=== PATIENT | female | born 1975 | race African-American/Black ===

== ENCOUNTER → 2024-04-20 11:30 | Outpatient (REF) | payer BC, SELFPAY | LOC: HWRAD 11:30 | PROVIDERS: ATTENDING PHYSICIAN Internal Medicine; FAMILY PHYSICIAN Internal Medicine | DX: R10.9 Unspecified abdominal pain (principal) | CPT/HCPCS: 74177; Q9967 ==

== ENCOUNTER → 2024-04-24 14:42 | Outpatient (REF) | payer BC, SELFPAY | LOC: HWRAD 14:42 | PROVIDERS: ATTENDING PHYSICIAN Internal Medicine | DX: E04.2 Nontoxic multinodular goiter (principal) | CPT/HCPCS: 76536 ==

== ENCOUNTER → 2024-04-25 06:59 | Outpatient (REF) | payer BC, SELFPAY | LOC: HWRAD 06:59 | PROVIDERS: ATTENDING PHYSICIAN Internal Medicine | DX: R10.9 Unspecified abdominal pain (principal); R93.89 Abnormal findings on diagnostic imaging of other specified body structures | CPT/HCPCS: 76700 ==

== ENCOUNTER → 2024-05-10 06:18 | Day surgery (SDC) | payer BC, SELFPAY | LOC: GI 06:18 | PROVIDERS: ATTENDING PHYSICIAN Internal Medicine Gastroenterology; FAMILY PHYSICIAN Internal Medicine | DX: K44.9 Diaphragmatic hernia without obstruction or gangrene (principal); K31.89 Other diseases of stomach and duodenum; K21.00 Gastro-esophageal reflux disease with esophagitis, without bleeding; R10.10 Upper abdominal pain, unspecified | CPT/HCPCS: 43239; 88305; 88342 ==

== ENCOUNTER 2024-05-11 15:56 | Inpatient (IN) | payer BC, SELFPAY ==
[2024-05-11 09:20] VITALS: BP 118/79
--- NOTE | 2024-05-11 09:27 | ED.GENMED ---
History of Present Illness
<Chiquis Rolle PA-C - Last Filed: 05/11/24 16:39>
General
Chief Complaint: Abdominal Symptoms
Source: patient
Exam Limitations: none
Time Seen by Provider: 05/11/24 09:25
Nursing documentation reviewed up to this point in time: agreed with
History of Present Illness
History of Present Illness:
48-year-old female with a past medical history of uterine fibroids, asthma, SBO 2009 presenting to emergency department today with concerns of persistent nausea and vomiting for the past few weeks its gotten progressively worse the past few days.
Patient reports that this all started 3 weeks ago when she started to get some upper abdominal pain with nausea and vomiting. She saw her primary care provider who ordered a CAT scan which revealed enhancing around the gallbladder. She
subsequently had ultrasound the gallbladder which did not show any evidence of cholecystitis. She also had lab work done she got the results back today and she says that they were normal. She was then referred to [facility] and had
endoscopy done which showed a small hiatal hernia, gastritis, and esophagitis. Patient also notes that she had a 13 pound weight loss within the past few weeks. Patient states that she has not had a bowel movement since 5 days ago. Patient denies
any chest pain, shortness of breath, vomiting belly pain, dysuria, hematuria. Patient denies fevers or chills, recent long distance travel, any sick contacts. Patient was started on Carafate and PPI by her GI doctor and she subsequently had
diarrhea. Patient states that she has not been able to tolerate any of her p.o. meds.
Past History
<Chiquis Rolle PA-C - Last Filed: 05/11/24 16:39>
Past History
ED Past Medical History: Other (Asthma, recent miscarriage 2 weeks ago)
Social History
Tobacco: Non-smoker
Alcohol: None
Family History
Family History: Other (Mother with history of Chiari malformation with decompression)
Review of Systems
<Chiquis Rolle PA-C - Last Filed: 05/11/24 16:39>
Review of Systems
All Other Systems: ROS reviewed and negative except as documented in HPI and ROS
Phy Exam
<Chiquis Rolle PA-C - Last Filed: 05/11/24 16:39>
Physical Exam
Physical Exam:
General: Patient is well appearing and in no acute distress; non-toxic
Skin: Warm and dry, no rashes or lesions
Head: Normocephalic, atraumatic
Eyes: Sclera non-icteric. EOMs intact. PERRLA.
Cardiac: Regular rate and rhythm, no murmurs
Peripheral Vascular: No lower extremity swelling or edema
Pulm: Normal respiratory effort, lung sounds equal bilaterally
Abdomen: No abdominal tenderness to palpation, no abdominal distention
Neuro: CN II-XII intact, no focal neurologic deficits.
Psychiatric: Appropriate mood and affect.
Course
<Chiquis Rolle PA-C - Last Filed: 05/11/24 16:39>
Orders/Labs/Results
Orders:
Orders
05/11/24 09:47
0.9% Sodium Chloride 1000 ml [Nss] 1,000 ml IV BOLUS
Ondansetron Injectable [Zofran] 4 mg IV NOW STA
05/11/24 09:55
Pantoprazole [Protonix IV] 40 mg IV NOW STA
05/11/24 10:01
Complete Blood Count/With Diff Urgent
05/11/24 10:42
Add On- LAB Urgent
Tests Added?: beta qual
05/11/24 10:43
Hida Scan [NM Hepatobiliary (hida)] Urgent
Comment:
Reason For Exam: persistent nausea and vomiting
05/11/24 11:59
Test Result ONCE
05/11/24 12:28
Comprehensive Metabolic Panel Urgent
HCG, Serum Qualitative Screen Urgent
Comment: ADD
Lipase Urgent
05/11/24 13:46
0.9% Sodium Chloride 1000 ml [Nss] 1,000 ml IV BOLUS
05/11/24 14:09
Ondansetron Injectable [Zofran] 4 mg IV NOW STA
05/11/24 15:43
Admit/Transfer Patient As Directed
Co-Sign Provider:
Level of Care: Inpatient admission
Assign to:: Medical/Surgical
Physician / Group: Radha
Diagnosis: ADAM, Intractable Nausea/Vomiting
Reason for Hospitalization: IVFs
Expected length of stay greater than two midnights?: Yes
ELOS- Estimated Length of Stay in days: 3
I certify the patient meets the requirements for IP care: Yes
05/11/24 15:44
Code Status As Directed
Resuscitation Status: Full Code
05/11/24 15:45
PRN Pain Medication Management As Directed
May give lesser potent ordered pain med per pt: Yes
preference::
Protocol:: Medication orders for pain may be administered in a
manner that supports deferring to patient preference
when the pt is:
- Requesting an ordered lesser potent pain medication.
Least to most potent pain medications are defined
as: acetaminophen < NSAID < tramadol < opioids
(morphine, oxycodone, hydromorphone).
- Requesting a lesser dose of the same medication IF
ORDERED.
- Requesting a less intrusive route of administration
if both routes are prescribed by the provider (PO <
IV).
Abnormal Lab Results
05/11/24 05/11/24
10:01 12:28
MCH 32.4 H pg
(27.0-31.0)
RDW 11.3 L %
(11.5-14.5)
MPV 10.8 H fL
(7.4-10.4)
Carbon Dioxide 13 L* mmol/L
(22-30)
BUN 26 H mg/dl
(7-17)
Creatinine 1.1 H mg/dL
(0.6-1.0)
Total Bilirubin 1.4 H mg/dl
(0.2-1.3)
05/11/24 10:01
05/11/24 12:28
Vital Signs
Initial and Last Documented VS:
Initial Vital Signs
Temp Pulse Resp BP Pulse Ox
97.9 F 126 16 118/79 98
05/11/24 09:20 05/11/24 09:20 05/11/24 09:20 05/11/24 09:20 05/11/24 09:20
Last Documented Vital Signs
Temp Pulse Resp BP Pulse Ox
97.9 F 99 16 118/63 100
05/11/24 09:20 05/11/24 15:07 05/11/24 15:07 05/11/24 15:07 05/11/24 15:07
<Pete Shah, DO - Last Filed: 05/11/24 14:07>
Orders/Labs/Results
Orders:
Orders
05/11/24 09:47
0.9% Sodium Chloride 1000 ml [Nss] 1,000 ml IV BOLUS
Ondansetron Injectable [Zofran] 4 mg IV NOW STA
05/11/24 09:55
Pantoprazole [Protonix IV] 40 mg IV NOW STA
05/11/24 10:01
Complete Blood Count/With Diff Urgent
05/11/24 10:42
Add On- LAB Urgent
Tests Added?: beta qual
05/11/24 10:43
Hida Scan [NM Hepatobiliary (hida)] Urgent
Comment:
Reason For Exam: persistent nausea and vomiting
05/11/24 11:59
Test Result ONCE
05/11/24 12:28
Comprehensive Metabolic Panel Urgent
HCG, Serum Qualitative Screen Urgent
Comment: ADD
Lipase Urgent
05/11/24 13:46
0.9% Sodium Chloride 1000 ml [Nss] 1,000 ml IV BOLUS
05/11/24 14:09
Ondansetron Injectable [Zofran] 4 mg IV NOW STA
05/11/24 15:43
Admit/Transfer Patient As Directed
Co-Sign Provider:
Level of Care: Inpatient admission
Assign to:: Medical/Surgical
Physician / Group: Radha
Diagnosis: ADAM, Intractable Nausea/Vomiting
Reason for Hospitalization: IVFs
Expected length of stay greater than two midnights?: Yes
ELOS- Estimated Length of Stay in days: 3
I certify the patient meets the requirements for IP care: Yes
05/11/24 15:44
Code Status As Directed
Resuscitation Status: Full Code
05/11/24 15:45
PRN Pain Medication Management As Directed
May give lesser potent ordered pain med per pt: Yes
preference::
Protocol:: Medication orders for pain may be administered in a
manner that supports deferring to patient preference
when the pt is:
- Requesting an ordered lesser potent pain medication.
Least to most potent pain medications are defined
as: acetaminophen < NSAID < tramadol < opioids
(morphine, oxycodone, hydromorphone).
- Requesting a lesser dose of the same medication IF
ORDERED.
- Requesting a less intrusive route of administration
if both routes are prescribed by the provider (PO <
IV).
Abnormal Lab Results
05/11/24 05/11/24
10:01 12:28
MCH 32.4 H pg
(27.0-31.0)
RDW 11.3 L %
(11.5-14.5)
MPV 10.8 H fL
(7.4-10.4)
Carbon Dioxide 13 L* mmol/L
(22-30)
BUN 26 H mg/dl
(7-17)
Creatinine 1.1 H mg/dL
(0.6-1.0)
Total Bilirubin 1.4 H mg/dl
(0.2-1.3)
05/11/24 10:01
05/11/24 12:28
Vital Signs
Initial and Last Documented VS:
Initial Vital Signs
Temp Pulse Resp BP Pulse Ox
97.9 F 126 16 118/79 98
05/11/24 09:20 05/11/24 09:20 05/11/24 09:20 05/11/24 09:20 05/11/24 09:20
Last Documented Vital Signs
Temp Pulse Resp BP Pulse Ox
97.9 F 99 16 118/63 100
05/11/24 09:20 05/11/24 15:07 05/11/24 15:07 05/11/24 15:07 05/11/24 15:07
Marilynlt;Chiquis Rolle PA-C - Last Filed: 05/11/24 16:39>
MDM/Problems Addressed
Differential Diagnosis Includes:
Differentials include bowel obstruction, ileus, gastroparesis,
MDM/Problems Addressed:
Nausea and vomiting:
48-year-old female with a past medical history of uterine fibroids, asthma, SBO 2009 presenting to emergency department today with concerns of persistent nausea and vomiting for the past few weeks its gotten progressively worse the past few days.
Patient reports that this all started 3 weeks ago when she started to get some upper abdominal pain with nausea and vomiting. She no longer has pain but her nausea and vomiting persist. Outpatient ultrasound the gallbladder was negative, CT scan
negative, lab work normal. Endoscopy demonstrated gastritis, esophagitis, small hiatal hernia. Patient notes a 13 pound weight loss. Patient states that this feels like her bowel obstruction in the past. On exam, her vitals are stable, she is
afebrile well-appearing, she has no abdominal tenderness to palpation. No abdominal distention. Will treat with IV fluids, Zofran, Protonix and reassess.
On reassessment, patient continues with vomiting persistently. Patient was given another dose of Zofran. Patient went for her HIDA scan which was normal and showed patent cystic and common bile ducts. Her lab work today demonstrates acidosis and
an acute kidney injury. She will need to stay in the hospital for fluid resuscitation. This is likely result of GI losses. Will admit for further evaluation and potential re CAT scan and GI evaluation.
Chronic conditions affecting care:
History of small bowel obstruction, asthma, uterine fibroids
Acute Exacerbation and/or Progression of Chronic Illness:
n/a
<Chiquis Rolle PA-C - Last Filed: 05/11/24 16:39>
*Pulse Oximetry
Patient hypoxic: no
*Critical Care Note
Total Time (30-74mins, 75-104mins- exclusive of procedures): Not Applicable
Data Reviewed
Review of Other/Old Records Reveals: Records (Reviewed endoscopy report on paper, reviewed echocardiogram from 2019)
Source: patient and records
Prescriptions/Medications Considered But Not Given:
n/a
Further Testing Considered But Not Given:
n/a
<Chiquis Rolle PA-C - Last Filed: 05/11/24 16:39>
Patient Management
Escalation/DeEscalation of care consider admission/obs:
Admission indicated, case reviewed with my attending
ED Attending Note
<Chiquis Rolle PA-C - Last Filed: 05/11/24 16:39>
-
Portions of this chart may have been created with voice recognition software.� Occasional wrong word or��sound alike� substitutions may have occurred due to the inherent limitations of voice recognition software.
<Pete Shah, DO - Last Filed: 05/11/24 14:07>
ED Attending Note
Patient seen and examined by attending physician: Yes
I performed the substantive portion of visit, reviewed & personally made and approve the management plan that is documented in note by myself or AISHWARYA.: Yes
ED Attending Note:
Seen with PA examined independently 48-year-old female status post fibroid removal with iatrogenic bowel injury with obstruction treated with an NG tube and then surgery, subsequent without any difficulty upper abdominal pain bloating
after eating some sushi full workup as an outpatient including CAT scan upper endoscopy and ultrasound of the right upper quadrant no definitive diagnosis other than gastritis and esophagitis, he is scheduled to have an outpatient HIDA scan she has
been vomiting, lost 13 pounds,
Labs are noted
Patient will require admission, HIDA scan is pending if unremarkable consideration for repeat CAT scan with IV p.o. contrast
Discharge Plan
Departure
Patient Disposition: Admit
Date of Disposition: 05/11/24
Time of Disposition: 14:50
Admit to: Med/Surg
Presentation/result/management discussed w/ accepting MD/DO: Hospitalist
Condition: Fair
Discharge Problem:
Nausea & vomiting
Interventions
Interventions:
*Risk Screen - Suicide Last Done: 05/11/24 09:20
*General Assessment Last Done: 05/11/24 09:20
*Neglect/Abuse Screening Last Done: 05/11/24 09:20
ED- Fall Risk Assessment Last Done: 05/11/24 11:11
*ED COVID-19 Vaccine History Last Done: 05/11/24 11:11
QM-Wgclfr-Kkeyxmsmif Assessment Last Done: 05/11/24 10:37
[2024-05-11 10:15] LABS: % Basophils 0.7 % (0-2); % Eosinophils 0.3 % (0-6); % Immature Granulocytes 0.2 % (0-0.5); % Lymphocytes 23.1 % (20.5-51.1); % Monocytes 8.3 % (1.7-9.3); % Neutrophils 67.4 % (42.2-75.2); Absolute Lymphocytes 1.3 10^3/uL (1.2-3.4); Absolute Monocytes 0.5 10^3/uL (0.1-0.6); Absolute Neutrophils 3.9 10^3/uL (1.4-6.5); Hematocrit 44.2 % (37.0-47.0); Hemoglobin 15.2 g/dL (12.0-16.0); Mean Corp Hgb Conc. 34.4 g/dL (33.0-37.0); Mean Corpuscular Hgb 32.4 pg (27.0-31.0); Mean Corpuscular Volume 94.2 fL (81.0-99.0); Mean Platelet Volume 10.8 fL (7.4-10.4); Nucleated Red Blood Cells % 0 %; Platelet Count 337 10^3/uL (130-400); Red Blood Cell Count 4.69 10^6/uL (4.20-5.40); Red Cell Dist. Width 11.3 % (11.5-14.5); White Blood Cell Count 5.8 10^3/uL (4.8-10.8)
[2024-05-11] MEDS: PROTONIX IV 40 MG IV (10:29)
[2024-05-11] MEDS: ZOFRAN 4 MG IV ×2 (10:29→15:06)
[2024-05-11] MEDS: NSS 1000 IV ×2 (10:29→15:05)
[2024-05-11 10:30] VITALS: BMI 20.1
[2024-05-11 10:32] VITALS: BMI 21.5
[2024-05-11 12:54] LABS: HCG, Serum Qualitative Screen Negative
[2024-05-11 13:06] LABS: ALT (SGPT) 18 U/L (0-35); AST (SGOT) 33 U/L (14-36); Albumin 4.8 g/dl (3.5-5.0); Alkaline Phosphatase 89 U/L (38-126); Blood Urea Nitrogen 26 mg/dl (7-17); Calcium 9.9 mg/dl (8.4-10.2); Carbon Dioxide 13 mmol/L (22-30); Chloride 100 mmol/L (98-107); Estimated Creatinine Clearance 53 ml/min; Glucose 71 mg/dl (70-99); Lipase 154 U/L (23-300); Potassium 4.1 mmol/L (3.5-5.1); Sodium 140 mmol/L (135-145); Total Bilirubin 1.4 mg/dl (0.2-1.3); Total Protein 7.2 g/dl (6.3-8.2); eGFR > 60.00
[2024-05-11 15:07] VITALS: BP 118/63
--- NOTE | 2024-05-11 15:37 | HPS.HSE ---
Family Physician
-
Family Physician: Siobhan Myers
Chief Complaint
-
Intractable Nausea and Vomiting
History of Present Illness
Patient is a 48 yo female with a history of asthma, uterine fibroids, and SBO in 2009 presents with nausea and vomiting. Her symptoms began 3 weeks ago when she developed acute, left-sided burning abdominal pain after a meal of sushi. A few days
later she developed persistent nausea and vomiting that would occur a couple hours after she would eat. She was then started on a PPI and sucralfate for suspected gastric ulcer, and since starting these her burning abdominal pain has subsided.
However, her vomiting has continued to worsen and starting 5 days ago there is now green bilious matter in her emesis. She notes that she has lost weight because she cannot keep any food down. This morning she became lightheaded and short of breath
with heart palpitations while showering. She reports constipation as well for the past 6 days. She does not smoke, use illicit drugs including marijuana, or drink alcohol. She is concerned that she has a partial bowel obstruction, since her symptoms
are similar to her past SBO. She denies chest pain, diarrhea, dysuria, urinary retention/frequency, joint pains, or myalgias.
Medical History
Past Medical History
Past Medical History: Reports Other
Additional Past Medical History:
Asthma
Past Surgical History: Reports None
Social History
Tobacco: Non-smoker
Drug: Other (Denies Marijuana)
Family History
Family History: Not pertinent
Allergies / Home Medications
Allergies reflects when Allergies were last updated in [facility].
Home Medications with original date entered in [facility]
Allergy/Medication List:
Allergies
Allergy/AdvReac Type Severity Reaction Status Date / Time
spironolactone Allergy Intermediate Unknown Verified 05/11/24 09:19
Home Medications
albuterol sulfate 2.5 mg/0.5 mL solution for nebulization 5 mg inhalation Q4H Lung/Breathing Issues 05/11/24
fluticasone furoate 200 mcg-vilanterol 25 mcg/dose inhalation powder (Breo Ellipta) 1 inh inhalation DAILY Lung/Breathing Issues 05/11/24
omeprazole 40 mg capsule,delayed release 40 mg PO DAILY Gastrointestinal Issue 05/11/24
ondansetron 4 mg disintegrating tablet 4 mg PO Q8H PRN nausea 05/11/24
sucralfate 1 gram tablet (Carafate) 1 g PO ACHS Gastrointestinal Issue 05/11/24
Review of Systems
-
A 12 point ROS was completed and negative except as noted: Yes
Constitutional: Denies Fever or Chills
Respiratory: Denies Cough or Trouble Breathing
Cardiac: Denies Chest Pain or Palpitations
Abdomen/GI: Reports See HPI
Physical Exam
Vital Signs
Vital Signs
Temp Pulse Resp BP Pulse Ox
97.9 F 99 16 118/63 100
05/11/24 09:20 05/11/24 15:07 05/11/24 15:07 05/11/24 15:07 05/11/24 15:07
Physical Exam
General: Comfortable and Conversant
HEENT: Anicteric and Moist mucous membranes
Respiratory: Clear and Non Labored Respirations
Cardiac: S1/S2 and Regular Rhythm
GI: Soft and Non Tender
Musculoskeletal: No Clubbing, No Cyanosis and No Edema
Skin: Warm and Dry
Neuro: Awake, Alert, Oriented and Nonfocal/grossly intact
Psych: Calm
Laboratory Results
-
05/11/24 10:01
05/11/24 12:28
Laboratory Results
Total Bilirubin 1.4 mg/dl (0.2-1.3) H 05/11/24 12:28
AST 33 U/L (14-36) 05/11/24 12:28
ALT 18 U/L (0-35) 05/11/24 12:28
Alkaline Phosphatase 89 U/L (38-126) 05/11/24 12:28
Lipase 154 U/L (23-300) 05/11/24 12:28
Abd/Pelvis CT Scan - Apr 20
Mild hyperenhancement of the gallbladder wall, with mild adjacent fat stranding adjacent gallbladder. No gallbladder distention, and no radiopaque gallstones are seen. Acute cholecystitis is considered unlikely, however if there is clinical
suspicion, right upper quadrant ultrasound may be helpful.
Abd Ultrasound - Apr 25
Gallbladder is of normal appearance. No evidence of cholelithiasis or acute cholecystitis. No biliary ductal dilation.
Endoscopy - May 10
LA Grade A Esophagitis
Gastritis
HIDA Scan - May 11
Patent cystic and common bile ducts. No scintigraphic evidence of acute cholecystitis.
Data Reviewed
-
Lab Data: Labs Reviewed by me
Old Records: Reviewed
Impression/Plan
-
Acute Renal Insufficiency
-Continue IVFs
-Recheck creatinine in AM
Metabolics Acidosis
-Give sodium bicarb now and start drip
-Recheck labs in AM
Intractable Nausea and Vomiting, unclear etiology, possibly gastroparesis
-Change Zofran to Reglan
-Check Obstruction Series
-Allow clear liquids
Esophagitis/Gastritis
-Continue Carafate and Protonix
DVT proph: Lovenox
Code Status: Full Code
--- NOTE | 2024-05-11 16:52 | EDRN ---
This charge nurse was asked to speak to patient because she is refusing to go to a semi private room and will leave AMA if she cannot go to a semi private room. I spoke to the patient, and offered that she could wait until all the discharges have
left the hospital to see if a private room becomes available, but there were no guarantees that she would get a private room. I explained the types of patients that require private rooms and unfortunately those often take all of the private rooms
that we have available. Pt seems to understand and will wait to see if a private room becomes available. 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
[2024-05-11 18:19] VITALS: BP 100/62
--- NOTE | 2024-05-11 18:22 | W.PN.UPDATE ---
Update Note
Progress Note Update
This is an addendum to the H&P written by Brooklyn Schaffer on 05/11/2024.� Patient seen and examined independently with PA.
48-year-old female past medical history of asthma, small bowel obstruction in 2009 presenting with 3 weeks of persistent daily vomiting.� She underwent CT scan of abdomen pelvis on 04/20 without any notable findings.� She underwent abdominal
ultrasound 04/25 without any abnormality.� She underwent EGD yesterday which showed grade a esophagitis, small hiatal hernia, gastritis.
HIDA scan today is unremarkable.�
Labs show anion gap metabolic acidosis and ADAM.
Unclear etiology of persistent vomiting.� Could be secondary to gastroparesis which will require outpatient gastric emptying study.� Check obstruction series to rule out bowel obstruction.� As needed Reglan to help with symptoms.� Clear liquid diet
and try to advance diet.� Consult GI if no improvement in symptoms.� Bicarb drip for metabolic acidosis.
[2024-05-11 18:52] VITALS: BP 108/61
[2024-05-11 18:53] VITALS: BMI 22.0
--- NOTE | 2024-05-11 18:53 | TRANSFER ---
pt arrives from [facility] at 1830. walked into room. vitals stable. family with pt. 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
[2024-05-11 19:00] VITALS: BP 119/63
[2024-05-11] MEDS: SYMBICORT 160/4.5 MCG INHALER 2 PUFF INH (19:46)
[2024-05-11] MEDS: SODIUM BICARBONATE 50 MEQ IV (19:55)
[2024-05-11] MEDS: SODIUM BICARBONATE 1150 MEQ IV (19:56)
[2024-05-11] MEDS: LOVENOX 40 MG SC (19:57)
[2024-05-11 23:10] VITALS: BP 105/69
[2024-05-11] MEDS: REGLAN 5 MG IV (23:56)
[2024-05-11] MEDS: FLUSH (NSS) 2 FLUSH IV (23:56)
[2024-05-12] MEDS: SODIUM BICARBONATE 1150 MEQ IV ×2 (06:21→17:26)
[2024-05-12 07:55] VITALS: BP 103/64
[2024-05-12 09:01] LABS: Hematocrit 37.8 % (37.0-47.0); Hemoglobin 12.6 g/dL (12.0-16.0); Mean Corp Hgb Conc. 33.3 g/dL (33.0-37.0); Mean Corpuscular Hgb 32.2 pg (27.0-31.0); Mean Corpuscular Volume 96.7 fL (81.0-99.0); Mean Platelet Volume 10.7 fL (7.4-10.4); Platelet Count 255 10^3/uL (130-400); Red Blood Cell Count 3.91 10^6/uL (4.20-5.40); Red Cell Dist. Width 11.2 % (11.5-14.5); White Blood Cell Count 5.3 10^3/uL (4.8-10.8)
[2024-05-12] MEDS: NON-FORMULARY ITEM 1 MCG INH (09:02)
--- NOTE | 2024-05-12 09:09 | W.PN.HOSP.TC ---
Today's Communication/Plan
-
N.p.o.
IV fluids
General Surgery consult
Assessment / Plan
Assessment / Plan
Gen-AAOx3, NAD
HEENT-NC, AT, anicteric, clear oral mm
Neck-supple
CV-reg, no M, +S1/S2
Lungs-clear B/L
Abd-soft, NT, ND
Ext-no edema
Musculoskeletal-no cyanosis, clubbing
Skin-warm and dry
Neuro-grossly non-focal
Psych-calm, cooperative
SBO -prior history of SBO in [address] of [address] patient on n.p.o., IV fluids, general surgery consult. Obstruction series noted.
ADAM - due to volume depletion. Metabolic acidosis noted. Continue sodium bicarb infusion. Labs pending for today. Etiology is decreased oral intake due to nausea and vomiting, anorexia.
Grade A esophagitis/gastritis -noted on EGD, 05/10. Continue Protonix.
Mild intermittent asthma -stable.
Full code
Anticipated Discharge: > 48 hours
Subjective/Interval History
-
Date of Service: May 12, 2024
Patient seen and examined. Denies further vomiting. Abdominal pain improving.
Objective Data
-
Labs:
Laboratory Results
05/12/24 05/12/24
08:08 08:09
WBC 5.3
Hgb 12.6
Hct 37.8
Plt Count 255 D
Sodium Pending
Potassium Pending
Chloride Pending
Carbon Dioxide Pending
BUN Pending
Creatinine Pending
Glucose Pending
Calcium Pending
Vital Signs:
Vital Signs
Temp Pulse Resp BP Pulse Ox
98.3 F 97 16 103/64 99
05/11/24 23:10 05/12/24 07:55 05/12/24 07:55 05/12/24 07:55 05/12/24 07:55
I&O
05/11/24 05/12/24 05/13/24
06:59 06:59 06:59
Intake Total 1680 / 1680
Balance 1680 / 1680
Review of Systems
-
History Source: Patient
All other systems: Reviewed and negative
[2024-05-12] MEDS: NSS (PRESERVATIVE FREE) 10 ML IV (09:31)
[2024-05-12] MEDS: PROTONIX IV 40 MG IV (09:31)
[2024-05-12 09:43] LABS: Blood Urea Nitrogen 12 mg/dl (7-17); Carbon Dioxide 20 mmol/L (22-30); Chloride 96 mmol/L (98-107); Estimated Creatinine Clearance 73 ml/min; Glucose 74 mg/dl (70-99); Magnesium 1.8 mg/dl (1.6-2.3); Potassium 3.7 mmol/L (3.5-5.1); Sodium 138 mmol/L (135-145); eGFR > 60.00
[2024-05-12] MEDS: OMNIPAQUE 50 ML PO (11:40)
[2024-05-12] MEDS: ZOFRAN 4 MG IV ×2 (11:45→20:43)
--- NOTE | 2024-05-12 13:26 | CON.GS ---
Consultation
-
Date/Time Consultation Requested: 05/12/24 0910
Requesting Provider: Jenny
Performing Provider: Kolton Vázquez
Medical History
-
Chief Complaint: intractable nausea
History of Present Illness:
48 yo female with a history of asthma, , RAL myomectomy in 2009 with course complicated by a SBO with subsequent ex lap for HAY that admission who presents with a 3 week history of nausea. She was initially able to tolerate light foods such
as soups and toast but for the past 4-5 days has not been able to tolerate much if any PO intake. She also notes that although she has been passing flatus, she has been unable to pass a BM over the past 4-5 days as well with discomfort in her
abdomen similar to prior obstruction. On exam, the abdomen is nontender and nondistended. She has been following with her PCP as well as Dr. Morin of gastroenterology for diagnostic work up with normal outpatient HIDA and US. She had EGD on 05/10 as
an outpatient as well with esophagitis/gastritis noted and biopsies sent. She was started on omeprazole and carafate thereafter with plan for gastric emptying study if no improvement on these meds.
Past Medical History
Past Medical History: Asthma, GERD (esophagitis) and Other (Chiari malformation)
Past Surgical History: , Gynecological (RAL myomectomy in 2010 at [facility]) and Other (Ex lap with HAY in 2009)
Social History
Tobacco: Non-Smoker
Family History
Family History: Reviewed & Not Pertinent
Allergies / Home Medications
Allergy/AdvReac Type Severity Reaction Status Date / Time
spironolactone Allergy 'heart Verified 05/11/24 17:08
races'
�Medication �Instructions �Recorded �Confirmed �Type
albuterol sulfate 2.5 mg/0.5 mL 5 mg inhalation Q4H Lung/Breathing 05/11/24 05/11/24 History
solution for nebulization Issues
fluticasone furoate 200 1 inh inhalation DAILY 05/11/24 05/11/24 History
mcg-vilanterol 25 mcg/dose Lung/Breathing Issues
inhalation powder (Breo Ellipta)
omeprazole 40 mg capsule,delayed 40 mg PO DAILY Gastrointestinal 05/11/24 05/11/24 History
release Issue
ondansetron 4 mg disintegrating 4 mg PO Q8H PRN nausea 05/11/24 05/11/24 History
tablet
sucralfate 1 gram tablet (Carafate) 1 g PO ACHS Gastrointestinal Issue 05/11/24 05/11/24 History
Review of Systems
-
History Source: Patient and Family
All other systems: Negative unless noted
A 10 point review of systems was completed, and was negative except as per HPI.
Physical Exam
Vital Signs
Temp Pulse Resp BP Pulse Ox
98.3 F 97 16 103/64 99
05/11/24 23:10 05/12/24 07:55 05/12/24 07:55 05/12/24 07:55 05/12/24 07:55
05/11/24 05/12/24 05/13/24
06:59 06:59 06:59
Actual Weight 58.014 kg
Body Mass Index (BMI) 22.0
Lab Results
05/12/24 08:09
05/12/24 08:08
WBC 5.3 10^3/uL (4.8-10.8) 05/12/24 08:09
Hgb 12.6 g/dL (12.0-16.0) 05/12/24 08:09
Hct 37.8 % (37.0-47.0) 05/12/24 08:09
Plt Count 255 10^3/uL (130-400) D 05/12/24 08:09
Abs Immat Gran (auto) 0.0 10^3/uL (0-0.05) 05/11/24 10:01
Neutrophils % 67.4 % (42.2-75.2) 05/11/24 10:01
Physical Exam
General: Well Developed and No Apparent Distress
HEENT: Moist Mucous Membranes
Respiratory: Non Labored Respirations
GI: Soft, Non Tender and Non Distended
Skin: Warm and Dry
Neuro: Awake and AO x 3
Psych: Calm
Data Reviewed
-
Radiology: Image Personally Visualized and interpreted, Report Reviewed by me, Discussed with Physician, Discussed with Patient and Discussed with Family
Labs: Labs Reviewed by me, Discussed with Physician, Discussed with Patient and Discussed with Family
Old Records: Reviewed
Assessment / Plan
-
48 yo female with a history of asthma, RAL myomectomy in 2009 with course complicated by a SBO with subsequent ex lap for HAY that admission who presents with a 3 week history of nausea. She also notes that although she has been passing flatus, she
has been unable to pass a BM over the past 4-5 days as well as worsening nausea and vomiting. Exam benign. She has been following with her PCP as well as Dr. Morin of gastroenterology for diagnostic work up with normal outpatient HIDA and US. She
had EGD on 05/10 as an outpatient as well with esophagitis/gastritis noted and biopsies sent. She was started on omeprazole and carafate thereafter with plan for gastric emptying study if no improvement on these meds. KUB with some concern for SBO
although no significant bowel distention noted. AFVSS. No leukocytosis.
--Plan CT abd/pelvis with PO contrast to further evaluate
--Keep NPO
--Further surgical recs pending CT findings
--- NOTE | 2024-05-12 14:36 | CM ---
IA completed with pt and at bedside.
Pt is a 48 yr old female admitted with nausea/vomitting and constipation. Work up for possible SBO
At baseline, pt is indep and working.
PCP; Siobhan Myers
Pharm; [address]
PLAN; Likely home with no needs; check in with pt at in for needs
[2024-05-12 15:00] VITALS: BP 112/62
[2024-05-12] MEDS: COMPAZINE 10 MG IV (17:27)
[2024-05-12] MEDS: LOVENOX 40 MG SC (17:27)
[2024-05-12] MEDS: FLUSH (NSS) 2 FLUSH IV (20:43)
[2024-05-12 23:42] VITALS: BP 118/66
[2024-05-13 07:07] VITALS: BP 99/57
[2024-05-13] MEDS: NON-FORMULARY ITEM 1 MCG INH (07:21)
[2024-05-13] MEDS: SODIUM BICARBONATE 1150 MEQ IV (08:31)
[2024-05-13] MEDS: PROTONIX IV 40 MG IV (08:31)
[2024-05-13] MEDS: ZOFRAN 4 MG IV ×2 (08:32→16:59)
[2024-05-13] MEDS: NSS (PRESERVATIVE FREE) 10 ML IV (08:32)
[2024-05-13 08:36] LABS: ALT (SGPT) 23 U/L (0-35); AST (SGOT) 33 U/L (14-36); Albumin 3.6 g/dl (3.5-5.0); Alkaline Phosphatase 68 U/L (38-126); Blood Urea Nitrogen 6 mg/dl (7-17); Calcium 9.1 mg/dl (8.4-10.2); Carbon Dioxide 30 mmol/L (22-30); Chloride 94 mmol/L (98-107); Estimated Creatinine Clearance 73 ml/min; Glucose 70 mg/dl (70-99); Potassium 3.4 mmol/L (3.5-5.1); Sodium 140 mmol/L (135-145); Total Bilirubin 1.4 mg/dl (0.2-1.3); Total Protein 5.7 g/dl (6.3-8.2); eGFR > 60.00
[2024-05-13] MEDS: NSS 1000 IV ×2 (09:41→22:05)
--- NOTE | 2024-05-13 09:47 | W.PN.HOSP.TC ---
Today's Communication/Plan
-
MR enterography
IV KCl rider
Check magnesium
Assessment / Plan
Assessment / Plan
Gen-AAOx3, NAD
HEENT-NC, AT, anicteric, clear oral mm
Neck-supple
CV-reg, no M, +S1/S2
Lungs-clear B/L
Abd-soft, NT, ND
Ext-no edema
Musculoskeletal-no cyanosis, clubbing
Skin-warm and dry
Neuro-grossly non-focal
Psych-calm, cooperative
SBO -prior history of SBO in 2009 requiring lysis of adhesions. Continue n.p.o., IV fluids. Spoke with general surgery, plan for MR enterography given concern for small bowel mass on CT.
ADAM - due to volume depletion. ADAM resolved with IV fluids.
Metabolic acidosis -resolved. Stop bicarbonate infusion, will change to normal saline.
Hypokalemia -replete intravenously. Check magnesium.
Grade A esophagitis/gastritis -noted on EGD, 05/10. Continue Protonix.
Mild intermittent asthma -stable.
Full code
Anticipated Discharge: > 48 hours
Subjective/Interval History
-
Date of Service: May 13, 2024
Patient seen and examined. Still with nausea but no further vomiting. No bowel movement since Tuesday.
Objective Data
-
Labs:
Laboratory Results
05/13/24
07:31
Sodium 140
Potassium 3.4 L
Chloride 94 L
Carbon Dioxide 30
BUN 6 L
Creatinine 0.8
Glucose 70
Calcium 9.1
Total Bilirubin 1.4 H
AST 33
ALT 23
Alkaline Phosphatase 68
Vital Signs:
Vital Signs
Temp Pulse Resp BP Pulse Ox
97.9 F 98 15 99/57 100
05/13/24 07:07 09/08/24 07:07 05/13/24 07:07 05/13/24 07:07 05/13/24 07:07
I&O
05/12/24 05/13/24 05/14/24
06:59 06:59 06:59
Intake Total 1680 / 1680 960 / 960
Balance 1680 / 1680 960 / 960
Review of Systems
-
History Source: Patient
All other systems: Reviewed and negative
[2024-05-13 10:11] LABS: Magnesium 1.8 mg/dl (1.6-2.3)
[2024-05-13] MEDS: KCL 270 MEQ IV (10:36)
--- NOTE | 2024-05-13 10:56 | W.PN.GS2 ---
Addendum entered and electronically signed by Ervin Vázquez MD 05/13/24 11:47:
I saw and examined the patient.
The INFORMATION SYSTEMS SECURITY MANAGER's note was reviewed and I agree with the note.
Comment:
48-year-old male with PMH of asthma, fibroids, Chiari malformation (asymptomatic, incidental finding), who underwent myomectomy in 2009 which was complicated by a prolonged ileus/obstruction and underwent ex lap with lysis of adhesions 17 days
later, who presents for concern of worsening nausea and vomiting associated with abdominal pain. Initially, she was worked up with a CT on 04/20 which showed findings related to the gallbladder, no other issues. An ultrasound was done on 04/25 which
showed a normal gallbladder without gallstones or evidence of cholecystitis. She then underwent an EGD on 05/[address] Morin, which showed esophagitis and gastritis, biopsies were sent. Over the last 3 days, she had worsening of her abdominal
pain associated with worsening nausea and bilious vomiting. She states that this is similar to her prior SBO, but this time she continues to pass flatus. In the ED, a HIDA was done, which was negative. An AXR was done showing signs concerning for
an obstruction. General surgery was consulted for further management
She denies nausea or vomiting, is passing flatus, but no BMs yet.
AFVSS, abdomen soft, nondistended, nontender, no rebound or guarding
- CTAP shows partial SBO with transition point in the proximal jejenum associated with segmental thickening
-Upon with Dr. Javier, there may have been some associated thickening CT 3 weeks ago, but difficult to be sure as there is no oral contrast in that area
�Differential for small bowel thickening is broad, including infectious, inflammatory (Crohn's/stricture), ulcer, mass (benign versus malignant)
�Will order MRE and attempt to clarify diagnosis
�Follow-up AXR to follow contrast through her GI tract
�Will order fecal calprotectin, CRP, prealbumin
�Will consult GI for their opinion/recommendations
�Okay to advance to clears; okay for p.o. meds
� No antibiotics currently indicated from surgical standpoint
� Appreciate hospitalist
Original Note:
Today's Communication / Plan
-
Clear liquids
Continue GI work up
Assessment / Plan
-
48 yo female presenting with nausea x3 weeks with recent onset of vomiting as well (following as OP with GI with recent scope). No BM for [address] imaging yesterday consistent with a partial SBO with transition point near an area of small bowel
wall thickening in the LUQ, unclear etiology; inflammatory (crohn's, infectious, etc) vs mechanical (mass). Initially with pain in the LUQ which has now resolved.
AFVSS. Intermittent nausea, abdominal exam is benign.
--Trial of clears
--XR of abd this am to follow contrast through
--MRE study
--Send fecal calprotectin if patient has BM
--Check CRP
--Will consult gastroenterology to follow with us
--Analgesics/antiemetics
--Medical management as per primary team
Subjective Data
-
Date of Service: May 13, 2024
Patient seen and examined at bedside with Dr. Vázquez. Spouse present, questions addressed. She had some nausea which improved with antiemetic early this am. No vomiting since the ED. Not passing stool or flatus today. Denies bloating or abdominal
pain.
Objective Data
-
Intake and Output
05/12/24 05/13/24 05/14/24
06:59 06:59 06:59
Intake Total 1680 / 1680 960 / 960
Balance 1680 / 1680 960 / 960
Intake:
Oral fluids 480 / 480
IV fluids (Total) 1200 / 1200 960 / 960
Other:
Number of approximated SMALL 3
amounts of urine
Number of approximated MODERATE 2
amounts of urine
Number of approximated LARGE 1
amounts of urine
Vital Signs
Temp Pulse Resp BP Pulse Ox
97.9 F 98 15 99/57 100
05/13/24 07:07 05/13/24 07:07 05/13/24 07:07 05/13/24 07:07 05/13/24 07:07
Lab Results
05/12/24 08:09
05/13/24 07:31
Calcium 9.1 mg/dl (8.4-10.2) 05/13/24 07:31
Magnesium 1.8 mg/dl (1.6-2.3) 05/13/24 07:31
Total Bilirubin 1.4 mg/dl (0.2-1.3) H 05/13/24 07:31
AST 33 U/L (14-36) 05/13/24 07:31
ALT 23 U/L (0-35) 05/13/24 07:31
Alkaline Phosphatase 68 U/L (38-126) 05/13/24 07:31
Total Protein 5.7 g/dl (6.3-8.2) L D 05/13/24 07:31
Albumin 3.6 g/dl (3.5-5.0) 05/13/24 07:31
Physical Exam
-
NAD
ABD soft, nt, nd
--- NOTE | 2024-05-13 11:15 | CON.GI ---
Consultation
-
Date/Time Consultation Requested: 05/13/24
Date/Time Consultation Performed: 05/13/24
Requesting Provider: Dr. Vázquez
Performing Provider: Dr. Gayle
Reason for Consultation: pSBO
Medical History
Chief Complaint / HPI
Chief Complaint: N/V, epigastric pain
History of Present Illness:
Ms. Eng is a 48-year-old female with past medical history of asthma, fibroids, postoperative small bowel obstruction admitted with ongoing abdominal pain, nausea and vomiting. She follows with Dr. Valdez as an outpatient, for workup of this
issue. Initially, evaluated by PCP and underwent a CT abdomen pelvis and ultrasound without any acute GI pathology identified. She was then started on PPI twice daily with some symptomatic improvement. Initially, she did not have any nausea or
vomiting, then underwent an EGD with findings of a small hiatal hernia, gastritis, bilious fluid in the stomach. Following her EGD she started having persistent nausea and vomiting which prompted her to come into the ER for further evaluation.
Repeat CT scan performed after admission demonstrated a partial small bowel obstruction with transition point near an area of small bowel wall thickening in the left upper quadrant. She initially had LUQ abdominal pain at the start of her sx a few
weeks ago, but that has resolved, she has had no abdominal pain for >1 week. N/V only started last tuesday. She does feel like this is how her last bowel obstruction felt back in 2009 following her fibroid surgery at [facility]. General surgery
consulted. Reports her last bowel movement was 5 days ago, currently not passing any stool or flatus. Reports at baseline, no issues with constipation, moves her bowels regularly without issue. Denies any blood thinners or NSAID use. Denies
tobacco, alcohol or illicit drug use. Denies family history of GI malignancy, IBD, celiac disease.
VSS. Labs WNL.
CT A/P w/ PO and IV Contrast 05/12/24:
There are dilated loops of proximal to mid jejunum, with mild to moderate wall thickening and prominence of the valvulae conniventes within these dilated loops of small bowel. There appears to be a transition in caliber in the left lower
abdomen/upper pelvis, in a region of apparent wall thickening. The Gallbladder appears contracted with suggestion of GB wall thickening, which is nonspecific.
Abd Xray (05/11/24): Dilated small bowel loops w/ air-fluid levels, with nondilated colon, suggestive of small bowel obstruction.
HIDA (05/11/24): There was unremarkable uptake within the hepatic parenchyma with prompt visualization of a normal appearing hepatobiliary tree. The gallbladder visualizes normally and there is normal clearance from the hepatic parenchyma into the
intestines.
CT abdomen/pelvis with IV and oral contrast 04/20/2024
Mild hyperenhancement of gallbladder wall with mild adjacent fat stranding. No gallbladder distention or gallstones.
Uterine fibroid measuring 3.9 cm
Ultrasound abdomen 04/25/2024
Gallbladder is normal. No evidence of cholelithiasis or acute cholecystitis. No biliary dilatation.
EGD 05/10/2024: LA grade a esophagitis. Small hiatal hernia. Mild inflammation characterized by erythema found in the stomach. A small amount of bilious fluid mixed with residual food was found in the gastric body interfering with visualization.
The examined duodenum appeared normal. Pathology pending.
Past Medical History
Past Medical History: Asthma and Other (fibroids)
Social History
Tobacco: Non-Smoker
Alcohol: None
Drug: None
Personal:
Living: With Family
Employment: Employed
Family History
Family History: Reviewed & Not Pertinent
Allergies / Home Medications
Allergy/AdvReac Type Severity Reaction Status Date / Time
spironolactone Allergy 'heart Verified 05/11/24 17:08
races'
�Medication �Instructions �Recorded
albuterol sulfate 2.5 mg/0.5 mL 5 mg inhalation Q4H Lung/Breathing 05/11/24
solution for nebulization Issues
fluticasone furoate 200 1 inh inhalation DAILY 05/11/24
mcg-vilanterol 25 mcg/dose Lung/Breathing Issues
inhalation powder (Breo Ellipta)
omeprazole 40 mg capsule,delayed 40 mg PO DAILY Gastrointestinal 05/11/24
release Issue
ondansetron 4 mg disintegrating 4 mg PO Q8H PRN nausea 05/11/24
tablet
sucralfate 1 gram tablet (Carafate) 1 g PO ACHS Gastrointestinal Issue 05/11/24
Review of Systems
-
History Source: Patient and Family
All other systems: A 12 pt ROS was Negative except as stated above in HPI
Vital Signs
Temp Pulse Resp BP Pulse Ox
97.9 F 98 15 99/57 100
05/13/24 07:07 05/13/24 07:07 05/13/24 07:07 05/13/24 07:07 05/13/24 07:07
Physical Exam
Exam
General: Well Developed, Well Nourished, No Apparent Distress and Comfortable
GI: Soft, Non Tender, Non Distended and Normal Bowel Sounds
Results
WBC 5.3 10^3/uL (4.8-10.8) 05/12/24 08:09
Hgb 12.6 g/dL (12.0-16.0) 05/12/24 08:09
Hct 37.8 % (37.0-47.0) 05/12/24 08:09
MCV 96.7 fL (81.0-99.0) 05/12/24 08:09
Plt Count 255 10^3/uL (130-400) D 05/12/24 08:09
Absolute Neuts (auto) 3.9 10^3/uL (1.4-6.5) 05/11/24 10:01
Sodium 140 mmol/L (135-145) 05/13/24 07:31
Potassium 3.4 mmol/L (3.5-5.1) L 05/13/24 07:31
Chloride 94 mmol/L (98-107) L 05/13/24 07:31
Carbon Dioxide 30 mmol/L (22-30) 05/13/24 07:31
BUN 6 mg/dl (7-17) L 05/13/24 07:31
Creatinine 0.8 mg/dL (0.6-1.0) 05/13/24 07:31
Calcium 9.1 mg/dl (8.4-10.2) 05/13/24 07:31
Total Bilirubin 1.4 mg/dl (0.2-1.3) H 05/13/24 07:31
AST 33 U/L (14-36) 05/13/24 07:31
ALT 23 U/L (0-35) 05/13/24 07:31
Alkaline Phosphatase 68 U/L (38-126) 05/13/24 07:31
Lipase 154 U/L (23-300) 05/11/24 12:28
Diagnostic Image Results:
Prior GI Procedures:
EGD:
Colonoscopy:
Assessment / Plan
-
48-year-old female with past medical history of asthma, fibroids, postoperative small bowel obstruction admitted with persistent N/V found to have a partial small bowel obstruction, with normal imaging 2 weeks ago.
Partial Small Bowel Obstruction--ddx: infectious vs. inflammatory/new Crohns dx vs. mass vs. intussusception given lack of findings of recent CT scan
-not seen on CT scan 2 weeks ago; repeat CT A/P with partial SBO, transition point in prox jejunum associated with segmental thickening
-s/p EGD on 05/10, bilious fluid/food residue in stomach
-benign abdominal exam, no NGT at this time, trial of CLD
-general surgery following
-agree with MRE for better evaluation of the small bowel; UGI s/ SBFT also ordered
-records from [facility]
-check fecal calprotectin, CRP
-GI will continue to follow
Discussed plan at length with patient and at bedside. All questions answered.
Total Time Spent with Patient (in minutes): 40
Data Reviewed
-
Radiology: Report Reviewed by me
CT Scan: Report Reviewed by me
Ultrasound: Report Reviewed by me
Old Records: Reviewed
-
-
Thank you for consultation and allowing me to participate in the patient's care. Please call the electrical and electronic assembler GI physician during the after hours with any questions or concerns.
[2024-05-13 12:42] LABS: Prealbumin (Transthyretin) 9.9 mg/dl (17.6-36.0)
[2024-05-13 15:48] VITALS: BP 98/72
[2024-05-13] MEDS: LOVENOX 40 MG SC (16:58)
[2024-05-13 23:18] VITALS: BP 110/63
[2024-05-14] MEDS: ZOFRAN 4 MG IV ×3 (00:31→17:42)
[2024-05-14 04:39] LABS: Hematocrit 31.9 % (37.0-47.0); Hemoglobin 10.7 g/dL (12.0-16.0); Mean Corp Hgb Conc. 33.5 g/dL (33.0-37.0); Mean Corpuscular Hgb 31.8 pg (27.0-31.0); Mean Corpuscular Volume 94.9 fL (81.0-99.0); Mean Platelet Volume 10.7 fL (7.4-10.4); Platelet Count 226 10^3/uL (130-400); Red Blood Cell Count 3.36 10^6/uL (4.20-5.40); Red Cell Dist. Width 11.4 % (11.5-14.5); White Blood Cell Count 4.1 10^3/uL (4.8-10.8)
[2024-05-14 05:30] LABS: ALT (SGPT) 24 U/L (0-35); AST (SGOT) 35 U/L (14-36); Albumin 3.7 g/dl (3.5-5.0); Alkaline Phosphatase 68 U/L (38-126); Blood Urea Nitrogen 5 mg/dl (7-17); Calcium 9.2 mg/dl (8.4-10.2); Carbon Dioxide 15 mmol/L (22-30); Chloride 105 mmol/L (98-107); Estimated Creatinine Clearance 73 ml/min; Glucose 64 mg/dl (70-99); Sodium 141 mmol/L (135-145); Total Bilirubin 1.2 mg/dl (0.2-1.3); Total Protein 5.9 g/dl (6.3-8.2); eGFR > 60.00
[2024-05-14] MEDS: NON-FORMULARY ITEM 1 MCG INH (07:26)
--- NOTE | 2024-05-14 07:33 | W.PN.HOSP.TC ---
Today's Communication/Plan
-
see bold
Assessment / Plan
Assessment / Plan
SBO -prior history of SBO in 2009 requiring lysis of adhesions. MRE shows 3 cm obstructing stricture at the proximal jejunum with circumferential soft tissue thickening/enhancement. Continue n.p.o., IV fluids, f/u rec from surg
ADAM - due to volume depletion. ADAM resolved with IV fluids.
Metabolic acidosis -change normal saline back to sodium bicarb IV fluids
Hypokalemia -repleted and resolved, mag normal
Grade A esophagitis/gastritis -noted on EGD, 05/10. Continue Protonix.
Mild intermittent asthma -stable.
DVT prophylaxis�subcu Lovenox
Full code
Total time spent to see the patient on the floor, examine the patient, review data and lab results, discuss treatment plan with patient, nursing staff around 38 minutes.
Physical Exam
General: Appears to not feel well, no acute distress
HEENT: Normocephalic, Atraumatic, EOMI, MMM
Respiratory: Clear to Auscultation bilaterally
Cardiac: Normal S1/S2, Regular Rate and Rhythm
GI: Soft, Nontender, Nondistended, Normal Bowel Sounds
Extremities: No Clubbing, Cyanosis, or Edema
Neuro: Nonfocal/Grossly Intact
Psych: Calm, Cooperative
Derm: No Visible lesions
Anticipated Discharge: 24 - 48 hours
Subjective/Interval History
-
Date of Service: May 14, 2024
Patient reports having multiple episodes of emesis overnight, last one 4 AM, bile. She passed gas yesterday. No bowel movement. No fever.
Objective Data
-
Labs:
Laboratory Results
05/14/24
04:21
WBC 4.1 L
Hgb 10.7 L
Hct 31.9 L
Plt Count 226
Sodium 141
Potassium 4.0
Chloride 105
Carbon Dioxide 15 L
BUN 5 L
Creatinine 0.8
Glucose 64 L
Calcium 9.2
Total Bilirubin 1.2
AST 35
ALT 24
Alkaline Phosphatase 68
Vital Signs:
Vital Signs
Temp Pulse Resp BP Pulse Ox
97.8 F 99 14 110/63 99
05/13/24 23:18 05/14/24 07:29 05/14/24 07:29 05/13/24 23:18 05/14/24 07:29
I&O
05/13/24 05/14/24 05/15/24
06:59 06:59 06:59
Intake Total 960 / 960 3220 / 3220
Balance 960 / 960 3220 / 3220
[2024-05-14 07:42] VITALS: BP 92/59
--- NOTE | 2024-05-14 08:37 | W.PN.GI.CBS2 ---
Today's Communication / Plan
-
MRE today
Assessment / Plan
-
48-year-old female with past medical history of asthma, fibroids, postoperative small bowel obstruction admitted with persistent N/V found to have a partial small bowel obstruction, with normal imaging 2 weeks ago.
Partial Small Bowel Obstruction--ddx: infectious vs. inflammatory/new Crohns dx vs. mass vs. intussusception given lack of findings of recent CT scan
-not seen on CT scan 2 weeks ago; repeat CT A/P (05/12) with partial SBO, transition point in prox jejunum associated with segmental thickening
-Abd Xray/obstruction series (05/13): nonspecific bowel gas pattern w/o signs of obstruction, no dilated loops of bowel seen. Oral contrast observed into the colon around mid descending colon. Air and stool seen scattered throughout colon and rectum.
-s/p EGD on 05/10, bilious fluid/food residue in stomach
-recommend NPO-- failed trial of clears yesterday; need to consider placement of NGT pending MRE
-general surgery following
-MRE today
-records from [facility]
-CRP 13.90
-check fecal calprotectin (once patient has a BM)
-GI will continue to follow
Discussed plan at length with patient and at bedside. All questions answered.
Subjective
Subjective
Date of Service: May 14, 2024
Patient with ongoing nausea and bilious emesis overnight. She had some broth yesterday, then multiple episodes of bilious emesis. No abdominal pain. Passed a small amount of flatus yesterday, no BM yet. Obstruction series w/o evidence of
obstruction.
Objective
Data Reviewed
Laboratory Data:
Laboratory Results
05/14/24 04:21
05/14/24 04:21
Laboratory Results
Magnesium 1.8 mg/dl (1.6-2.3) 05/13/24 07:31
Total Bilirubin 1.2 mg/dl (0.2-1.3) 05/14/24 04:21
AST 35 U/L (14-36) 05/14/24 04:21
ALT 24 U/L (0-35) 05/14/24 04:21
Alkaline Phosphatase 68 U/L (38-126) 05/14/24 04:21
Lipase 154 U/L (23-300) 05/11/24 12:28
Vital Signs and I&O:
Vital Signs
Temp Pulse Resp BP Pulse Ox
98.4 F 101 18 92/59 98
05/14/24 07:42 05/14/24 07:42 05/14/24 07:42 05/14/24 07:42 05/14/24 07:42
I&O
05/13/24 05/14/24 05/15/24
06:59 06:59 06:59
Intake Total 960 / 960 3220 / 3220
Balance 960 / 960 3220 / 3220
Physical Exam
Physical Exam
General: Well Developed, Well Nourished, No Apparent Distress but slightly anxious
GI: Soft, Non Tender, Non Distended and Normal Bowel Sounds
[2024-05-14] MEDS: NSS (PRESERVATIVE FREE) 10 ML IV (09:05)
[2024-05-14] MEDS: PROTONIX IV 40 MG IV (09:06)
--- NOTE | 2024-05-14 09:32 | W.PN.CRS1 ---
Today's Communication / Plan
-
As below
Assessment/Plan
-
48-year-old male with PMH of asthma, fibroids, Chiari malformation (asymptomatic, incidental finding), who underwent myomectomy in 2009 which was complicated by a prolonged ileus/obstruction and underwent ex lap with lysis of adhesions 17 days
later, who presents for concern of worsening nausea and vomiting associated with abdominal pain. Initially, she was worked up with a CT on 04/20 which showed findings related to the gallbladder, no other issues. An ultrasound was done on 04/25 which
showed a normal gallbladder without gallstones or evidence of cholecystitis. She then underwent an EGD on 05/[address] Morin, which showed esophagitis and gastritis, biopsies were sent. Over the last 3 days, she had worsening of her abdominal
pain associated with worsening nausea and bilious vomiting. She states that this is similar to her prior SBO, but this time she continues to pass flatus. In the ED, a HIDA was done, which was negative. An AXR was done showing signs concerning for
an obstruction. General surgery was consulted for further management
AFVSS
WBC 4.1, Hb 10.7, Cr 0.8
- CTAP shows partial SBO with transition point in the proximal jejenum associated with segmental thickening
�Failed trial of clears overnight; low threshold for NGT; continue Zofran as needed
-Upon review on recent CT with Dr. Javier, there may have been some associated thickening on CTAP 3 weeks ago, but difficult to be sure as there is no oral contrast in that area
�Differential for small bowel thickening is broad, including infectious, inflammatory (Crohn's/stricture), ulcer, mass (benign versus malignant)
�Follow-up MRE and attempt to clarify diagnosis
�Follow-up repeat AXR
�Follow-up fecal calprotectin, CRP�13.9, follow-up prealbumin
�Appreciate GI
� Make n.p.o., continue IVF
� No antibiotics currently indicated from surgical standpoint
� Appreciate hospitalist
Subjective Data
Subjective Data
Date of Service: May 14, 2024
Early this morning, patient had nausea and vomited twice. Currently, she still feels a little nauseous, but better than before.
Denies any significant pain.
Passed flatus last night, no BMs yet. Voiding.
Objective Data
-
Vital Signs
Temp Pulse Resp BP Pulse Ox
98.4 F 101 18 92/59 98
05/14/24 07:42 05/14/24 07:42 05/14/24 07:42 05/14/24 07:42 05/14/24 07:42
Intake & Output
05/13/24 05/14/24 05/15/24
06:59 06:59 06:59
Intake Total 960 / 960 3220 / 3220
Balance 960 / 960 3220 / 3220
Intake:
Oral fluids 1260 / 1260
IV fluids (Total) 960 / 960 1960 / 1960
IV piggybacks 0 / 0
TPN/PPN 0 / 0
Lipids 0 / 0
Blood products 0 / 0
Other:
Number of approximated SMALL 3
amounts of urine
Number of approximated MODERATE 2 2
amounts of urine
Number of immeasurable emeses? 2
Lab Results
05/14/24 04:21
05/14/24 04:21
Physical Exam
-
General: No Acute Distress and AOx3
HEENT: Grossly Normal
Abdomen: Soft, Non Distended, Non Tender, No Guarding and No Rebound
Skin: Warm and Dry
[2024-05-14 12:16] LABS: Prealbumin (Transthyretin) 9.7 mg/dl (17.6-36.0)
[2024-05-14] MEDS: SODIUM BICARBONATE 1075 MEQ IV (13:02)
--- NOTE | 2024-05-14 13:34 | CM ---
Reviewed chart, patient still requiring acute level of care/ Workup in progress. Functionally at baseline and will most likely be able to return home when stable medically.
Plan: Case management will continue to follow and assist with discharge planning. Home when medically cleared for discharge.
[2024-05-14 15:30] VITALS: BP 108/68
--- NOTE | 2024-05-14 17:23 | PN.CDI ---
CDI
- -
CDI:
Physician Documentation Request
Admit Date: 05/11/24 15:56
Dear Doctor Do,
05/12 note states 'Pt meets criteria for severe protein calorie malnutrition of acute illness with > 2% wt loss x 1 week, prolonged poor intake prior to hospital admits < 50% est needs > 5 days. '
Based on the above information and your assessment, which of the following most accurately represents the patient's nutritional status?
Malnutrition (specify if mild, moderate or severe)
No nutritional deficiency
Other (please specify)
Amelia Criteria ([facility]ist 2017)
2 or more criteria must be present for either
non severe or severe malnutrition
Note that the criteria differs related to the
presence of an acute or chronic illness
Acute Illness Chronic Illness
Energy Intake Non Severe: <75% for >7 days Non Severe: <75% for >1 month
Severe: <50% for >5 days Severe: <75% for >1 month
Weight Loss Non Severe: 1-2% over 1 week Non Severe: 5% over 1 month
5% over 1 month 7.5% over 3 months
7.5% over 3 months 10% over 6 months
1 year N/A 20% over 1 year
Severe: >2% over 1 week Severe: >5% over 1 month
>5% over 1 month >7.5% over 3 months
>7.5% over 3 months >10% over 6 months
1 year N/A >20% over 1 year
Body Fat Non Severe: Mild Decrease Non Severe: Mild Loss
Severe: Moderate Decrease Severe: Severe Loss
Muscle Mass Non Severe: Mild Decrease Non Severe: Mild Loss
Severe: Moderate Decrease Severe: Severe Loss
Fluid Accumulation Non Severe: Mild Accumulation Non Severe: Mild Accumulation
Severe: Moderate to severe Severe: Moderate to severe
accumulation accumulation
Reduced Dividing Machine Operator Strength Non Severe: N/A Non Severe: N/A
Severe: Measurably reduced Severe: Measurably reduced
Use of terms such as suspected, likely, concern for, or probable (associated with a specific diagnosis that is being evaluated, monitored, or treated as if it exists) are acceptable and can be coded in the inpatient setting, when documented at the
time of discharge.
Thank you,
Kamryn Rosenberg RN, BSN
CDI Specialist
tiger text
Please use your independent medical judgment in providing your response.
[2024-05-14] MEDS: LOVENOX 40 MG SC (17:41)
--- NOTE | 2024-05-14 20:17 | W.PN.UPDATE ---
Update Note
Progress Note Update
Had lengthy discussion with patient, patient's spouse and patient's father; patient reports having had another episode of vomiting earlier today with no real flatus or BMs throughout the day; I explained the results of the MRI, specifically that
there is a stricture in the proximal jejunum that is suspicious for a small bowel mass and it is causing an upstream blockage; possibilities of the etiology of this mass include malignancy and benign causes like stricture and inflammation; I
discussed this with Dr. Gayle who feels that this is less likely related to an inflammatory stricture and therefore less likely to respond with steroids; because the patient has not improved with nonoperative measures, I recommend moving forward
with surgery to resect that area; I explained the planned operative approach includes robotic assisted surgery in order to lyse the adhesions and potentially perform a small bowel resection; minimally invasive surgery is associated with less pain,
quicker recovery, less adhesions, but does have a risk of missed bowel injuries; I explained that my priority is to do this surgery safely and therefore it may require an open incision; other risk include, but not limited to, anastomotic failure and
recurrent bowel obstructions; I recommend placing the NG tube tonight to help decompress the upper GI tract and remain n.p.o. with IVF; plan for surgery tomorrow late morning; within the next 1 to 2 days, I also recommend getting a PICC and starting
TPN; all questions were answered and the patient and patient's family were appreciative
[2024-05-14] MEDS: HURRICAINE SPRAY 1 APPLIC TOPICAL (22:20)
--- NOTE | 2024-05-14 22:52 | PTCARENOTE ---
14 F Cook Sump NGT placed to L nare without difficulty. Placement verified via auscultation. Pt vomited moderate amount of bilious emesis and NGT immediately drained 550 mL bilious drainage. Pt verbalizes throat discomfort and requesting
analgesic (hurricane spray used prior to insertion per MD order). [employer] covering house contacted - electronic orders received for PRN chloraseptic spray. IVF clarified with surgeon. Plan of care discussed, ongoing education.
[2024-05-14 23:06] VITALS: BP 109/70
[2024-05-14] MEDS: CHLORASEPTIC/SORE THROAT SPRAY 1 SPRAY PO (23:10)
[2024-05-15] VITALS (12 sets, daily range): BP systolic 102–142; BP diastolic 61–74
[2024-05-15] MEDS: SODIUM BICARBONATE 1075 MEQ IV (00:27)
--- NOTE | 2024-05-15 00:39 | PTCARENOTE ---
Pt vomited around NGT moderate amount of bilious emesis. Denies nausea, reports 'the tube isn't in right'. Placement verified via auscultation w/another RN, + placement verified. Pt is anxious about NGT and surgery tomorrow. Suspect pt has
sensitive gag reflex. Emotional support provided, offered to get an order for something to help relax, pt declined, stating 'I will just suffer'. at bedside. Plan of care ongoing.
[2024-05-15] MEDS: OFIRMEV 100 IV (05:45)
[2024-05-15 06:21] LABS: Hematocrit 36.5 % (37.0-47.0); Hemoglobin 12.1 g/dL (12.0-16.0); Mean Corp Hgb Conc. 33.2 g/dL (33.0-37.0); Mean Corpuscular Hgb 32.4 pg (27.0-31.0); Mean Corpuscular Volume 97.9 fL (81.0-99.0); Mean Platelet Volume 11.3 fL (7.4-10.4); Platelet Count 197 10^3/uL (130-400); Red Blood Cell Count 3.73 10^6/uL (4.20-5.40); Red Cell Dist. Width 11.2 % (11.5-14.5); White Blood Cell Count 5.9 10^3/uL (4.8-10.8)
[2024-05-15 06:26] LABS: INR 1.13; PT 14.3 Sec (11.4-14.6)
[2024-05-15 06:27] LABS: APTT 23.7 Sec (23.4-35.0)
[2024-05-15] MEDS: HEPARIN 5000 UNITS SC (06:28)
[2024-05-15 07:03] LABS: Blood Urea Nitrogen 6 mg/dl (7-17); Calcium 9.6 mg/dl (8.4-10.2); Carbon Dioxide 8 mmol/L (22-30); Chloride 107 mmol/L (98-107); Estimated Creatinine Clearance 73 ml/min; Glucose 73 mg/dl (70-99); Magnesium 1.5 mg/dl (1.6-2.3); Phosphorus 2.6 mg/dl (2.5-4.5); Potassium 3.6 mmol/L (3.5-5.1); Sodium 139 mmol/L (135-145); eGFR > 60.00
--- NOTE | 2024-05-15 07:32 | PTCARENOTE ---
Critical lab communicated to attending via TT.
[2024-05-15] MEDS: NON-FORMULARY ITEM 1 MCG INH (07:51)
--- NOTE | 2024-05-15 08:21 | W.PN.GI.CBS2 ---
Today's Communication / Plan
-
NGT for decompression, NPO for OR today.
Assessment / Plan
-
48-year-old female with past medical history of asthma, fibroids, postoperative small bowel obstruction admitted with persistent N/V found to have a partial small bowel obstruction, with normal imaging 2 weeks ago.
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
-MRE (05/14): Short segment severe narrowing of the proximal jejunum measuring 3 cm in length with circumferential soft tissue thickening and enhancement. Soft tissue at this level measures approximately 3.0 x 2.8 x 3.1 cm. Upstream jejunal dilatation
measuring 4 cm in caliber and at least moderate dilatation of the stomach, compatible with a small bowel obstruction.
-not seen on CT scan 2 weeks ago; repeat CT A/P (05/12) with partial SBO, transition point in prox jejunum associated with segmental thickening
-Abd Xray/obstruction series (05/13): nonspecific bowel gas pattern w/o signs of obstruction, no dilated loops of bowel seen. Oral contrast observed into the colon around mid descending colon. Air and stool seen scattered throughout colon and rectum.
-s/p EGD on 05/10, bilious fluid/food residue in stomach
-NGT for decompression
-NPO for OR today
-CRP 13.90
-check fecal calprotectin (once patient has a BM)
-GI will continue to follow
Subjective
Subjective
Date of Service: May 15, 2024
Patient seen in follow-up. NGT placed yesterday with large bilious output. OR today for small bowel resection with Dr. Vázquez.
Objective
Data Reviewed
Laboratory Data:
Laboratory Results
05/15/24 05:52
05/15/24 05:52
Laboratory Results
PT 14.3 Sec (11.4-14.6) 05/15/24 05:52
INR 1.13 05/15/24 05:52
APTT 23.7 Sec (23.4-35.0) 05/15/24 05:52
Phosphorus 2.6 mg/dl (2.5-4.5) 05/15/24 05:52
Magnesium 1.5 mg/dl (1.6-2.3) L 05/15/24 05:52
Total Bilirubin 1.2 mg/dl (0.2-1.3) 05/14/24 04:21
AST 35 U/L (14-36) 05/14/24 04:21
ALT 24 U/L (0-35) 05/14/24 04:21
Alkaline Phosphatase 68 U/L (38-126) 05/14/24 04:21
Lipase 154 U/L (23-300) 05/11/24 12:28
Vital Signs and I&O:
Vital Signs
Temp Pulse Resp BP Pulse Ox
98.1 F 90 16 109/70 100
05/14/24 23:06 05/15/24 07:52 05/15/24 07:52 05/14/24 23:06 05/15/24 07:52
I&O
05/14/24 05/15/24 05/16/24
06:59 06:59 06:59
Intake Total 3220 / 3220 2770 / 2770
Output Total 60 / 60
Balance 3220 / 3220 2710 / 2710
Physical Exam
Physical Exam
General: Well Developed, Well Nourished,
HEENT: +NGT, minimal bilious output
GI: Soft, Non Tender, Non Distended and Normal Bowel Sounds
[2024-05-15] MEDS: SODIUM BICARBONATE 1150 MEQ IV (09:36)
[2024-05-15] MEDS: MAGNESIUM SULFATE 102 GRAMS IV (09:36)
[2024-05-15] MEDS: PROTONIX IV 40 MG IV (09:37)
[2024-05-15] MEDS: NSS (PRESERVATIVE FREE) 10 ML IV (09:37)
--- NOTE | 2024-05-15 12:56 | W.PN.HOSP.TC ---
Today's Communication/Plan
-
For OR today
Assessment / Plan
Assessment / Plan
SBO -prior history of SBO in 2009 requiring lysis of adhesions. MRE shows 3 cm obstructing stricture at the proximal jejunum with circumferential soft tissue thickening/enhancement. Continue NGT, n.p.o., IV fluids, for OR today
ADAM - due to volume depletion. ADAM resolved with IV fluids.
Metabolic acidosis -changed normal saline back to sodium bicarb IV fluids
Hypokalemia -repleted and resolved, mag normal
Grade A esophagitis/gastritis -noted on EGD, 05/10. Continue Protonix.
Severe protein calorie malnutrition of acute illness - encourage oral intake when able
Mild intermittent asthma -stable.
DVT prophylaxis�subcu Lovenox
Full code
Updated at bedside 05/15
Total time spent to see the patient on the floor, examine the patient, review data and lab results, discuss treatment plan with patient, nursing staff around 43 minutes.
Physical Exam
General: Appears to not feel well, no acute distress
HEENT: Normocephalic, Atraumatic, EOMI, MMM
Respiratory: Clear to Auscultation bilaterally
Cardiac: Normal S1/S2, Regular Rate and Rhythm
GI: Soft, Nontender, Nondistended, Normal Bowel Sounds
Extremities: No Clubbing, Cyanosis, or Edema
Neuro: Nonfocal/Grossly Intact
Psych: Calm, Cooperative
Derm: No Visible lesions
Anticipated Discharge: > 48 hours
Subjective/Interval History
-
Date of Service: May 14, 2024
Patient is passing gas, no bowel movement. Continues to be nauseous. Has NG tube. No fever. No abdominal pain.
Objective Data
-
Vital Signs:
Vital Signs
Temp Pulse Resp BP Pulse Ox
98.2 F 89 17 108/68 100
05/14/24 15:30 05/14/24 15:30 05/14/24 15:30 05/14/24 15:30 05/14/24 15:30
I&O
05/13/24 05/14/24 05/15/24
06:59 06:59 06:59
Intake Total 960 / 960 3220 / 3220 395 / 395
Balance 960 / 960 3220 / 3220 395 / 395
--- NOTE | 2024-05-15 16:12 | W.IMMPOSTOP ---
Surgical Immed Post Op Note
-
Primary Surgeon: Ervin Vázquez MD
Assisting Surgeon: CHAUNCEY Gonzalez
Pre-op Diagnosis: Small bowel obstruction, proximal jejunal mass
Post-op Diagnosis: Small bowel obstruction, proximal jejunal mass
Procedure Performed: Robotic lysis of adhesions, small bowel resection; tap block performed preoperatively by anesthesia
Anesthesia Type: General
Specimen / Cultures: Proximal jejunal small bowel mass
Estimated Blood Loss: 25 mL
IVF: 3.0L
UOP: 400mL
Complications: None
Operative Findings: Entered with Veress technique and Optiview in the right mid abdomen; no injuries from Veress needle or initial trocar placement; identified dense adhesions to the lower midline and one loop of small bowel; this was taken down
meticulously with sharp and blunt dissection; there appeared to be a Prolene stitch from a previous surgery that was adherent to the wall of the small bowel; after the loop was down, there were no serosal injuries; it did not appear to be eroded
through the wall; however, I performed an imbricating repair with three 3-0 Vicryl's in a transverse orientation to make sure any potential defect was closed; retracted the omentum over the transverse colon and identified the proximal jejunal mass;
proximal to the mass, there was severe dilation up to about 6 cm in diameter and beyond the mass the diameter of the small bowel was normal; no concerns for ischemia or perforation; placed a 12 mm suprapubic port and a right lateral assist port;
created a hole in the mesentery 5 cm distally and divided the bowel with a blue load at this point; created a hole 5 cm proximally at the mesenteric border and then serially divided the mesentery with the vessel sealer in a manner in order to take a
wedge of mesentery for lymph node biopsies; injected ICG and confirmed perfusion to my distal staple line and anticipated proximal staple line and both were well-perfused; divided the bowel with 2 fires of the blue load robotic stapler; the specimen
was placed temporarily in the pelvis; the 2 limbs of the divided bowel were lined up in a antiperistaltic [id number] fashion using 3-0 Vicryl's in the future crotch stitch was used to suspend the limbs of small bowel to the abdominal wall, about 8
cm away from the staple lines; created enterotomies and suctioned of the bilious effluent; there was minimal spillage of bile and the area was focally washed and aspirated; on first pass of the stapler with a white load, a serosal injury was made on
the proximal limb; this was repaired with 2 imbricating stitches of 3-0 Vicryl; enlarged the enterotomy and created the common channel with the white load of the 60 mm robotic stapler; the intraluminal staple line was intact without evidence of
bleeding; the common enterotomy was closed using a 2�0 V-Loc, starting at the mesenteric aspect and sewing it closed superiorly, then running it back inferiorly in a running Cannell fashion as a second later; this was continued down the mesentery to
close the mesenteric defect; placed the specimen in a 15 mm bag; created a 4 cm Pfannenstiel and extracted the specimen; closed in the usual fashion
--- NOTE | 2024-05-15 17:29 | OR.RPT ---
Operative Report
Operative Report
DATE OF OPERATION: 05/15/2024
SURGEON: Ervin Vázquez MD
PREOPERATIVE DIAGNOSIS: Small bowel obstruction, proximal jejunal mass
POSTOPERATIVE DIAGNOSIS: Small bowel obstruction, proximal jejunal mass
OPERATION: Robotic small bowel resection, lysis of adhesions, small bowel repair; TAP block by anesthesia preoperatively
ASSISTANTS:
1. CHAUNCEY Gonzalez
ANESTHESIA: General
ESTIMATED BLOOD LOSS: 25 mL
UOP: 400 mL
IVF: 3.0 L
FINDINGS:
1. Adherent loop of bowel to the lower midline abdominal wall, adherent to an exposed Prolene stitch from a prior surgery which may have started to erode through the bowel; lysed adhesions and repaired the bowel with imbricating 3-0 Vicryl's
2. Identified the intraluminal proximal jejunal mass, associated with severe distention of the proximal bowel up to 6 cm and decompressed small bowel distally
3. Divided the small bowel 5 cm proximally and distally to the mass and took a wedge of mesentery; performed an intracorporeal antiperistaltic [id number]-[id number] stapled anastomosis
SPECIMENS:
1. Proximal jejunal small bowel mass
DRAINS: None
COMPLICATIONS: No immediate complications.
INDICATIONS: The patient is a 48-year-old female who started having difficulty with nausea, vomiting and abdominal pain about 3 to 4 weeks prior to surgery. She had a CT scan at that time, which was concerning for an irritated gallbladder, but
unclear for cholecystitis. An ultrasound showed no evidence of cholecystitis. She underwent an EGD on 05/10/2024, which showed esophagitis and gastritis, no ulcer disease. She presented to the ED the following day with worsening nausea, vomiting
and abdominal pain. A repeat CT showed a small bowel obstruction at an area of thickening of the proximal jejunum. An MRE was done, showing a 3 cm stricture in the proximal jejunum, suspicious for a small bowel mass. A trial of clears was
attempted, but the patient had persistent vomiting. Therefore, I recommended moving forward with surgery to resect the area to clear her bowel obstruction as well as for pathologic diagnosis. The operation was discussed with the patient in detail,
including the risks, benefits and alternatives. Risks described included, but not limited to, bleeding, infection, anastomotic leak or stricture, injury to nearby organs, recurrent small bowel obstruction, incisional hernia, inadequate lymph node
sampling if cancer, prolonged ileus and anesthetic risks. This was discussed with the patient, patient's spouse and patient's father. The patient understood and agreed to proceed.
PROCEDURE IN DETAIL: The patient was taken to the operating room and placed on the operating table in supine position. Sequential compression devices were placed bilaterally. General anesthesia was then induced and the patient was intubated without
complication. The patient was then placed in supine position with the bilateral arms tucked. Gilbert catheter was placed with sterile technique. An NG tube had been placed preoperatively. Preoperative antibiotics were given. Anesthesia performed an
ultrasound-guided TAP block. The back was flexed a few degrees to improve range of mobility of robotic instruments. The abdomen was then prepped and draped in a sterile fashion. A marking pen was used to kuldip out the midline. A time-out was then
performed verifying the correct patient, procedure, operative site, positioning, and special equipment.
At Burnham's point, using an 11 blade scalpel, an stab incision was made. A Veress needle was used to obtain abdominal access. After 3 clicks, insufflation was initiated and the opening pressure was noted to be less than 8 mmHg. The abdomen was
insufflated to a pressure of 12, which the patient tolerated well. An 8 mm incision was then made in the right mid abdomen. Using a 5�0 laparoscopic camera, an 8 mm robotic port was then advanced under Optiview visualization, confirming no
intra-abdominal organ injury during placement. The laparoscope was then advanced and the abdomen was evaluated. No injury from initial Veress placement or port placement was noted. There was a loop of small bowel adherent to the midline just
inferior to the umbilicus. There were no other adhesions to the anterior abdominal wall. There were no concerning liver lesions or peritoneal lesions evident. Under direct visualization, I placed a RUQ 8 mm port and right upper-suprapubic 8 mm
port, taking care to avoid injury to the epigastric artery. The robot was then docked from the patient's left. Instruments used were the fenestrated bipolar and the robotic scissors. I started by taking down the densely adherent loop of small
bowel to the midline anterior abdominal wall. This was done meticulously with sharp dissection and a small amount of blunt dissection. The majority of the adhesions were filmy, but there was an area where they were dense and part of the peritoneum
was taken down with it to avoid bowel injury. I encountered Prolene suture material from a previous surgery that was adherent directly to the bowel wall. The Prolene stitch was cut and the bowel was now free. I grabbed to the tip of the Prolene
that was stuck on the bowel and removed it from the bowel. No succus was noted emanating from the site, but it was difficult to be sure that the Prolene stitch had not eroded completely through the wall of the bowel. Therefore, I imbricated the
area using three 3-0 Vicryl's. The bowel appeared healthy and well-perfused after the repair.
I directed my attention towards the left upper quadrant. I retracted the omentum above the transverse colon. I immediately noted a small bowel mass that was intraluminal, but demonstrated indentation of the wall of the small bowel. There was no
invasion beyond the bowel wall or to other structures. Proximal to this, the bowel was dilated to at least 6 cm. Distal to this mass, the bowel was decompressed. No bowel appeared ischemic and there was no concern for any perforations. There was
sufficient proximal bowel to position it in a way that would allow for a small bowel resection robotically. Therefore, Dustin placed a right lateral assist port under direct visualization. As the peritoneum appeared thickened in the midline,
leading toward the bladder, I was unsure if there was any concern for a urachal remnant. Therefore, I asked the nurse manufacturing quality manager to backfill the bladder with 100 mL of saline in order to delineate the bladder anatomy. As the bladder filled, it was
clear that there was no urachal remnant and my intended suprapubic port site was free from the bladder. Therefore, Dustin placed a 12 mm midline suprapubic port under direct visualization about 2 cm above the pubic symphysis.
I grasped and elevated the proximal small bowel. I measured 5 cm distal to the small bowel mass and created a hole in the mesentery with the vessel sealer. I divided the small bowel with the blue load of the robotic 60 mm stapler. Using the
vessel sealer, I divided the mesentery a few centimeters towards the base of the mesentery. I then turned to the proximal bowel. I measured 5 cm proximal to the small bowel mass and created a hole in the mesentery with the vessel sealer. I
serially divided the mesentery towards my distal transection point in a matter to create a wedge of mesentery to obtain an adequate lymphadenectomy if this mass was an adenocarcinoma. After the mesentery was ligated, anesthesia injected ICG. On
firefly, there was good perfusion of my distal staple line. On the proximal side, I stapled across a portion that was well-perfused on firefly using 2 blue loads of the robotic 60 mm stapler. I placed the specimen in the pelvis. I repositioned the
bowel in order to identify the best orientation for an anastomosis. It appeared that an antecolic [id number] stapled anastomosis would be ideal. I measured about 8 cm from the staple line of each limb and placed a 2-0 Vicryl crotch stitch. I
used the excess stitch to affix this to the abdominal wall in order to provide a pivot point of the 2 limbs of my future anastomosis. I placed three 3-0 Vicryl's to align the wilson of the 2 limbs of the small bowel in order to ensure stapling the
antimesenteric borders of each limb. I placed a handle stitch at the midpoint of each staple line with a large air knot. I made enterotomies about 2 cm from each staple line on the antimesenteric border and suctioned any succus that appeared.
There was some spillage of succus from the proximal limb, but this was irrigated and suctioned away. I introduced the robotic stapler with a white load and attempted to place this in the proximal limb enterotomy. However, I created a small serosal
injury on the proximal limb because the enterotomy was still too small. I oversewed this serosal injury with 2-0 Vicryl's in an imbricating fashion. I enlarged to the enterotomy on the proximal limb and then easily introduced the robotic stapler.
After firing the stapler and creating the common channel, I visualized the intraluminal staple line and it appeared intact and hemostatic. I closed the common enterotomy with a 2�0 V-Loc stitch in a running fashion, first starting from the
mesenteric border and sewing superiorly for the first layer. Then, I ran the same stitch back to the mesenteric border in a running [place] fashion for the second layer, imbricating the first layer. I continued running the stitch to reapproximate
the edges of the mesenteric defect. The staple lines and mesenteric suture line were hemostatic. The anastomosis appeared patent. As the patient did not have a significant amount of output from the NGT during the case and I could see that the
stomach was not fully decompressed, I asked anesthesia to replace the NGT in case it was clogged. Upon placing the new NGT, there was 100-200mL of gastric output noted.
I placed the specimen in a 15 mm retrieval bag through the suprapubic port and clamped the string with a chrissy. I removed the robotic instruments and undocked the robot. I removed the suprapubic port and extended the incision to 4 cm total to
create a Pfannenstiel extraction site. This was taken down to the anterior fascia and the anterior fascia was divided, taking care to avoid injury to the rectus muscle. I was able to remove the specimen at this point without stretching the
peritoneum significantly. I closed the Pfannenstiel incision in layers. I closed the peritoneum using a running 0 Vicryl. I irrigated the wounds and closed the anterior fascia with a 0 stratafix in a running fashion. The skin was closed with 4-0
Monocryl's in a running subcuticular fashion and dressed with Dermabond.
At this point, the procedure was complete. The patient was awoken and extubated without complication. All needle, sponge and instrument counts were reported as correct. The patient tolerated the procedure well and was transferred to the recovery
room in stable condition with the nasogastric tube in place.
DICTATED BY: Ervin Vázquez MD
--- NOTE | 2024-05-15 17:46 | PTCARENOTE ---
Patient transferred to [address] [place] [address] post robotic assisted small bowel resection and lysis of adhesions.The patient is drowsy but arousable.Vital signs are stable.All incisions are clean and dry without drainage.The patient is in her bed with the call
hernandez in reach.Her is coming to be with her.
[2024-05-16] MEDS: CHLORASEPTIC/SORE THROAT SPRAY 1 SPRAY PO ×2 (00:07→20:30)
[2024-05-16 03:10] VITALS: BP 114/64
[2024-05-16 03:36] LABS: Hematocrit 32.7 % (37.0-47.0); Hemoglobin 11.3 g/dL (12.0-16.0); Mean Corp Hgb Conc. 34.6 g/dL (33.0-37.0); Mean Corpuscular Hgb 32.8 pg (27.0-31.0); Mean Corpuscular Volume 94.8 fL (81.0-99.0); Mean Platelet Volume 10.7 fL (7.4-10.4); Platelet Count 204 10^3/uL (130-400); Red Blood Cell Count 3.45 10^6/uL (4.20-5.40); Red Cell Dist. Width 11.4 % (11.5-14.5)
[2024-05-16] MEDS: DILAUDID 0.25 MG IV ×2 (03:37→07:58)
[2024-05-16 03:57] LABS: Blood Urea Nitrogen 6 mg/dl (7-17); Calcium 8.5 mg/dl (8.4-10.2); Carbon Dioxide 15 mmol/L (22-30); Chloride 104 mmol/L (98-107); Estimated Creatinine Clearance 98 ml/min; Glucose 197 mg/dl (70-99); Magnesium 1.9 mg/dl (1.6-2.3); Phosphorus 2.3 mg/dl (2.5-4.5); Sodium 136 mmol/L (135-145); eGFR > 60.00
[2024-05-16] MEDS: SODIUM BICARBONATE 1150 MEQ IV ×2 (05:39→19:26)
[2024-05-16 06:00] VITALS: BMI 22.2
[2024-05-16 07:20] VITALS: BP 120/62
[2024-05-16] MEDS: NON-FORMULARY ITEM 1 MCG INH (07:27)
[2024-05-16] MEDS: NSS (PRESERVATIVE FREE) 10 ML IV (07:58)
[2024-05-16] MEDS: PROTONIX IV 40 MG IV (07:58)
--- NOTE | 2024-05-16 08:31 | W.PN.HOSP.TC ---
Today's Communication/Plan
-
see bold
Assessment / Plan
Assessment / Plan
SBO
Jejunal mass
-Prior history of SBO in 2009 requiring lysis of adhesions. 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
-Appreciate colorectal surgery input, status post small bowel resection 05/15, continue n.p.o., IV fluids, NGT, IV Zosyn for 4 days
ADAM - due to volume depletion. ADAM resolved with IV fluids.
Metabolic acidosis -continue sodium bicarb IV fluids
Hypokalemia -repleted and resolved, mag normal
Grade A esophagitis/gastritis -noted on EGD, 05/10. Continue Protonix.
Severe protein calorie malnutrition of acute illness - encourage oral intake when able
Mild intermittent asthma -stable.
DVT prophylaxis�subcu Lovenox
Full code
Updated at bedside 05/15, 05/16
Total time spent to see the patient on the floor, examine the patient, review data and lab results, discuss treatment plan with patient, nursing staff around 48 minutes.
Physical Exam
General: Appears to not feel well, no acute distress
HEENT: Normocephalic, Atraumatic, EOMI, MMM
Respiratory: Clear to Auscultation bilaterally
Cardiac: Normal S1/S2, Regular Rate and Rhythm
GI: Soft, appropriately tender, nondistended, incisions clean/dry/intact
Extremities: No Clubbing, Cyanosis, or Edema
Neuro: Nonfocal/Grossly Intact
Psych: Calm, Cooperative
Derm: No Visible lesions
Anticipated Discharge: > 48 hours
Subjective/Interval History
-
Date of Service: May 16, 2024
Patient reports her abdominal pain is 2 out of 10 in intensity after medications. It was 8. No fever, no nausea. No gas, no bowel movement.
Objective Data
-
Labs:
Laboratory Results
05/16/24
03:25
WBC 15.0 H
Hgb 11.3 L
Hct 32.7 L
Plt Count 204
Sodium 136
Potassium 4.0
Chloride 104
Carbon Dioxide 15 L
BUN 6 L
Creatinine 0.6
Glucose 197 H
Calcium 8.5
Vital Signs:
Vital Signs
Temp Pulse Resp BP Pulse Ox
97.6 F 105 16 120/62 100
05/16/24 07:20 05/16/24 07:29 05/16/24 07:29 05/16/24 07:20 05/16/24 07:29
I&O
05/15/24 05/16/24 05/17/24
06:59 06:59 06:59
Intake Total 2770 / 2770 1050 / 1050
Output Total 60 / 60 1800 / 1800
Balance 2710 / 2710 -750 / -750
--- NOTE | 2024-05-16 08:52 | W.PN.CRS1 ---
Today's Communication / Plan
-
As below
Assessment/Plan
-
48-year-old male with PMH of asthma, fibroids, Chiari malformation (asymptomatic, incidental finding), who underwent myomectomy in 2009 which was complicated by a prolonged ileus/obstruction and underwent ex lap with lysis of adhesions 17 days
later, who presents for concern of worsening nausea and vomiting associated with abdominal pain. Initially, she was worked up with a CT on 04/20 which showed findings related to the gallbladder, no other issues. An ultrasound was done on 04/25 which
showed a normal gallbladder without gallstones or evidence of cholecystitis. She then underwent an EGD on 05/[address] Morin, which showed esophagitis and gastritis, biopsies were sent. Over the last 3 days, she had worsening of her abdominal
pain associated with worsening nausea and bilious vomiting. She states that this is similar to her prior SBO, but this time she continues to pass flatus. In the ED, a HIDA was done, which was negative. An AXR was done showing signs concerning for
an obstruction. General surgery was consulted for further management
POD1 robotic SBR, TAP block by anesthesia; 3cm mass in the proximal jejunum causing a SBO
AFVSS
WBC 15.0 from 5.9, Hb 11.3 from 12.1 (from 10.7), Cr 0.6
-Continue n.p.o. with NGT; no p.o. meds; if no progress with diet by tomorrow, will start PICC/TPN
�Pain control with IV Toradol, Dilaudid as needed
� Hold on any bowel regimen
� Continue IV Zosyn for 4 days for minor enteric contents spillage
� DC Gilbert
� Okay for DVT PPx with Lovenox tonight
� Appreciate hospitalist
Subjective Data
Subjective Data
Date of Service: May 16, 2024
No overnight events.
Pain controlled.
Denies nausea/vomiting. Having less throat irritation with this new NG tube (it was exchanged in the operating room)
-flatus -BMs + Gilbert
Pt is not OOB.
Objective Data
-
Vital Signs
Temp Pulse Resp BP Pulse Ox
97.6 F 105 16 120/62 100
05/16/24 07:20 05/16/24 07:29 05/16/24 07:29 05/16/24 07:20 05/16/24 07:29
Intake & Output
05/15/24 05/16/24 05/17/24
06:59 06:59 06:59
Intake Total 2770 / 2770 1050 / 1050
Output Total 60 / 60 1800 / 1800
Balance 2710 / 2710 -750 / -750
Intake:
Oral fluids 0 / 0
IV fluids (Total) 1670 / 1670 960 / 960
IV piggybacks 200 / 200
Amount instilled into GI Tube ( 900 / 900 90 / 90
Total)
[place] Sump 900 / 900 90 / 90
Output:
Gastrointestinal tube output ( 60 / 60 400 / 400
Total)
[place] Sump 60 / 60 400 / 400
Urine, Gilbert 1400 / 1400
Other:
Number of approximated SMALL 3
amounts of urine
Number of approximated MODERATE 2
amounts of urine
Number of immeasurable emeses? 2
Lab Results
05/16/24 03:25
05/16/24 03:25
Physical Exam
-
General: No Acute Distress and AOx3
HEENT: Grossly Normal
Abdomen: Soft, Non Distended, Tender (Appropriately tender near incisions) and Other (NGT-400 mL of light bilious)
Wound: No Signs of Infection, Dressing in Place (Dermabond) and No Skin Erythema
[2024-05-16] MEDS: ZOSYN 50 IV ×3 (08:57→20:31)
[2024-05-16] MEDS: ANESTHETIC LOZENGE 1 LOZENGE PO ×2 (09:02→21:31)
--- NOTE | 2024-05-16 09:03 | W.PN.GI.CBS2 ---
Today's Communication / Plan
-
f/u path; initiate bowel regimen once cleared by surgery
Assessment / Plan
-
48-year-old female with past medical history of asthma, fibroids, postoperative small bowel obstruction admitted with persistent N/V found to have a partial small bowel obstruction, with normal imaging 2 weeks ago.
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
-s/p robotic SBR (05/15)- 3cm jejunal mass w/ SBO, path pending
-MRE (05/14): Short segment severe narrowing of the proximal jejunum measuring 3 cm in length with circumferential soft tissue thickening and enhancement. Soft tissue at this level measures approximately 3.0 x 2.8 x 3.1 cm. Upstream jejunal dilatation
measuring 4 cm in caliber and at least moderate dilatation of the stomach, compatible with a small bowel obstruction.
-not seen on CT scan 2 weeks ago; repeat CT A/P (05/12) with partial SBO, transition point in prox jejunum associated with segmental thickening
-Abd Xray/obstruction series (05/13): nonspecific bowel gas pattern w/o signs of obstruction, no dilated loops of bowel seen. Oral contrast observed into the colon around mid descending colon. Air and stool seen scattered throughout colon and rectum.
-s/p EGD on 05/10, bilious fluid/food residue in stomach
-NGT for decompression, NPO
-c/w zosyn
-pain control
-bowel regimen once cleared by surgery
-CRP 13.90
-GI will continue to follow
Subjective
Subjective
Date of Service: May 16, 2024
Patient seen in follow-up this morning, she underwent robotic small bowel resection, with findings of 3 cm mass in the proximal jejunum causing small bowel obstruction. She reports some pain overnight, otherwise NG tube in place with minimal
output. No nausea or vomiting. Denies any bowel movements or passing flatus.
Objective
Data Reviewed
Laboratory Data:
Laboratory Results
05/16/24 03:25
05/16/24 03:25
Laboratory Results
PT 14.3 Sec (11.4-14.6) 05/15/24 05:52
INR 1.13 05/15/24 05:52
APTT 23.7 Sec (23.4-35.0) 05/15/24 05:52
Phosphorus 2.3 mg/dl (2.5-4.5) L 05/16/24 03:25
Magnesium 1.9 mg/dl (1.6-2.3) 05/16/24 03:25
Total Bilirubin 1.2 mg/dl (0.2-1.3) 05/14/24 04:21
AST 35 U/L (14-36) 05/14/24 04:21
ALT 24 U/L (0-35) 05/14/24 04:21
Alkaline Phosphatase 68 U/L (38-126) 05/14/24 04:21
Lipase 154 U/L (23-300) 05/11/24 12:28
Vital Signs and I&O:
Vital Signs
Temp Pulse Resp BP Pulse Ox
97.6 F 105 16 120/62 100
05/16/24 07:20 05/16/24 07:29 05/16/24 07:29 05/16/24 07:20 05/16/24 07:29
I&O
05/15/24 05/16/24 05/17/24
06:59 06:59 06:59
Intake Total 2770 / 2770 1050 / 1050
Output Total 60 / 60 1800 / 1800
Balance 2710 / 2710 -750 / -750
Physical Exam
Physical Exam
General: Well Developed, Well Nourished,
HEENT: +NGT, minimal bilious output
GI: Soft,mildly tender near incision, no signs of infection
[2024-05-16 11:05] VITALS: BP 115/65
--- NOTE | 2024-05-16 13:00 | PTCARENOTE ---
Gilbert removed at 1100. Patient OOB with steady, slow gait. Patient ambulating i halls with spouse, voiding without difficulty. C/o throat pain, throat spray and lozenge given with moderate relief.
[2024-05-16] MEDS: TORADOL 15 MG IV ×2 (13:31→21:36)
--- NOTE | 2024-05-16 14:41 | CM ---
Case management following for discharge planning
Chart reviewed
POD #1 Robotic lysis of adhesions, small bowel resection
NPO, TPN, NGT for decompression
CM will cont to follow for d/c needs
Plan - anticipate home no needs vs with VN
[2024-05-16] MEDS: SODIUM PHOSPHATE 255 MEQ IV (14:55)
[2024-05-16 15:10] VITALS: BP 125/71
[2024-05-16] MEDS: LOVENOX 40 MG SC (17:42)
[2024-05-16 22:50] VITALS: BP 108/62
[2024-05-17] MEDS: ZOSYN 50 IV ×4 (01:32→19:51)
[2024-05-17] MEDS: CHLORASEPTIC/SORE THROAT SPRAY 1 SPRAY PO (01:40)
[2024-05-17 05:24] VITALS: BMI 22.2
[2024-05-17 06:22] LABS: Hematocrit 28.7 % (37.0-47.0); Hemoglobin 10.1 g/dL (12.0-16.0); Mean Corp Hgb Conc. 35.2 g/dL (33.0-37.0); Mean Corpuscular Hgb 32.7 pg (27.0-31.0); Mean Corpuscular Volume 92.9 fL (81.0-99.0); Mean Platelet Volume 11.4 fL (7.4-10.4); Platelet Count 187 10^3/uL (130-400); Red Blood Cell Count 3.09 10^6/uL (4.20-5.40); Red Cell Dist. Width 11.2 % (11.5-14.5); White Blood Cell Count 8.9 10^3/uL (4.8-10.8)
[2024-05-17 06:53] LABS: Blood Urea Nitrogen 11 mg/dl (7-17); Calcium 8.4 mg/dl (8.4-10.2); Carbon Dioxide 30 mmol/L (22-30); Chloride 98 mmol/L (98-107); Estimated Creatinine Clearance 98 ml/min; Glucose 91 mg/dl (70-99); Potassium 2.8 mmol/L (3.5-5.1); Sodium 140 mmol/L (135-145); eGFR > 60.00
[2024-05-17] MEDS: NON-FORMULARY ITEM 1 MCG INH (07:14)
[2024-05-17 07:21] VITALS: BP 113/66
--- NOTE | 2024-05-17 08:18 | W.PN.GI.CBS2 ---
Today's Communication / Plan
-
NGT, NPO. Bowel regimen and diet per surgery. GI will sign off, outpatient f/u. Please call with questions.
Assessment / Plan
-
48-year-old female with past medical history of asthma, fibroids, postoperative small bowel obstruction admitted with persistent N/V found to have a partial small bowel obstruction, with normal imaging 2 weeks ago.
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
-s/p robotic SBR (05/15)- 3cm jejunal mass w/ SBO, path pending
-MRE (05/14): Short segment severe narrowing of the proximal jejunum measuring 3 cm in length with circumferential soft tissue thickening and enhancement. Soft tissue at this level measures approximately 3.0 x 2.8 x 3.1 cm. Upstream jejunal dilatation
measuring 4 cm in caliber and at least moderate dilatation of the stomach, compatible with a small bowel obstruction.
-not seen on CT scan 2 weeks ago; repeat CT A/P (05/12) with partial SBO, transition point in prox jejunum associated with segmental thickening
-Abd Xray/obstruction series (05/13): nonspecific bowel gas pattern w/o signs of obstruction, no dilated loops of bowel seen. Oral contrast observed into the colon around mid descending colon. Air and stool seen scattered throughout colon and rectum.
-s/p EGD on 05/10, bilious fluid/food residue in stomach
-NGT for decompression, NPO
-c/w zosyn
-pain control
-bowel regimen once cleared by surgery
-CRP 13.90
-GI will sign off, will arrange for outpatient follow-up.
#CRC screening
-Overdue for CRC screening, will discuss with surgery when cleared to perform elective procedures
Subjective
Subjective
Date of Service: May 17, 2024
Patient seen in follow-up. Complains of throat discomfort, minimal abd pain. Passed small amount of flatus this AM.
Objective
Data Reviewed
Laboratory Data:
Laboratory Results
05/17/24 05:44
05/17/24 05:44
Laboratory Results
PT 14.3 Sec (11.4-14.6) 05/15/24 05:52
INR 1.13 05/15/24 05:52
APTT 23.7 Sec (23.4-35.0) 05/15/24 05:52
Phosphorus 2.0 mg/dl (2.5-4.5) L 05/17/24 05:44
Magnesium 2.0 mg/dl (1.6-2.3) 05/17/24 05:44
Total Bilirubin 1.2 mg/dl (0.2-1.3) 05/14/24 04:21
AST 35 U/L (14-36) 05/14/24 04:21
ALT 24 U/L (0-35) 05/14/24 04:21
Alkaline Phosphatase 68 U/L (38-126) 05/14/24 04:21
Lipase 154 U/L (23-300) 05/11/24 12:28
Vital Signs and I&O:
Vital Signs
Temp Pulse Resp BP Pulse Ox
98.8 F 101 15 113/66 100
05/17/24 07:21 05/17/24 07:21 05/17/24 07:21 05/17/24 07:21 05/17/24 07:21
I&O
05/16/24 05/17/24 05/18/24
06:59 06:59 06:59
Intake Total 1050 / 1050 640 / 640
Output Total 1800 / 1800 1600 / 1600
Balance -750 / -750 -960 / -960
Physical Exam
Physical Exam
General: Well Developed, Well Nourished,
HEENT: +NGT, minimal output
GI: Soft,mildly tender near incision, no signs of infection
[2024-05-17] MEDS: PROTONIX IV 40 MG IV (08:30)
[2024-05-17] MEDS: NSS (PRESERVATIVE FREE) 10 ML IV (08:30)
[2024-05-17] MEDS: ANESTHETIC LOZENGE 1 LOZENGE PO ×2 (08:31→18:29)
--- NOTE | 2024-05-17 09:20 | W.PN.HOSP.TC ---
Today's Communication/Plan
-
see bold
Assessment / Plan
Assessment / Plan
SBO
Jejunal mass
-Prior history of SBO in 2009 requiring lysis of adhesions. 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
-Appreciate colorectal surgery input, status post small bowel resection 05/15, continue n.p.o., IV fluids, NGT, IV Zosyn for 4 days
-Plan for midline, TPN as per colorectal surgery
ADAM - due to volume depletion. ADAM resolved with IV fluids.
Metabolic acidosis -continue sodium bicarb IV fluids
Hypokalemia -replete by IV
Hypophosphatemia�replete by IV
Grade A esophagitis/gastritis -noted on EGD, 05/10. Continue Protonix.
Severe protein calorie malnutrition of acute illness - encourage oral intake when able
Mild intermittent asthma -stable.
DVT prophylaxis�subcu Lovenox
Full code
Updated at bedside 05/15, 05/16, 05/17
Total time spent to see the patient on the floor, examine the patient, review data and lab results, discuss treatment plan with patient, nursing staff around 51 minutes.
Physical Exam
General: Appears to not feel well, no acute distress
HEENT: Normocephalic, Atraumatic, EOMI, MMM
Respiratory: Clear to Auscultation bilaterally
Cardiac: Normal S1/S2, Regular Rate and Rhythm
GI: Soft, appropriately tender, nondistended, incisions clean/dry/intact
Extremities: No Clubbing, Cyanosis, or Edema
Neuro: Nonfocal/Grossly Intact
Psych: Calm, Cooperative
Derm: No Visible lesions
Anticipated Discharge: > 48 hours
Subjective/Interval History
-
Date of Service: May 17, 2024
Patient complains of a sore throat. She also has abdominal pain. She is passing gas. No bowel movement. No fever.
Objective Data
-
Labs:
Laboratory Results
05/17/24
05:44
WBC 8.9
Hgb 10.1 L
Hct 28.7 L
Plt Count 187
Sodium 140
Potassium 2.8 L D
Chloride 98
Carbon Dioxide 30
BUN 11
Creatinine 0.6
Glucose 91
Calcium 8.4
Vital Signs:
Vital Signs
Temp Pulse Resp BP Pulse Ox
98.8 F 101 15 113/66 100
05/17/24 07:21 05/17/24 07:21 05/17/24 07:21 05/17/24 07:21 05/17/24 07:21
I&O
05/16/24 05/17/24 05/18/24
06:59 06:59 06:59
Intake Total 1050 / 1050 640 / 640
Output Total 1800 / 1800 1600 / 1600
Balance -750 / -750 -960 / -960
[2024-05-17] MEDS: SODIUM BICARBONATE 1075 MEQ IV (10:30)
[2024-05-17] MEDS: KCL 270 MEQ IV (10:30)
--- NOTE | 2024-05-17 10:40 | W.PN.CRS1 ---
Today's Communication / Plan
-
continue NGT
PICC/TPN
Assessment/Plan
-
48-year-old male with PMH of asthma, fibroids, Chiari malformation (asymptomatic, incidental finding), who underwent myomectomy in 2009 which was complicated by a prolonged ileus/obstruction and underwent ex lap with lysis of adhesions 17 days
later, who presents for concern of worsening nausea and vomiting associated with abdominal pain. Initially, she was worked up with a CT on 04/20 which showed findings related to the gallbladder, no other issues. An ultrasound was done on 04/25 which
showed a normal gallbladder without gallstones or evidence of cholecystitis. She then underwent an EGD on 05/[address] Morin, which showed esophagitis and gastritis, biopsies were sent. Over the last 3 days, she had worsening of her abdominal
pain associated with worsening nausea and bilious vomiting. She states that this is similar to her prior SBO, but this time she continues to pass flatus. In the ED, a HIDA was done, which was negative. An AXR was done showing signs concerning for
an obstruction. General surgery was consulted for further management
POD#2 robotic SBR, TAP block by anesthesia; 3cm mass in the proximal jejunum causing a SBO
AFVSS
WBC 8.9 from 15.0, Hb 10.1 from 11.3, Cr 0.6
-Continue n.p.o. with NGT; no p.o. meds, given lack of NPO, will start TPN and PICC today
�Pain control with IV Toradol, Dilaudid as needed
� Hold on any bowel regimen
� Continue IV Zosyn for 4 days for minor enteric contents spillage
� TEDS/SCDS, and Lovenox for DVT prophylaxis
� Appreciate hospitalist
Subjective Data
Procedure
05/15/2024- Robotic lysis of adhesions, small bowel resection; tap block performed preoperatively by anesthesia
Subjective Data
Date of Service: May 17, 2024
Patient states the NGT is bothering her. Her throat is very sore from it. Otherwise, she has mild abdominal pain. She has very minimal flatus.
Objective Data
-
Vital Signs
Temp Pulse Resp BP Pulse Ox
98.8 F 101 15 113/66 100
05/17/24 07:21 05/17/24 07:21 05/17/24 07:21 05/17/24 07:21 05/17/24 07:21
Intake & Output
05/16/24 05/17/24 05/18/24
06:59 06:59 06:59
Intake Total 1050 / 1050 640 / 640
Output Total 1800 / 1800 1600 / 1600
Balance -750 / -750 -960 / -960
Intake:
Oral fluids 120 / 120
IV fluids (Total) 960 / 960
IV piggybacks 350 / 350
Amount instilled into GI Tube ( 90 / 90 170 / 170
Total)
[place] Sump 90 / 90 170 / 170
Output:
Gastrointestinal tube output ( 400 / 400 950 / 950
Total)
[place] Sump 400 / 400 950 / 950
Urine, [place] 1400 / 1400 650 / 650
Other:
Number of approximated MODERATE 2
amounts of urine
Lab Results
05/17/24 05:44
Physical Exam
-
General: No Acute Distress and AOx3
Abdomen: Soft, Non Distended and Tender (mild by incisions)
Skin: Warm and Dry
Incision: Clear, Dry, Intact
[2024-05-17 11:17] LABS: ALT (SGPT) 19 U/L (0-35); AST (SGOT) 25 U/L (14-36); Albumin 3.1 g/dl (3.5-5.0); Alkaline Phosphatase 62 U/L (38-126); Blood Urea Nitrogen 10 mg/dl (7-17); Calcium 8.4 mg/dl (8.4-10.2); Carbon Dioxide 33 mmol/L (22-30); Chloride 97 mmol/L (98-107); Estimated Creatinine Clearance 98 ml/min; Glucose 99 mg/dl (70-99); Magnesium 1.9 mg/dl (1.6-2.3); Phosphorus 1.6 mg/dl (2.5-4.5); Potassium 2.5 mmol/L (3.5-5.1); Sodium 140 mmol/L (135-145); Total Bilirubin 1.8 mg/dl (0.2-1.3); Total Protein 5.3 g/dl (6.3-8.2); Triglycerides 117 mg/dl (10-149); eGFR > 60.00
[2024-05-17 15:14] VITALS: BP 130/71
[2024-05-17] MEDS: POTASSIUM PHOSPHATE 259.0909 MEQ IV (18:18)
[2024-05-17] MEDS: LOVENOX 40 MG SC (18:18)
[2024-05-17] MEDS: Parenteral Nutrition, Central 760 IV (20:53)
--- NOTE | 2024-05-17 21:30 | CM ---
pod#2 robotic sbr,npo with ngt,tpn,dc stewart,4 more days iv zosyn,minimal bowel activity,pain control with iv toradol and iv dilaudid,start lovenix for dvt ppx.plan:home with no needs vs vn.
[2024-05-17 22:49] VITALS: BP 120/71
[2024-05-17] MEDS: SODIUM BICARBONATE IV (23:54)
[2024-05-17 23:55] LABS: Glucose - Point of Care 121 mg/dl (70-99)
[2024-05-18] MEDS: ZOSYN 50 IV ×4 (01:41→20:50)
[2024-05-18] MEDS: SODIUM BICARBONATE 1075 MEQ IV (01:41)
[2024-05-18 06:38] LABS: Glucose - Point of Care 154 mg/dl (70-99)
[2024-05-18 07:15] VITALS: BP 120/74
[2024-05-18] MEDS: NON-FORMULARY ITEM 1 MCG INH (07:33)
[2024-05-18] MEDS: PROTONIX IV 40 MG IV (08:47)
[2024-05-18] MEDS: NSS (PRESERVATIVE FREE) 10 ML IV (08:47)
--- NOTE | 2024-05-18 08:55 | W.PN.HOSP.TC ---
Today's Communication/Plan
-
see bold
Assessment / Plan
Assessment / Plan
SBO
Jejunal mass
-Prior history of SBO in 2009 requiring lysis of adhesions. 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
-Appreciate colorectal surgery input, status post small bowel resection 05/15, continue IV fluids, IV Zosyn for 4 days, NG tube out today, clears afterwards
-Has midline, continue TPN as per colorectal surgery
ADAM - due to volume depletion. ADAM resolved with IV fluids.
Metabolic acidosis -resolved, change IVFs to half-normal saline with potassium chloride
Hypokalemia -replete by IV
Hypophosphatemia�replete by IV
Grade A esophagitis/gastritis -noted on EGD, 05/10. Continue Protonix.
Severe protein calorie malnutrition of acute illness - encourage oral intake when able
Abnormal CXR -pneumonia ruled out, patient is afebrile, no respiratory symptoms
Mild intermittent asthma -stable
DVT prophylaxis�subcu Lovenox
Full code
Updated at bedside 05/15, 05/16, 05/17
Total time spent to see the patient on the floor, examine the patient, review data and lab results, discuss treatment plan with patient, nursing staff around 47 minutes.
Physical Exam
General: No acute distress
HEENT: Normocephalic, Atraumatic, EOMI, MMM
Respiratory: Clear to Auscultation bilaterally
Cardiac: Normal S1/S2, Regular Rate and Rhythm
GI: Soft, appropriately tender, nondistended, incisions clean/dry/intact
Extremities: No Clubbing, Cyanosis, or Edema
Neuro: Nonfocal/Grossly Intact
Psych: Calm, Cooperative
Derm: No Visible lesions
Anticipated Discharge: 24 - 48 hours
Subjective/Interval History
-
Date of Service: May 18, 2024
Patient complains of a sore throat. Her abdominal pain is mild. She has had 2 bowel movements. No fever, no vomiting.
Objective Data
-
Labs:
Laboratory Results
05/18/24 05/18/24
04:15 08:03
Sodium Cancelled Pending
Potassium Cancelled Pending
Chloride Cancelled Pending
Carbon Dioxide Cancelled Pending
BUN Cancelled Pending
Creatinine Cancelled Pending
Glucose Cancelled Pending
Calcium Cancelled Pending
Vital Signs:
Vital Signs
Temp Pulse Resp BP Pulse Ox
97.7 F 95 14 120/74 99
05/18/24 07:15 05/18/24 07:36 05/18/24 07:36 05/18/24 07:15 05/18/24 07:36
I&O
05/17/24 05/18/24 05/19/24
06:59 06:59 06:59
Intake Total 640 / 640 1470 / 1470
Output Total 1600 / 1600 300 / 300
Balance -960 / -960 1170 / 1170
--- NOTE | 2024-05-18 09:16 | W.PN.CRS1 ---
Today's Communication / Plan
-
DC NG tube
Clears
Continue TPN
Assessment/Plan
-
48-year-old male with PMH of asthma, fibroids, Chiari malformation (asymptomatic, incidental finding), who underwent myomectomy in 2009 which was complicated by a prolonged ileus/obstruction and underwent ex lap with lysis of adhesions 17 days
later, who presents for concern of worsening nausea and vomiting associated with abdominal pain. Initially, she was worked up with a CT on 04/20 which showed findings related to the gallbladder, no other issues. An ultrasound was done on 04/25 which
showed a normal gallbladder without gallstones or evidence of cholecystitis. She then underwent an EGD on 05/[address] Morin, which showed esophagitis and gastritis, biopsies were sent. Over the last 3 days, she had worsening of her abdominal
pain associated with worsening nausea and bilious vomiting. She states that this is similar to her prior SBO, but this time she continues to pass flatus. In the ED, a HIDA was done, which was negative. An AXR was done showing signs concerning for
an obstruction. General surgery was consulted for further management
POD#3 robotic SBR, TAP block by anesthesia; 3cm mass in the proximal jejunum causing a SBO
AFVSS
Labs pending
- Discontinue NG tube. Start clears.
- Continue TPN until tolerating a solid food diet.
� Pain control with IV Toradol, Dilaudid as needed
� Hold on any bowel regimen
� Continue IV Zosyn for 4 days for minor enteric contents spillage
� TEDS/SCDS, and Lovenox for DVT prophylaxis
� Appreciate hospitalist
- OR pathology pending
Subjective Data
Procedure
05/15/2024- Robotic lysis of adhesions, small bowel resection; tap block performed preoperatively by anesthesia
Subjective Data
Date of Service: May 18, 2024
Patient states she had a bowel movement last night. She has had a mild amount of flatus. She went to the bathroom this morning and she had more bowel movements and flatus. She has very mild pain. She has been walking.
Objective Data
-
Vital Signs
Temp Pulse Resp BP Pulse Ox
97.7 F 95 14 120/74 99
05/18/24 07:15 05/18/24 07:36 05/18/24 07:36 05/18/24 07:15 05/18/24 07:36
Intake & Output
05/17/24 05/18/24 05/19/24
06:59 06:59 06:59
Intake Total 640 / 640 1470 / 1470
Output Total 1600 / 1600 300 / 300
Balance -960 / -960 1170 / 1170
Intake:
Oral fluids 120 / 120 0 / 0
IV fluids (Total) 960 / 960
IV piggybacks 350 / 350 100 / 100
TPN/PPN 320 / 320
Amount instilled into GI Tube ( 170 / 170 90 / 90
Total)
[place] Sump 170 / 170 90 / 90
Output:
Gastrointestinal tube output ( 950 / 950 300 / 300
Total)
[place] Sump 950 / 950 300 / 300
Urine, [place] 650 / 650
Other:
Number of approximated MODERATE 2 1
amounts of urine
Lab Results
05/17/24 05:44
Physical Exam
-
General: No Acute Distress and AOx3
Abdomen: Soft, Non Distended and Non Tender
Skin: Warm and Dry
Incision: Clear, Dry, Intact
[2024-05-18 09:17] LABS: Blood Urea Nitrogen 16 mg/dl (7-17); Calcium 8.4 mg/dl (8.4-10.2); Carbon Dioxide 34 mmol/L (22-30); Chloride 104 mmol/L (98-107); Estimated Creatinine Clearance 98 ml/min; Glucose 145 mg/dl (70-99); Magnesium 2.1 mg/dl (1.6-2.3); Phosphorus 1.8 mg/dl (2.5-4.5); Potassium 3.3 mmol/L (3.5-5.1); Sodium 143 mmol/L (135-145); eGFR > 60.00
--- NOTE | 2024-05-18 09:45 | PN.CDI ---
CDI
- -
CDI:
Physician Documentation Request
Admit Date: 05/11/24 15:56
Dear Doctor Do,
Signed chest xray on 05/15 impression states '...opacity in the right lower lung, which very likely represents pneumonia'
'right basilar opacification is again seen.' from chest x ray 05/17.
Please indicate in your progress notes if you are in agreement that the above diagnosis is valid for this patient:
____ - Pneumonia is a valid diagnosis (Please include it in your progress notes)
____ - Pneumonia is not a valid diagnosis for this patient
____ - Other
Use of terms such as suspected, likely, concern for, or probable are acceptable for a diagnosis that is being evaluated, monitored or treated as if it exists and can be coded in the inpatient setting, when documented at the time of discharge.
Thank you,
Kamryn Rosenberg RN, BSN
CDI Specialist
tiger text
Please use your independent medical judgment in providing your response.
--- NOTE | 2024-05-18 10:58 | PTCARENOTE ---
pt requested NGT not be removed yet. Would like to speak to Dr. Vázquez, he is off today. will remove tube as pt feels comfortable. She does not want replaced. Only sips of CLD at this time with tube in. Is walking in hallway
update Dr. Vázquez did come in will keep NGT clamped 2 more hrs (since clamped 2hrs) than remove if residuals less than 150mls.
[2024-05-18 12:21] LABS: Glucose - Point of Care 163 mg/dl (70-99)
[2024-05-18 15:25] VITALS: BP 111/70
--- NOTE | 2024-05-18 15:33 | CM ---
Case management following for discharge planning
Chart reviewed
NGT d/c'ed
Clear liquids
Ambulating
CM will cont to following for d/c needs
Plan - anticipate home no needs
[2024-05-18 17:52] LABS: Glucose - Point of Care 184 mg/dl (70-99)
[2024-05-18] MEDS: 0.45% NACL with KCL 20 MEQ 1000 IV (17:57)
[2024-05-18] MEDS: POTASSIUM PHOSPHATE 259.0909 MEQ IV (18:03)
[2024-05-18] MEDS: LOVENOX 40 MG SC (18:19)
--- NOTE | 2024-05-18 18:37 | PTCARENOTE ---
removed NGT at 1415 with 20mls residuals, pt tolerating clear liquids. Has had 5 loose bms today
[2024-05-18] MEDS: TORADOL 15 MG IV (20:55)
[2024-05-18] MEDS: Parenteral Nutrition, Central 830 IV (21:44)
[2024-05-18 23:24] VITALS: BP 116/69
[2024-05-18 23:46] LABS: Glucose - Point of Care 158 mg/dl (70-99)
[2024-05-19] MEDS: ZOSYN 50 IV ×4 (01:05→20:11)
[2024-05-19 05:12] LABS: Blood Urea Nitrogen 15 mg/dl (7-17); Calcium 8.9 mg/dl (8.4-10.2); Carbon Dioxide 30 mmol/L (22-30); Chloride 105 mmol/L (98-107); Estimated Creatinine Clearance 98 ml/min; Glucose 139 mg/dl (70-99); Phosphorus 3.9 mg/dl (2.5-4.5); Potassium 3.7 mmol/L (3.5-5.1); Sodium 142 mmol/L (135-145); eGFR > 60.00
[2024-05-19 05:14] LABS: Glucose - Point of Care 143 mg/dl (70-99)
[2024-05-19] MEDS: TORADOL 15 MG IV ×2 (05:15→13:21)
[2024-05-19 06:00] VITALS: BMI 22.6
[2024-05-19 07:00] VITALS: BP 100/66
[2024-05-19] MEDS: NON-FORMULARY ITEM 1 MCG INH (07:33)
--- NOTE | 2024-05-19 09:16 | W.PN.HOSP.TC ---
Today's Communication/Plan
-
see bold
Assessment / Plan
Assessment / Plan
SBO
Jejunal mass
-Prior history of SBO in 2009 requiring lysis of adhesions. 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
-Appreciate colorectal surgery input, status post small bowel resection 05/15, continue IV Zosyn for 4 days, NG tube out 05/18
-Has midline, continue TPN as per colorectal surgery
-Tolerated clear liquids, for full liquid diet today
ADAM - due to volume depletion. ADAM resolved with IV fluids.
Metabolic acidosis -resolved
Hypokalemia -replete prn
Hypophosphatemia�replete prn
Grade A esophagitis/gastritis -noted on EGD, 05/10. Continue Protonix.
Severe protein calorie malnutrition of acute illness - encourage oral intake when able
Abnormal CXR -pneumonia ruled out, patient is afebrile, no respiratory symptoms
Mild intermittent asthma -stable
DVT prophylaxis�subcu Lovenox
Full code
Updated at bedside 05/15, 05/16, 05/17
Total time spent to see the patient on the floor, examine the patient, review data and lab results, discuss treatment plan with patient, nursing staff around 43 minutes.
Physical Exam
General: No acute distress
HEENT: Normocephalic, Atraumatic, EOMI, MMM
Respiratory: Clear to Auscultation bilaterally
Cardiac: Normal S1/S2, Regular Rate and Rhythm
GI: Soft, appropriately tender, nondistended, incisions clean/dry/intact
Extremities: No Clubbing, Cyanosis, or Edema
Neuro: Nonfocal/Grossly Intact
Psych: Calm, Cooperative
Derm: No Visible lesions
Anticipated Discharge: > 48 hours
Subjective/Interval History
-
Date of Service: May 19, 2024
Her sore throat is much better after removing the tube. Does have abdominal pain. Also passing liquid stool, no gas. No fever, no vomiting.
Objective Data
-
Labs:
Laboratory Results
05/19/24
04:40
Sodium 142
Potassium 3.7
Chloride 105
Carbon Dioxide 30
BUN 15
Creatinine 0.5 L
Glucose 139 H
Calcium 8.9
Vital Signs:
Vital Signs
Temp Pulse Resp BP Pulse Ox
98.6 F 91 16 100/66 100
05/19/24 07:00 05/19/24 07:36 05/19/24 07:36 05/19/24 07:00 05/19/24 07:36
I&O
05/18/24 05/19/24 05/20/24
06:59 06:59 06:59
Intake Total 1470 / 1470 2725 / 2725
Output Total 300 / 300
Balance 1170 / 1170 2725 / 2725
[2024-05-19] MEDS: NSS (PRESERVATIVE FREE) 10 ML IV (10:15)
[2024-05-19] MEDS: PROTONIX IV 40 MG IV (10:15)
--- NOTE | 2024-05-19 10:38 | W.PN.GS2 ---
Addendum entered and electronically signed by Saurabh Tracy MD 05/19/24 14:21:
Patient seen and examined. Agree with assessment plan as documented below.
Mild pain well-controlled with Toradol. Reports queasiness, but denies any nausea or vomiting. No flatus, passing loose stools, questions if there is some dark old blood. Voiding. Ambulating.
Gen: NAD
Abd: soft, minimal tenderness, ND, non-peritoneal, incisions c/d/i - no erythema, ecchymosis, or drainage
Patient is a 48 yo F presenting with nausea x3 weeks with recent onset of vomiting as well with partial obstruction from jejunal mass on imaging
POD #4 RAL SBR with 3cm mass in the proximal jejunum noted (OR path pending)
AFVSS
NGT out on 05/18 and tolerating clears
Liquid stools but not passing flatus
--Full liquids as tolerated
--Continue TPN until good PO intake. D/C additional IVF now that she is tolerating clears
--Analgesics as needed, will add PO options
--Lovenox/SCD's for vte ppx
--OOB/Ambulate
--Hospitalist following with us for medical management
--Repeat labs in AM
Original Note:
Today's Communication / Plan
-
FLD/TPN
Assessment / Plan
-
48 yo female presenting with nausea x3 weeks with recent onset of vomiting as well with partial obstruction from jejunal mass on imaging
POD #4 RAL SBR with 3cm mass in the proximal jejunum noted (OR path pending)
AFVSS
NGT out on 05/18 and tolerating clears
Liquid stools but not passing flatus
--Full liquids as tolerated
--Continue TPN until good PO intake. D/C additional IVF now that she is tolerating clears
--Analgesics as needed, will add PO options
--Lovenox/SCD's for vte ppx
--OOB/Ambulate
--Hospitalist following with us for medical management
Subjective Data
-
Date of Service: May 19, 2024
Patient seen and examined at bedside with Dr. Tracy. Denies n/v but may have had a little queasiness last night after NGT removed. Does not feel she is passing flatus, but having liquid stools every time she voids. Some pain overnight that was
relieved with toradol.
Objective Data
-
Intake and Output
05/18/24 05/19/24 05/20/24
06:59 06:59 06:59
Intake Total 1470 / 1470 2725 / 2725
Output Total 300 / 300
Balance 1170 / 1170 2725 / 2725
Intake:
Oral fluids 0 / 0 720 / 720
IV fluids (Total) 960 / 960 1280 / 1280
IV piggybacks 100 / 100 340 / 340
TPN/PPN 320 / 320 385 / 385
Amount instilled into GI Tube ( 90 / 90
Total)
[place] Sump 90 / 90
Output:
Gastrointestinal tube output ( 300 / 300
Total)
[place] Sump 300 / 300
Other:
Number of approximated MODERATE 1 3
amounts of urine
Vital Signs
Temp Pulse Resp BP Pulse Ox
98.6 F 91 16 100/66 100
05/19/24 07:00 05/19/24 07:36 05/19/24 07:36 05/19/24 07:00 05/19/24 07:36
Lab Results
05/17/24 05:44
05/19/24 04:40
Calcium 8.9 mg/dl (8.4-10.2) 05/19/24 04:40
Phosphorus 3.9 mg/dl (2.5-4.5) 05/19/24 04:40
Magnesium 2.0 mg/dl (1.6-2.3) 05/19/24 04:40
Total Bilirubin 1.8 mg/dl (0.2-1.3) H 05/17/24 10:46
AST 25 U/L (14-36) 05/17/24 10:46
ALT 19 U/L (0-35) 05/17/24 10:46
Alkaline Phosphatase 62 U/L (38-126) 05/17/24 10:46
Total Protein 5.3 g/dl (6.3-8.2) L 05/17/24 10:46
Albumin 3.1 g/dl (3.5-5.0) L 05/17/24 10:46
Physical Exam
-
NAD
ABD soft, minimal incisional tenderness, minimal distention
[2024-05-19] MEDS: 0.45% NACL with KCL 20 MEQ IV (10:46)
[2024-05-19 11:00] VITALS: BP 119/78
[2024-05-19 13:12] LABS: Glucose - Point of Care 158 mg/dl (70-99)
[2024-05-19 15:00] VITALS: BP 110/72
[2024-05-19 16:38] LABS: Glucose - Point of Care 155 mg/dl (70-99)
[2024-05-19] MEDS: LOVENOX 40 MG SC (17:07)
[2024-05-19] MEDS: VENTOLIN NEBULES 2.5 MG INH (20:22)
[2024-05-19] MEDS: Parenteral Nutrition, Central 830 IV (20:57)
[2024-05-20 00:06] VITALS: BP 102/80
[2024-05-20 00:42] LABS: Glucose - Point of Care 150 mg/dl (70-99)
[2024-05-20] MEDS: ZOSYN 50 IV ×4 (02:35→19:41)
[2024-05-20 05:46] VITALS: BMI 22.7
[2024-05-20 05:51] LABS: Glucose - Point of Care 129 mg/dl (70-99)
[2024-05-20] MEDS: NON-FORMULARY ITEM 1 MCG INH (07:31)
[2024-05-20] MEDS: ProAIR HFA INHALER 2 PUFF INH ×2 (07:34→19:56)
[2024-05-20] MEDS: TORADOL 15 MG IV (08:37)
[2024-05-20] MEDS: PROTONIX IV 40 MG IV (08:38)
[2024-05-20] MEDS: NSS (PRESERVATIVE FREE) 10 ML IV (08:38)
--- NOTE | 2024-05-20 08:47 | W.PN.GS2 ---
Today's Communication / Plan
-
--X-ray abdomen
--Full liquids for now pending above
--Continue TPN until good PO intake. D/C additional IVF. Decision on renewal pending X-ray
--Repeat labs pending
Assessment / Plan
-
48 yo female presenting with nausea x3 weeks with recent onset of vomiting as well with partial obstruction from jejunal mass on imaging
POD#5 RAL SBR with 3cm mass in the proximal jejunum noted (OR path pending)
AFVSS
NGT out on 05/18, advanced to fulls
Liquid stools but not passing flatus
Difficult to fully ascertain the status of her bowel function. She is passing some loose stool, though no flatus over 24 hours. Mild distention on abdominal exam. No nausea or vomiting. Plan for abdominal x-ray to assess degree of bowel of
distention. This will help to gauge dietary recommendations as well as need for further TPN. If significant bowel distention would continue TPN and back down to clears. If little to no bowel distention then would DC TPN and add supplement shakes
in addition to fulls. Encourage patient to get up and out of bed and walk.
--X-ray abdomen
--Full liquids for now pending above
--Continue TPN until good PO intake. D/C additional IVF
--Analgesics as needed, will add PO options
--Lovenox/SCD's for vte ppx
--OOB/Ambulate
--Repeat labs pending
--Hospitalist following with us for medical management
Subjective Data
-
Date of Service: May 20, 2024
Pain overall well-controlled. Does feel a little more bloated today. Passing intermittent loose stools with some incontinence, no flatus. No nausea or vomiting. Voiding. Minimal ambulation.
Objective Data
-
Intake and Output
05/19/24 05/20/24 05/21/24
06:59 06:59 06:59
Intake Total 3109 / 3109 2250 / 2250
Balance 3109 / 3109 2250 / 2250
Intake:
Oral fluids 720 / 720 840 / 840
IV fluids (Total) 1280 / 1280 470 / 470
IV piggybacks 340 / 340 100 / 100
TPN/PPN 769 / 769 840 / 840
Other:
Number of approximated MODERATE 3 2
amounts of urine
Vital Signs
Temp Pulse Resp BP Pulse Ox
97.8 F 89 16 102/80 97
05/20/24 00:06 05/20/24 07:36 05/20/24 07:36 05/20/24 00:06 05/20/24 07:36
Calcium 8.9 mg/dl (8.4-10.2) 05/19/24 04:40
Phosphorus 3.9 mg/dl (2.5-4.5) 05/19/24 04:40
Magnesium 2.0 mg/dl (1.6-2.3) 05/19/24 04:40
Total Bilirubin 1.8 mg/dl (0.2-1.3) H 05/17/24 10:46
AST 25 U/L (14-36) 05/17/24 10:46
ALT 19 U/L (0-35) 05/17/24 10:46
Alkaline Phosphatase 62 U/L (38-126) 05/17/24 10:46
Total Protein 5.3 g/dl (6.3-8.2) L 05/17/24 10:46
Albumin 3.1 g/dl (3.5-5.0) L 05/17/24 10:46
Physical Exam
-
Gen: NAD
Abd: soft, mild tenderness, mild distension, tympany, non-peritoneal, incisions c/d/i - no erythema, ecchymosis or drainage
[2024-05-20 08:49] LABS: Hematocrit 25.1 % (37.0-47.0); Hemoglobin 8.2 g/dL (12.0-16.0); Mean Corp Hgb Conc. 32.7 g/dL (33.0-37.0); Mean Corpuscular Hgb 32.7 pg (27.0-31.0); Mean Platelet Volume 10.1 fL (7.4-10.4); Platelet Count 246 10^3/uL (130-400); Red Blood Cell Count 2.51 10^6/uL (4.20-5.40); Red Cell Dist. Width 12.3 % (11.5-14.5); White Blood Cell Count 7.6 10^3/uL (4.8-10.8)
--- NOTE | 2024-05-20 08:52 | W.PN.HOSP.TC ---
Today's Communication/Plan
-
see bold
Assessment / Plan
Assessment / Plan
SBO
Jejunal mass
-Prior history of SBO in 2009 requiring lysis of adhesions. 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
-Appreciate colorectal surgery input, status post small bowel resection 05/15, continue IV Zosyn for 4 days, NG tube out 05/18
-Has midline, continue TPN as per colorectal surgery
-05/20 Abd XR w/ mild developing SBO versus ileus, new
-Back to clear liquids per colorectal surgery
Acute blood loss anemia -Hgb 8.2 today, poss lab error. Was 10.1 yesterday. Continue to trend.
ADAM - due to volume depletion. ADAM resolved with IV fluids.
Metabolic acidosis -resolved
Hypokalemia -replete prn
Hypophosphatemia�replete prn
Grade A esophagitis/gastritis -noted on EGD, 05/10. Continue Protonix.
Severe protein calorie malnutrition of acute illness - encourage oral intake when able
Abnormal CXR -pneumonia ruled out, patient is afebrile, no respiratory symptoms
Mild intermittent asthma -stable, continue bronchodilators as needed
DVT prophylaxis�subcu Lovenox
Full code
Updated at bedside 05/15, 05/16, 05/17
Total time spent to see the patient on the floor, examine the patient, review data and lab results, discuss treatment plan with patient, nursing staff around 40 minutes.
Physical Exam
General: No acute distress
HEENT: Normocephalic, Atraumatic, EOMI, MMM
Respiratory: Clear to Auscultation bilaterally
Cardiac: Normal S1/S2, Regular Rate and Rhythm
GI: Soft, appropriately tender, mildly distended, incisions clean/dry/intact
Extremities: No Clubbing, Cyanosis, or Edema
Neuro: Nonfocal/Grossly Intact
Psych: Calm, Cooperative
Derm: No Visible lesions
Anticipated Discharge: 24 - 48 hours
Subjective/Interval History
-
Date of Service: May 19, 2024
Patient continues to have liquid stools. Abdominal pain is tolerable. Does not feel like she is passing gas. No fever, no vomiting.
Objective Data
-
Labs:
Laboratory Results
05/19/24
04:40
Sodium 142
Potassium 3.7
Chloride 105
Carbon Dioxide 30
BUN 15
Creatinine 0.5 L
Glucose 139 H
Calcium 8.9
Vital Signs:
Vital Signs
Temp Pulse Resp BP Pulse Ox
98.1 F 92 18 119/78 99
05/19/24 11:00 05/19/24 11:00 05/19/24 11:00 05/19/24 11:00 05/19/24 11:00
I&O
05/18/24 05/19/24 05/20/24
06:59 06:59 06:59
Intake Total 1470 / 1470 2725 / 2725
Output Total 300 / 300
Balance 1170 / 1170 2725 / 2725
[2024-05-20 08:58] LABS: ALT (SGPT) 26 U/L (0-35); AST (SGOT) 45 U/L (14-36); Alkaline Phosphatase 54 U/L (38-126); Blood Urea Nitrogen 14 mg/dl (7-17); Carbon Dioxide 25 mmol/L (22-30); Chloride 107 mmol/L (98-107); Estimated Creatinine Clearance 98 ml/min; Glucose 142 mg/dl (70-99); Magnesium 1.9 mg/dl (1.6-2.3); Phosphorus 3.5 mg/dl (2.5-4.5); Potassium 4.4 mmol/L (3.5-5.1); Sodium 142 mmol/L (135-145); Total Protein 5.3 g/dl (6.3-8.2); eGFR > 60.00
[2024-05-20 10:13] VITALS: BP 123/74
--- NOTE | 2024-05-20 13:25 | PTCARENOTE ---
diet to CLD for small ileus. pt has increased anxiety and concern that she will have the NGT replaced, at this time that is not the plan, but pt is crying. Nurse is providing comfort and support, trying to provide distraction also.
[2024-05-20 14:46] LABS: Calprotectin, Fecal 907 ug/g (<=49)
[2024-05-20 15:14] VITALS: BP 122/71
--- NOTE | 2024-05-20 16:20 | W.PN.UPDATE ---
Update Note
Progress Note Update
S/B: Patient with mild abdominal distention today and sensation of fullness, increased from previous. No n/v. Passing some small liquid stools but not passing much flatus. No worsening pain. Tearful about her condition and LOS.
A: XR done in evaluation with mild ileus noted.
R: Reviewed imaging with patient and discussed plan of care. Changed diet from full to clear liquids. Will continue TPN via PICC. Encouraged ambulation/activity.
[2024-05-20] MEDS: LOVENOX 40 MG SC (17:47)
[2024-05-20 18:29] LABS: Glucose - Point of Care 121 mg/dl (70-99)
[2024-05-20] MEDS: Parenteral Nutrition, Central 830 IV (21:14)
[2024-05-20 22:35] VITALS: BP 110/66
[2024-05-20 23:55] LABS: Glucose - Point of Care 130 mg/dl (70-99)
[2024-05-21] MEDS: ZOSYN 50 IV ×4 (01:46→20:07)
[2024-05-21 05:31] VITALS: BMI 22.3
[2024-05-21 06:54] LABS: Glucose - Point of Care 130 mg/dl (70-99)
[2024-05-21 07:44] VITALS: BP 113/75
[2024-05-21 07:48] LABS: Hemoglobin 8.1 g/dL (12.0-16.0); Mean Corp Hgb Conc. 32.4 g/dL (33.0-37.0); Mean Corpuscular Hgb 31.6 pg (27.0-31.0); Mean Corpuscular Volume 97.7 fL (81.0-99.0); Mean Platelet Volume 9.9 fL (7.4-10.4); Platelet Count 265 10^3/uL (130-400); Red Blood Cell Count 2.56 10^6/uL (4.20-5.40); Red Cell Dist. Width 12.6 % (11.5-14.5); White Blood Cell Count 6.7 10^3/uL (4.8-10.8)
[2024-05-21] MEDS: ProAIR HFA INHALER 2 PUFF INH ×2 (07:58→12:58)
[2024-05-21] MEDS: NON-FORMULARY ITEM 1 MCG INH (07:59)
[2024-05-21] MEDS: NSS (PRESERVATIVE FREE) 10 ML IV (08:04)
[2024-05-21] MEDS: PROTONIX IV 40 MG IV (08:07)
[2024-05-21 08:49] LABS: ALT (SGPT) 178 U/L (0-35); AST (SGOT) 208 U/L (14-36); Albumin 3.3 g/dl (3.5-5.0); Alkaline Phosphatase 81 U/L (38-126); Blood Urea Nitrogen 14 mg/dl (7-17); Calcium 9.3 mg/dl (8.4-10.2); Carbon Dioxide 25 mmol/L (22-30); Chloride 103 mmol/L (98-107); Estimated Creatinine Clearance 98 ml/min; Glucose 120 mg/dl (70-99); Phosphorus 4.1 mg/dl (2.5-4.5); Potassium 5.2 mmol/L (3.5-5.1); Sodium 138 mmol/L (135-145); Total Bilirubin 1.2 mg/dl (0.2-1.3); Total Protein 5.8 g/dl (6.3-8.2); Triglycerides 117 mg/dl (10-149); eGFR > 60.00
--- NOTE | 2024-05-21 09:47 | W.PN.CRS1 ---
Today's Communication / Plan
-
fulls
tpn one more day
Assessment/Plan
-
48-year-old male with PMH of asthma, fibroids, Chiari malformation (asymptomatic, incidental finding), who underwent myomectomy in 2009 which was complicated by a prolonged ileus/obstruction and underwent ex lap with lysis of adhesions 17 days
later, who presents for concern of worsening nausea and vomiting associated with abdominal pain. Initially, she was worked up with a CT on 04/20 which showed findings related to the gallbladder, no other issues. An ultrasound was done on 04/25 which
showed a normal gallbladder without gallstones or evidence of cholecystitis. She then underwent an EGD on 05/[address] Morin, which showed esophagitis and gastritis, biopsies were sent. Over the last 3 days, she had worsening of her abdominal
pain associated with worsening nausea and bilious vomiting. She states that this is similar to her prior SBO, but this time she continues to pass flatus. In the ED, a HIDA was done, which was negative. An AXR was done showing signs concerning for
an obstruction. General surgery was consulted for further management
POD#4 robotic SBR, TAP block by anesthesia; 3cm mass in the proximal jejunum causing a SBO
AFVSS
WBC 6.7. AST 208 (45). ALT: 178 (26)
- Advance diet to fulls
- Continue TPN until tolerating a solid food diet - likely last bag tonight
� Pain control with IV Toradol, Dilaudid as needed
� Hold on any bowel regimen
� Continue IV Zosyn for 4 days for minor enteric contents spillage (last day)
� TEDS/SCDS, and Lovenox for DVT prophylaxis
� Appreciate hospitalist
- OR pathology pending
- LFTs elevated, likely due to TPN, trend
Subjective Data
Procedure
05/15/2024- Robotic lysis of adhesions, small bowel resection; tap block performed preoperatively by anesthesia
Subjective Data
Date of Service: May 21, 2024
Patient states that she feels a little bloated. She is having a large amount of loose stool. She is tolerating clears and is hungry for more. She has occasional belching.
Objective Data
-
Vital Signs
Temp Pulse Resp BP Pulse Ox
98.4 F 92 16 113/75 100
05/21/24 07:44 05/21/24 08:02 05/21/24 08:02 05/21/24 07:44 05/21/24 08:02
Intake & Output
05/20/24 05/21/24 05/22/24
06:59 06:59 06:59
Intake Total 2250 / 2250 1590 / 1590
Balance 2250 / 2250 1590 / 1590
Intake:
Oral fluids 840 / 840 500 / 500
IV fluids (Total) 470 / 470 50 / 50
IV piggybacks 100 / 100 200 / 200
TPN/PPN 840 / 840 840 / 840
Other:
Number of approximated MODERATE 2 2
amounts of urine
Number of approximated LARGE 1
amounts of urine
Lab Results
05/21/24 07:39
05/21/24 07:39
Physical Exam
-
General: No Acute Distress and AOx3
Abdomen: Soft, Distended (mild) and Non Tender
Skin: Warm and Dry
Incision: Clear, Dry, Intact
--- NOTE | 2024-05-21 10:06 | W.PN.HOSP.TC ---
Today's Communication/Plan
-
Monitor hemoglobin
Assessment / Plan
Assessment / Plan
Gen-AAOx3, NAD
HEENT-NC, AT, anicteric, clear oral mm
Neck-supple
CV-reg, no M, +S1/S2
Lungs-clear B/L
Abd-soft, nondistended, minimal tenderness
Ext-no edema
Musculoskeletal-no cyanosis, clubbing
Skin-warm and dry
Neuro-grossly non-focal
Psych-calm, cooperative
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 Path report from surgery pending.
-Prior history of SBO in 2009 requiring lysis of adhesions. 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
-Appreciate colorectal surgery input, status post small bowel resection 05/15, continue IV Zosyn for 4 days, NG tube out 05/18
-Has midline, continue TPN as per colorectal surgery
-05/20 Abd XR w/ mild developing SBO versus ileus, new.
Diet advanced to full liquids. Remains on IV Zosyn, discontinue if okay with surgical service.
Acute blood loss anemia -Hgb 8.1 today. Unclear etiology. Concern for possible GI related blood loss versus inflammatory anemia versus operative loss versus other. Heme check stools. Stool so far appear to be brown. Stop NSAIDs.
ADAM - due to volume depletion. ADAM resolved with IV fluids.
Metabolic acidosis -resolved
Hyperkalemia -5.2 today. Adjust potassium in TPN.
Hypophosphatemia�replete prn
Grade A esophagitis/gastritis -noted on EGD, 05/10. Continue Protonix.
Severe protein calorie malnutrition of acute illness - encourage oral intake when able
Abnormal CXR -pneumonia ruled out, patient is afebrile, no respiratory symptoms
Mild intermittent asthma -stable, continue bronchodilators as needed
DVT prophylaxis�subcu Lovenox
Full code
Anticipated Discharge: 24 - 48 hours
Subjective/Interval History
-
Date of Service: May 21, 2024
Patient seen and examined. Frustrated about being here so long. Denies any abdominal pain.
Objective Data
-
Labs:
Laboratory Results
05/21/24
07:39
WBC 6.7
Hgb 8.1 L
Hct 25.0 L
Plt Count 265
Sodium 138
Potassium 5.2 H
Chloride 103
Carbon Dioxide 25
BUN 14
Creatinine 0.5 L
Glucose 120 H
Calcium 9.3
Total Bilirubin 1.2
AST 208 H
ALT 178 H
Alkaline Phosphatase 81
Vital Signs:
Vital Signs
Temp Pulse Resp BP Pulse Ox
98.4 F 92 16 113/75 100
05/21/24 07:44 05/21/24 08:02 05/21/24 08:02 05/21/24 07:44 05/21/24 08:02
I&O
05/20/24 05/21/24 05/22/24
06:59 06:59 06:59
Intake Total 2250 / 2250 1590 / 1590
Balance 2250 / 2250 1590 / 1590
Review of Systems
-
History Source: Patient
All other systems: Reviewed and negative
--- NOTE | 2024-05-21 12:24 | CM ---
Case management following for discharge planning
Chart reviewed
Advancing diet to full liquids
TPN
CM remains available for discharge needs
Plan - anticipate home no needs when medically stable
--- NOTE | 2024-05-21 12:53 | PTCARENOTE ---
Dr. Alvarado ordered hemetest all stools. First BM was heme positive. Dr. Alvarado and Rebeca Pringle, Surgery made aware. No new orders at this time.
[2024-05-21 12:55] LABS: Glucose - Point of Care 129 mg/dl (70-99)
[2024-05-21 15:23] VITALS: BP 108/66
[2024-05-21] MEDS: TORADOL 30 MG IV ×2 (17:52→22:22)
[2024-05-21] MEDS: LOVENOX 40 MG SC (17:53)
[2024-05-21 18:06] LABS: Glucose - Point of Care 124 mg/dl (70-99)
[2024-05-21] MEDS: Parenteral Nutrition, Central 820 IV (21:20)
[2024-05-21 23:45] VITALS: BP 99/63
[2024-05-21 23:50] LABS: Glucose - Point of Care 141 mg/dl (70-99)
[2024-05-22] MEDS: ZOSYN 50 IV ×2 (02:47→08:46)
[2024-05-22] MEDS: TORADOL 30 MG IV ×2 (04:00→15:17)
[2024-05-22 05:49] LABS: % Basophils 0.3 % (0-2); % Eosinophils 4.1 % (0-6); % Immature Granulocytes 4.3 % (0-0.5); % Lymphocytes 33.9 % (20.5-51.1); % Monocytes 17.7 % (1.7-9.3); % Neutrophils 39.7 % (42.2-75.2); Absolute Eosinophils 0.3 10^3/uL (0-0.7); Absolute Immature Granulocytes 0.3 10^3/uL (0-0.05); Absolute Lymphocytes 2.1 10^3/uL (1.2-3.4); Absolute Monocytes 1.1 10^3/uL (0.1-0.6); Absolute Neutrophils 2.4 10^3/uL (1.4-6.5); Hematocrit 25.3 % (37.0-47.0); Hemoglobin 8.1 g/dL (12.0-16.0); Mean Corpuscular Hgb 32.4 pg (27.0-31.0); Mean Corpuscular Volume 101.2 fL (81.0-99.0); Mean Platelet Volume 10.3 fL (7.4-10.4); Nucleated Red Blood Cells % 0 %; Platelet Count 297 10^3/uL (130-400); Red Cell Dist. Width 12.9 % (11.5-14.5); White Blood Cell Count 6.1 10^3/uL (4.8-10.8)
[2024-05-22 05:53] LABS: ALT (SGPT) 214 U/L (0-35); AST (SGOT) 169 U/L (14-36); Albumin 3.5 g/dl (3.5-5.0); Alkaline Phosphatase 93 U/L (38-126); Blood Urea Nitrogen 18 mg/dl (7-17); Calcium 9.3 mg/dl (8.4-10.2); Carbon Dioxide 23 mmol/L (22-30); Chloride 105 mmol/L (98-107); Estimated Creatinine Clearance 98 ml/min; Glucose 112 mg/dl (70-99); Potassium 5.1 mmol/L (3.5-5.1); Sodium 138 mmol/L (135-145); Total Bilirubin 1.3 mg/dl (0.2-1.3); Total Protein 5.9 g/dl (6.3-8.2); eGFR > 60.00
[2024-05-22 07:01] LABS: Glucose - Point of Care 130 mg/dl (70-99)
[2024-05-22] MEDS: NON-FORMULARY ITEM 200 MCG INH (07:25)
[2024-05-22 07:42] VITALS: BP 107/74
[2024-05-22 07:44] VITALS: BMI 21.9
[2024-05-22] MEDS: PROTONIX IV 40 MG IV (08:46)
[2024-05-22] MEDS: NSS (PRESERVATIVE FREE) 10 ML IV (08:46)
--- NOTE | 2024-05-22 09:04 | W.PN.HOSP.TC ---
Today's Communication/Plan
-
Continue current care
Assessment / Plan
Assessment / Plan
Gen-AAOx3, NAD
HEENT-NC, AT, anicteric, clear oral mm
Neck-supple
CV-reg, no M, +S1/S2
Lungs-clear B/L
Abd-soft, nondistended, minimal tenderness
Ext-no edema
Musculoskeletal-no cyanosis, clubbing
Skin-warm and dry
Neuro-grossly non-focal
Psych-calm, cooperative
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 Path report from surgery pending.
-Prior history of SBO in 2009 requiring lysis of adhesions. 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
-Appreciate colorectal surgery input, status post small bowel resection 05/15, continue IV Zosyn for 4 days, NG tube out 05/18
-Has midline, continue TPN as per colorectal surgery
-05/20 Abd XR w/ mild developing SBO versus ileus, new.
Advance diet to low residue if okay with surgical service. Discontinue antibiotics.
Acute blood loss anemia -Hgb stable at 8.1 today. Suspect GI related blood loss due to surgery, small bowel mass. NSAIDs resumed by surgical service.
ADAM - due to volume depletion. ADAM resolved with IV fluids.
Metabolic acidosis -resolved
Hyperkalemia - improved.
Hypophosphatemia�replete prn
Grade A esophagitis/gastritis -noted on EGD, 05/10. Continue Protonix.
Severe protein calorie malnutrition of acute illness - encourage oral intake when able
Abnormal CXR -pneumonia ruled out, patient is afebrile, no respiratory symptoms
Mild intermittent asthma -stable, continue bronchodilators as needed
DVT prophylaxis�subcu Lovenox
Full code
Anticipated Discharge: Within 24 hours
Subjective/Interval History
-
Date of Service: May 22, 2024
Patient seen and examined. No abdominal pain, no other complaints.
Objective Data
-
Labs:
Laboratory Results
05/22/24
04:54
WBC 6.1
Hgb 8.1 L
Hct 25.3 L
Plt Count 297
Sodium 138
Potassium 5.1
Chloride 105
Carbon Dioxide 23
BUN 18 H
Creatinine 0.6
Glucose 112 H
Calcium 9.3
Total Bilirubin 1.3
AST 169 H
ALT 214 H
Alkaline Phosphatase 93
Vital Signs:
Vital Signs
Temp Pulse Resp BP Pulse Ox
98.3 F 95 18 107/74 100
05/22/24 07:42 05/22/24 07:42 05/22/24 07:42 05/22/24 07:42 05/22/24 07:42
I&O
05/21/24 05/22/24 05/23/24
06:59 06:59 06:59
Intake Total 1590 / 1590 5350 / 5350
Output Total 250 / 250
Balance 1590 / 1590 5100 / 5100
Review of Systems
-
History Source: Patient
All other systems: Reviewed and negative
--- NOTE | 2024-05-22 09:46 | W.PN.CRS1 ---
Today's Communication / Plan
-
low residue diet
anticipate stopping tpn tonight
Assessment/Plan
-
48-year-old male with PMH of asthma, fibroids, Chiari malformation (asymptomatic, incidental finding), who underwent myomectomy in 2009 which was complicated by a prolonged ileus/obstruction and underwent ex lap with lysis of adhesions 17 days
later, who presents for concern of worsening nausea and vomiting associated with abdominal pain. Initially, she was worked up with a CT on 04/20 which showed findings related to the gallbladder, no other issues. An ultrasound was done on 04/25 which
showed a normal gallbladder without gallstones or evidence of cholecystitis. She then underwent an EGD on 05/[address] Morin, which showed esophagitis and gastritis, biopsies were sent. Over the last 3 days, she had worsening of her abdominal
pain associated with worsening nausea and bilious vomiting. She states that this is similar to her prior SBO, but this time she continues to pass flatus. In the ED, a HIDA was done, which was negative. An AXR was done showing signs concerning for
an obstruction. General surgery was consulted for further management
POD#5 robotic SBR, TAP block by anesthesia; 3cm mass in the proximal jejunum causing a SBO
AFVSS
WBC 6.1. AST 169 (208). ALT: 214 (178)
- Advance diet to low residue
- Continue TPN until tolerating a solid food diet - will likely not renew her TPN today
� Pain control with IV Toradol, Dilaudid as needed
� Hold on any bowel regimen
� TEDS/SCDS, and Lovenox for DVT prophylaxis
� Appreciate hospitalist
- OR pathology pending
- LFTs elevated, likely due to TPN, trend
Subjective Data
Procedure
05/15/2024- Robotic lysis of adhesions, small bowel resection; tap block performed preoperatively by anesthesia
Subjective Data
Date of Service: May 22, 2024
Patient state she is still having loose stools. She denies nausea or vomiting. She was able to eat some fulls yesterday but not much.
Objective Data
-
Vital Signs
Temp Pulse Resp BP Pulse Ox
98.3 F 95 18 107/74 100
05/22/24 07:42 05/22/24 07:42 05/22/24 07:42 05/22/24 07:42 05/22/24 07:42
Intake & Output
05/21/24 05/22/24 05/23/24
06:59 06:59 06:59
Intake Total 1590 / 1590 5350 / 5350
Output Total 250 / 250
Balance 1590 / 1590 5100 / 5100
Intake:
Oral fluids 500 / 500 4840 / 4840
IV fluids (Total) 50 / 50
IV piggybacks 200 / 200 100 / 100
TPN/PPN 840 / 840 410 / 410
Output:
Liquid stool amount 250 / 250
Rectum 250 / 250
Other:
Number of approximated SMALL 2
amounts of urine
Number of approximated MODERATE 2
amounts of urine
Number of approximated LARGE 1
amounts of urine
Lab Results
05/22/24 04:54
05/22/24 04:54
Physical Exam
-
General: No Acute Distress and AOx3
Abdomen: Soft, Distended (mild) and Non Tender
Skin: Warm and Dry
Incision: Clear, Dry, Intact
[2024-05-22 11:50] LABS: Glucose - Point of Care 124 mg/dl (70-99)
[2024-05-22] MEDS: TORADOL IV ×2 (12:33→12:36)
[2024-05-22 15:18] VITALS: BP 104/63
[2024-05-22] MEDS: ProAIR HFA INHALER 2 PUFF INH (16:26)
[2024-05-22 18:15] LABS: Glucose - Point of Care 119 mg/dl (70-99)
[2024-05-22] MEDS: LOVENOX 40 MG SC (18:19)
[2024-05-22 22:52] VITALS: BP 94/54
[2024-05-23] MEDS: TORADOL 30 MG IV (05:50)
[2024-05-23 06:00] VITALS: BMI 21.9
[2024-05-23 06:34] LABS: % Basophils 0.4 % (0-2); % Eosinophils 2.4 % (0-6); % Lymphocytes 34.9 % (20.5-51.1); % Monocytes 12.8 % (1.7-9.3); % Neutrophils 45.5 % (42.2-75.2); Absolute Eosinophils 0.2 10^3/uL (0-0.7); Absolute Immature Granulocytes 0.3 10^3/uL (0-0.05); Absolute Lymphocytes 2.8 10^3/uL (1.2-3.4); Absolute Neutrophils 3.7 10^3/uL (1.4-6.5); Hematocrit 28.3 % (37.0-47.0); Hemoglobin 9.1 g/dL (12.0-16.0); Mean Corp Hgb Conc. 32.2 g/dL (33.0-37.0); Mean Corpuscular Volume 99.6 fL (81.0-99.0); Nucleated Red Blood Cells % 0.4 %; Platelet Count 408 10^3/uL (130-400); Red Blood Cell Count 2.84 10^6/uL (4.20-5.40); Red Cell Dist. Width 13.7 % (11.5-14.5)
[2024-05-23 07:35] VITALS: BP 102/63
[2024-05-23] MEDS: NSS (PRESERVATIVE FREE) 10 ML IV (08:37)
[2024-05-23] MEDS: PROTONIX IV 40 MG IV (08:37)
[2024-05-23] MEDS: NON-FORMULARY ITEM 200 MCG INH (08:42)
--- NOTE | 2024-05-23 09:14 | W.PN.CRS1 ---
Today's Communication / Plan
-
c.diff
continue low residue
Assessment/Plan
-
48-year-old male with PMH of asthma, fibroids, Chiari malformation (asymptomatic, incidental finding), who underwent myomectomy in 2009 which was complicated by a prolonged ileus/obstruction and underwent ex lap with lysis of adhesions 17 days
later, who presents for concern of worsening nausea and vomiting associated with abdominal pain. Initially, she was worked up with a CT on 04/20 which showed findings related to the gallbladder, no other issues. An ultrasound was done on 04/25 which
showed a normal gallbladder without gallstones or evidence of cholecystitis. She then underwent an EGD on 05/[address] Morin, which showed esophagitis and gastritis, biopsies were sent. Over the last 3 days, she had worsening of her abdominal
pain associated with worsening nausea and bilious vomiting. She states that this is similar to her prior SBO, but this time she continues to pass flatus. In the ED, a HIDA was done, which was negative. An AXR was done showing signs concerning for
an obstruction. General surgery was consulted for further management
POD#6 robotic SBR, TAP block by anesthesia; 3cm mass in the proximal jejunum causing a SBO
AFVSS
WBC 8.0
- Continue low residue, added Ensure
- C.diff due to loose stool
� Pain control with IV Toradol, Dilaudid as needed
� Hold on any bowel regimen
� TEDS/SCDS, and Lovenox for DVT prophylaxis
� Appreciate hospitalist
- OR pathology pending
Subjective Data
Procedure
05/15/2024- Robotic lysis of adhesions, small bowel resection; tap block performed preoperatively by anesthesia
Subjective Data
Date of Service: May 23, 2024
Patient states she feels 'tight' in her abdomen. She has had no flatus since yesterday morning but she did have liquid stools this morning.
Objective Data
-
Vital Signs
Temp Pulse Resp BP Pulse Ox
97.9 F 94 16 102/63 99
05/23/24 07:35 05/23/24 07:35 05/23/24 07:35 05/23/24 07:35 05/23/24 07:35
Intake & Output
05/22/24 05/23/24 05/24/24
06:59 06:59 06:59
Intake Total 5350 / 5350 1829
Output Total 250 / 250
Balance 5100 / 5100 1829
Intake:
Oral fluids 4840 / 4840 1680 / 1680
IV piggybacks 100 / 100
TPN/PPN 410 / 410 150 / 150
Output:
Liquid stool amount 250 / 250
Rectum 250 / 250
Other:
Number of approximated SMALL 2
amounts of urine
Number of approximated MODERATE 3
amounts of urine
Number of approximated LARGE 2
amounts of urine
Lab Results
05/23/24 05:50
05/22/24 04:54
Physical Exam
-
General: No Acute Distress and AOx3
Abdomen: Soft, Distended (mild) and Non Tender
Skin: Warm and Dry
--- NOTE | 2024-05-23 12:52 | W.PN.HOSP.TC ---
Today's Communication/Plan
-
Possible discharge today if stable and cleared by surgery
Assessment / Plan
Assessment / Plan
Gen-AAOx3, NAD
HEENT-NC, AT, anicteric, clear oral mm
Neck-supple
CV-reg, no M, +S1/S2
Lungs-clear B/L
Abd-soft, nondistended, minimal tenderness
Ext-no edema
Musculoskeletal-no cyanosis, clubbing
Skin-warm and dry
Neuro-grossly non-focal
Psych-calm, cooperative
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 Path report from surgery pending.
-Prior history of SBO in 2009 requiring lysis of adhesions. 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
-Appreciate colorectal surgery input, status post small bowel resection 05/15, continue IV Zosyn for 4 days, NG tube out 05/18
-Has midline, continue TPN as per colorectal surgery
-05/20 Abd XR w/ mild developing SBO versus ileus, new.
Tolerating low residue diet but now having loose stools. Stool studies ordered by surgical service.
Acute blood loss anemia -Hgb spontaneously improved to 9.1. Suspect GI related blood loss due to surgery, small bowel mass. NSAIDs discontinued.
ADAM - due to volume depletion. ADAM resolved with IV fluids.
Metabolic acidosis -resolved
Hyperkalemia - improved.
Hypophosphatemia�replete prn
Grade A esophagitis/gastritis -noted on EGD, 05/10. Continue Protonix.
Severe protein calorie malnutrition of acute illness - encourage oral intake when able
Abnormal CXR -pneumonia ruled out, patient is afebrile, no respiratory symptoms
Mild intermittent asthma -stable, continue bronchodilators as needed
DVT prophylaxis�subcu Lovenox
Full code
Anticipated Discharge: Today
Subjective/Interval History
-
Date of Service: May 23, 2024
Patient seen and examined. Complaining of loose stools.
Objective Data
-
Labs:
Laboratory Results
05/23/24
05:50
WBC 8.0
Hgb 9.1 L
Hct 28.3 L
Plt Count 408 H D
Vital Signs:
Vital Signs
Temp Pulse Resp BP Pulse Ox
97.9 F 94 16 102/63 99
05/23/24 07:35 05/23/24 07:35 05/23/24 07:35 05/23/24 07:35 05/23/24 07:35
I&O
05/22/24 05/23/24 05/24/24
06:59 06:59 06:59
Intake Total 5350 / 5350 1829 / 0
Output Total 250 / 250
Balance 5100 / 5100 1829 / 1829
Review of Systems
-
History Source: Patient
All other systems: Reviewed and negative
[2024-05-23 15:09] VITALS: BP 97/59
--- NOTE | 2024-05-23 15:41 | CM ---
CM reviewed chart and discussed with nursing
Pt not ready for dc today
Bedside meeting with pt and spouse
No dc needs noted currently
CM will continue to follow for dc planning
Discharge Disposition- home, no needs anticipated
[2024-05-23] MEDS: LOVENOX 40 MG SC (18:15)
[2024-05-23 22:58] VITALS: BP 107/65
[2024-05-24 06:00] VITALS: BMI 21.4
[2024-05-24 07:30] VITALS: BP 91/55
[2024-05-24] MEDS: NON-FORMULARY ITEM 200 MCG INH (08:51)
[2024-05-24] MEDS: PROTONIX IV 40 MG IV (09:49)
[2024-05-24] MEDS: NSS (PRESERVATIVE FREE) 10 ML IV (09:49)
[2024-05-24] MEDS: FLUSH (NSS) 1 FLUSH IV (09:50)
--- NOTE | 2024-05-24 09:54 | W.PN.CRS1 ---
Today's Communication / Plan
-
regular diet
eliquis on discharge
dispo planning
Assessment/Plan
-
48-year-old male with PMH of asthma, fibroids, Chiari malformation (asymptomatic, incidental finding), who underwent myomectomy in 2009 which was complicated by a prolonged ileus/obstruction and underwent ex lap with lysis of adhesions 17 days
later, who presents for concern of worsening nausea and vomiting associated with abdominal pain. Initially, she was worked up with a CT on 04/20 which showed findings related to the gallbladder, no other issues. An ultrasound was done on 04/25 which
showed a normal gallbladder without gallstones or evidence of cholecystitis. She then underwent an EGD on 05/[address] Morin, which showed esophagitis and gastritis, biopsies were sent. Over the last 3 days, she had worsening of her abdominal
pain associated with worsening nausea and bilious vomiting. She states that this is similar to her prior SBO, but this time she continues to pass flatus. In the ED, a HIDA was done, which was negative. An AXR was done showing signs concerning for
an obstruction. General surgery was consulted for further management
POD#7 robotic SBR, TAP block by anesthesia; 3cm mass in the proximal jejunum causing a SBO
AFVSS
- Change diet to regular with Ensure
- C.diff pending
� Pain control with IV Toradol, Dilaudid as needed
� Hold on any bowel regimen
� TEDS/SCDS, and Lovenox for DVT prophylaxis
� Appreciate hospitalist
- OR pathology discussed with patient yesterday 05/[address] Vázquez
- Will need Eliquis 2.5mg BID for 28 days upon discharge for DVT prophylaxis
- Okay for discharge from our perspective. Will need follow up in the office with Dr. Vázquez in 2 weeks.
Subjective Data
Procedure
05/15/2024- Robotic lysis of adhesions, small bowel resection; tap block performed preoperatively by anesthesia
Subjective Data
Date of Service: May 24, 2024
Patient states she is having more flatus and stool. She denies nausea or vomiting. She is less bloated. She is tolerating a diet.
Objective Data
-
Vital Signs
Temp Pulse Resp BP Pulse Ox
98.4 F 99 16 91/55 97
05/24/24 07:30 05/24/24 07:30 05/24/24 07:30 05/24/24 07:30 05/24/24 07:30
Intake & Output
05/23/24 05/24/24 05/25/24
06:59 06:59 06:59
Intake Total 1830 / 1830 1320 / 1320
Balance 1830 / 1830 1320 / 1320
Intake:
Oral fluids 1680 / 1680 1320 / 1320
TPN/PPN 150 / 150
Other:
Number of approximated MODERATE 3 2
amounts of urine
Number of approximated LARGE 2
amounts of urine
Lab Results
05/23/24 05:50
05/22/24 04:54
Physical Exam
-
General: No Acute Distress and AOx3
Abdomen: Soft, Distended (mild) and Non Tender
Skin: Warm and Dry
Incision: Clear, Dry, Intact
--- NOTE | 2024-05-24 11:39 | W.DS.TRANS ---
DC Summary - Skein Dyer
-
Discharge Instructions:
Discharge Diagnosis/Procedures Small bowel adenocarcinoma, small bowel
obstruction, acute blood loss anemia
Diet Regular
Activity No strenuous activity
Additional Activity No lifting over 10lbs (gallon of milk)
Driving Restrictions As prior to admission
Bathing Restrictions OK to Shower
Instructions:
Stand-Alone Forms:
Changes to Home Medications: No
Discharge Medications:
DC Medications w/original date entered in [facility]
albuterol sulfate 2.5 mg/0.5 mL solution for nebulization 5 mg inhalation Q4H Lung/Breathing Issues 05/11/24
fluticasone furoate 200 mcg-vilanterol 25 mcg/dose inhalation powder (Breo Ellipta) 1 inh inhalation DAILY Lung/Breathing Issues 05/11/24
omeprazole 40 mg capsule,delayed release 40 mg PO DAILY Gastrointestinal Issue 05/11/24
ondansetron 4 mg disintegrating tablet 4 mg PO Q8H PRN nausea 05/11/24
sucralfate 1 gram tablet (Carafate) 1 g PO ACHS Gastrointestinal Issue 05/11/24
apixaban 2.5 mg tablet (Eliquis) 2.5 mg PO BID 28 days #56 tabs 05/24/24
Home Medication Changes
Pending Results: No
--- NOTE | 2024-05-24 11:39 | W.PN.HOSP.TC ---
Today's Communication/Plan
-
Discharge
Assessment / Plan
Assessment / Plan
Gen-AAOx3, NAD
HEENT-NC, AT, anicteric, clear oral mm
Neck-supple
CV-reg, no M, +S1/S2
Lungs-clear B/L
Abd-soft, nondistended, minimal tenderness
Ext-no edema
Musculoskeletal-no cyanosis, clubbing
Skin-warm and dry
Neuro-grossly non-focal
Psych-calm, cooperative
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 Path report noted. Surgical margins are clean. 1 out of 4 lymph nodes positive. No signs of metastases in the abdomen on imaging. Will need outpatient CT chest for staging. Discussed with surgical
service. Outpatient oncology follow-up. Discussed with patient.
-Prior history of SBO in 2009 requiring lysis of adhesions. 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
Acute blood loss anemia -Hgb spontaneously improved to 9.1. Suspect GI related blood loss due to surgery, small bowel mass. NSAIDs discontinued.
ADAM - due to volume depletion. ADAM resolved with IV fluids.
Metabolic acidosis -resolved
Hyperkalemia - improved.
Hypophosphatemia�replete prn
Grade A esophagitis/gastritis -noted on EGD, 05/10. Continue Protonix.
Severe protein calorie malnutrition of acute illness - encourage oral intake when able
Abnormal CXR -pneumonia ruled out, patient is afebrile, no respiratory symptoms
Mild intermittent asthma -stable, continue bronchodilators as needed
DVT prophylaxis�subcu Lovenox. Surgical service recommends low-dose Eliquis 2.5 mg twice daily for 19 more days on discharge. Prescription sent to her pharmacy. Discussed with patient.
Full code
Dispo -likely discharge this afternoon if she remains stable as per surgery. Outpatient follow-up.
35 minutes spent in discharge process.
Anticipated Discharge: Today
Subjective/Interval History
-
Date of Service: May 24, 2024
Patient seen and examined. Passing a lot of gas.
Objective Data
-
Vital Signs:
Vital Signs
Temp Pulse Resp BP Pulse Ox
98.4 F 99 16 91/55 97
05/24/24 07:30 05/24/24 07:30 05/24/24 07:30 05/24/24 07:30 05/24/24 07:30
I&O
05/23/24 05/24/24 05/25/24
06:59 06:59 06:59
Intake Total 1829 / 0 1320 / 1320
Balance 1830 / 1830 1320 / 1320
Review of Systems
-
History Source: Patient
All other systems: Reviewed and negative
--- NOTE | 2024-05-24 12:03 | CM ---
Met with patient and her Aunt at the bedside to discuss discharge planning
Aunt will provide transport home
Plan: discharge to home today; no needs
[2024-05-24 15:15] VITALS: BP 110/64
[2024-05-26 02:25] LABS: CA 19-9 46 U/mL (<=35)
== END 2024-05-24 15:48 | disposition home or self-care (01) | DRG 329 ==
LOC: 2 SOUTH 15:56
PROVIDERS: Family Medicine; Nurse Practitioner Family; Physician Assistant; Physician Assistant Medical; Registered Nurse; ADMITTING PHYSICIAN Hospitalist; ATTENDING PHYSICIAN Hospitalist; CONSULT PHYSICIAN Internal Medicine; CONSULT PHYSICIAN Surgery; EMERGENCY PHYSICIAN Emergency Medicine; FAMILY PHYSICIAN Internal Medicine
PROC: 0DB84ZZ Excision of Small Intestine, Percutaneous Endoscopic Approach (ICD-10-PCS; 2024-05-15)
PROC: 0DN84ZZ Release Small Intestine, Percutaneous Endoscopic Approach (ICD-10-PCS; 2024-05-15)
DX: C17.1 Malignant neoplasm of jejunum (principal); E43 Unspecified severe protein-calorie malnutrition; K56.51 Intestinal adhesions [bands], with partial obstruction; D62 Acute posthemorrhagic anemia; E87.20 Acidosis, unspecified; N17.9 Acute kidney failure, unspecified; K56.7 Ileus, unspecified; K91.89 Other postprocedural complications and disorders of digestive system; E87.5 Hyperkalemia; E83.39 Other disorders of phosphorus metabolism; Z68.22 Body mass index [BMI] 22.0-22.9, adult
CPT/HCPCS: 88309; 71045; 72197; 74019; 74022; 74177; 74183; 78226; 80048; 80053; 82378; 82962; 83690; 83735; 83993; 84100; 84134; 84478; 84703; 85025; 85027; 85610; 85730; 86140; 86301; 86850; 86900; 86901; 87324; 87449; 88342; 93005; 94640; 96361; 96374; 96375; 96376; 99285; A9537; A9585; J3480; J7030; Q9967

== ENCOUNTER → 2024-06-22 09:09 | Outpatient (REF) | payer BC, SELFPAY | LOC: PET 09:09 | PROVIDERS: ATTENDING PHYSICIAN Internal Medicine Hematology & Oncology | DX: C17.1 Malignant neoplasm of jejunum (principal) | CPT/HCPCS: 78815; A9552 ==

== ENCOUNTER 2024-06-26 18:30 | Inpatient (IN) | payer BC, SELFPAY ==
[2024-06-21 13:58] VITALS: BMI 22.4
[2024-06-26] VITALS (18 sets, daily range): BP systolic 61–115; BP diastolic 51–78; BMI 22.4; BMI 21.5
[2024-06-26] MEDS: TYLENOL 1000 MG PO (13:39)
[2024-06-26] MEDS: CELEBREX 200 MG PO (13:39)
--- NOTE | 2024-06-26 16:48 | W.IMMPOSTOP ---
Surgical Immed Post Op Note
-
Primary Surgeon: Ervin Vázquez MD
Assisting Surgeon: None
Pre-op Diagnosis: Small bowel cancer
Post-op Diagnosis: Small bowel cancer
Procedure Performed: Ultrasound-guided left internal jugular Mediport insertion
Anesthesia Type: Sedation with local
Specimen / Cultures: None
Estimated Blood Loss: 10 mL
Complications: No complications
Operative Findings: Unable to access the left subclavian vein after 4 attempts; ultrasound-guided left internal jugular access after 1 attempt; catheter tip at the cavoatrial junction using fluoroscopy; easy withdrawal and easy flush of heparinized
saline at end of case
--- NOTE | 2024-06-26 16:55 | OR.RPT ---
Operative Report
Operative Report
DATE OF OPERATION: 06/26/2024
SURGEON: Ervin Vázquez MD
PREOPERATIVE DIAGNOSIS: Stage III small bowel cancer
POSTOPERATIVE DIAGNOSIS: Stage III small bowel cancer
OPERATION: Left internal jugular Mediport insertion under ultrasound guidance
ASSISTANTS:
1. None
ANESTHESIA: MAC w/ local
ESTIMATED BLOOD LOSS: 10 mL
FINDINGS:
1. After placement, the tip of port catheter visualized at level of the cavoatrial junction on fluoroscopy
2. Once sutured in position, port tested with Del Angel needle and there was good withdrawal of blood and instillation of heparinized saline without resistance
SPECIMENS: None
DRAINS: None
COMPLICATIONS: No immediate complications.
INDICATIONS: The patient is a 49-year-old female with stage III small bowel cancer. Infusional chemotherapy was recommended. Therefore, I recommended port placement. The operation was discussed with the patient in detail including risks and
benefits. Risks discussed included, but are not limited to, bleeding, infection, pneumothorax, post-operative malposition or movement of catheter, need for second surgery, DVT/PE, and anesthetic risks. The patient understood and agreed to proceed.
The consent was signed and placed in the chart.
PROCEDURE: Patient was taken to the operating room and placed on the operating table in supine position. Sequential compression devices were placed bilaterally. Sedation was commenced without complication. Bilateral arms were tucked and the head
was tilted toward the right with a shoulder roll in place. The left neck and chest wall area were prepped and draped in a sterile fashion. A time-out was then performed verifying the correct patient, procedure, operative site, positioning, and
special equipment.
The patient was placed in Trendelenburg position. Local anesthetic consisting of 1% lidocaine with epinephrine was used to numb the skin and soft tissue near the angle of the left clavicle. Using bony landmarks as a guide, I passed the needle with
10mL syringe under the left collar bone in the direction of the sternal notch while simultaneously aspirating. After 4 attempts, venous return was not appreciated. Therefore, I transitioned to a left internal jugular access. I set up an ultrasound
and identified the sternocleidomastoid muscle, internal jugular, which was easily compressible, and common carotid artery, which was pulsatile. I mapped out the trajectory of the internal jugular vein along the neck. I advanced the needle with 10mL
syringe under direct ultrasound visualization while simultaneously aspirating and accessed the internal jugular vein. Good venous return was noted. Under fluoroscopic guidance, a guidewire was passed through the needle into the patient down to the
superior vena cava. This went smoothly.
The needle was removed over the guidewire and the skin was slightly enlarged with an 11 blade scalpel. Next, I advanced the dilator and peel-away sheath together over the guidewire into the patient. This went smoothly as well. Next, the guidewire
and inner dilator were removed leaving the outer sheath in place. I advanced the white tubing through the outer sheath into the patient under fluoroscopic guidance to the superior vena cava near the right atrium. Next, the outer sheath was peeled
away while maintaining the white tubing in place.
I injected more 1% lidocaine with epinephrine into the planned subcutaneous port pocket. Using a 15 blade scalpel, I made a 4cm incision over the chest wall. A subcutaneous pocket was created inferiorly to the incision with a combination of Bovie
electrocautery and blunt dissection. There was good hemostasis. The white tubing was connected to the tunneling device and brought through a newly created tunnel to the pocket area, taking care to avoid kinking of the tube. The white tubing was
trimmed, connected to the the port reservoir and secured with the locking mechanism. The port reservoir was accessed with good venous return and flushed with heparinized saline. One last round of fluoroscopy was performed. The tip of the white
tubing was at the level of the cavoatrial junction and there was no kink in the tubing.
The reservoir was then secured to the chest wall within the pocket with two 3-0 Prolene stitches. The port was accessed once more with the Del Angel needle and heparinized saline. The port withdrew and flushed without resistance. The subcutaneous layer
was closed with deep dermal interrupted 3-0 Vicryl and the skin was closed with a running subcuticular 4-0 Vicryl. The remaining local was injected around the subcutaneous pocket, port incision and stab incision. Dermabond was used to dress the port
incision and stab incision.
At this point, the procedure was complete. All sponge, needle and instrument counts were correct. The patient tolerated the procedure well and was transferred to the recovery room in stable condition. A portable chest x-ray was ordered in recovery
to confirm port position and rule-out pneumothorax.
DICTATED BY: Ervin Vázquez MD
[2024-06-26] MEDS: DILAUDID 0.5 MG IV (17:21)
[2024-06-26] MEDS: TORADOL 15 MG IV ×2 (17:52→23:54)
--- NOTE | 2024-06-26 19:39 | W.PN.IRAD.PR ---
Procedure Note
-
Successful left chest tube placement.
--- NOTE | 2024-06-26 20:00 | PTCARENOTE ---
Patient received from IR, AAOX3, tearful, complains of left back pain. NSR on monitor. No edema noted. Left anterior chest tube in place, no air leak, no crepitus. Left lung diminished, pulse ox 100% on 2L. Abdomen soft. Voids. Left chest
wall port with surgical glue. #20 g in right hand, flushed and patent.
--- NOTE | 2024-06-26 20:02 | W.PN.UPDATE ---
Update Note
Progress Note Update
Upon review of the postoperative chest x-ray, there was a left sided pneumothorax with partial collapse of the left lung (about 4cm from the apex of the lung). The patient was saturating well. Her systolic blood pressure was in the 90s with a
normal heart rate. Her main complaint was left-sided chest pain. I discussed with Dr. Davalos of cardiothoracic surgery. He recommended consulting IR for chest tube placement and admission to the hospitalist. I discussed the above with the
patient's , Ray, and with the patient after she recovered from sedation and was awake and alert. I consulted with Dr. Pringle, who will place the chest tube. I spoke with the on-call hospitalist, who will admit her she is okay for a diet
after chest tube placement. She will need pain medicine and DVT prophylaxis. Will obtain CXR in AM.
[2024-06-26] MEDS: NORMOSOL-R/PLASMALYTE-A 1000 IV (20:49)
--- NOTE | 2024-06-26 20:52 | HPS.HSE ---
Family Physician
-
Family Physician: Siobhan Myers
Chief Complaint
-
pneumothorax
History of Present Illness
49-year-old female past medical history of proximal jejunal adenocarcinoma, small bowel obstruction from adenocarcinoma status post prior lysis of adhesions, esophagitis/gastritis, severe protein calorie malnutrition, mild intermittent asthma, who
underwent outpatient left internal jugular Mediport insertion for impending chemotherapy for jejunal adenocarcinoma.
After the procedure patient short of breath and was found to have a large pneumothorax.
IR was consulted for chest tube which has been placed.
Patient complains of pain at the site of port placement. She also complains of pain in her left posterior back. Denies shortness of breath at this time.
She denies smoking alcohol use.
Medical History
Past Medical History
Past Medical History: Reports Other (proximal jejunal adenocarcinoma, small bowel obstruction from adenocarcinoma status post prior lysis of adhesions, esophagitis/gastritis, severe protein calorie malnutrition, mild intermittent asthma)
Past Surgical History: Reports Other ( Sinus surgery, , ectopic , myomectomy, small bowel mass removed,)
Social History
Tobacco: Non-smoker
Alcohol: None
Drug: None
Family History
Family History: Not pertinent
Allergies / Home Medications
Allergies reflects when Allergies were last updated in [employer].
Home Medications with original date entered in [employer]
Allergy/Medication List:
Allergies
Allergy/AdvReac Type Severity Reaction Status Date / Time
spironolactone Allergy 'heart Verified 06/26/24 13:20
races'
Home Medications
albuterol sulfate 2.5 mg/0.5 mL solution for nebulization 5 mg inhalation Q4H Lung/Breathing Issues 05/11/24
fluticasone furoate 200 mcg-vilanterol 25 mcg/dose inhalation powder (Breo Ellipta) 1 inh inhalation DAILY Lung/Breathing Issues 05/11/24
Vitamin D3 1 dose PO DAILY 06/25/24
biotin 1 dose PO DAILY 06/25/24
Review of Systems
-
History Source: Patient
A 12 point ROS was completed and negative except as noted: Yes
Constitutional: Reports No Symptoms
EENT: Reports No Symptoms
Respiratory: Reports No Symptoms
Cardiac: Reports See HPI
Abdomen/GI: Reports See HPI
: Reports No Symptoms
Musculoskeletal: Reports No Symptoms
Skin: Reports No Symptoms
Neurological: Reports No Symptoms
Endocrine: Reports No Symptoms
Hematologic/Lymphatic: Reports No Symptoms
Psych: Reports No Symptoms
Physical Exam
Vital Signs
Vital Signs
Temp Pulse Resp BP Pulse Ox
95.9 F L 78 18 113/78 100
06/26/24 19:50 06/26/24 19:55 06/26/24 19:55 06/26/24 19:55 06/26/24 19:50
Physical Exam
General: Well Developed, Well Nourished and No Apparent Distress
HEENT: NormoCephalic, Moist mucous membranes and Atraumatic
Respiratory: Clear
Cardiac: S1/S2 and Regular Rhythm; No Murmur or Rub
GI: Soft, Non Tender, Non Distended and Normal Bowel Sounds; No Organomegaly
Rectal: Deferred by Provider
Musculoskeletal: No Clubbing, No Cyanosis and No Edema
Skin: No Rash
Neuro: Nonfocal/grossly intact
Data Reviewed
-
Lab Data: Labs Reviewed by me
Old Records: Reviewed
Impression/Plan
-
IMPRESSION:
PLAN:
# Large pneumothorax after left chest wall port insertion
-Chest tube placed by IR today
-Patient on 2 L currently, continue oxygen
-Check chest x-ray tonight and in the a.m.
-IR to follow-up tomorrow regarding status of chest tube
-Continue IV fluids
-Ketorolac, Dilaudid as needed
-Colorectal surgery following
Proximal jejunal adenocarcinoma
History of prior small bowel obstruction from adenocarcinoma status post prior lysis of adhesions
History of esophagitis/gastritis
Severe protein calorie malnutrition
Mild intermittent asthma
-Continue albuterol
Full code
DVT ppx-heparin
Regular diet
[2024-06-26] MEDS: HEPARIN 5000 UNITS SC (23:04)
[2024-06-26] MEDS: NSS 1000 IV (23:04)
[2024-06-27 01:35] VITALS: BP 119/61
[2024-06-27 03:15] VITALS: BP 103/58
[2024-06-27] MEDS: TORADOL 15 MG IV ×3 (06:44→19:32)
[2024-06-27 07:45] VITALS: BP 107/64
[2024-06-27] MEDS: HEPARIN 5000 UNITS SC ×3 (08:54→23:28)
[2024-06-27] MEDS: TYLENOL 1000 MG PO (09:02)
--- NOTE | 2024-06-27 09:33 | W.PN.CRS1 ---
Today's Communication / Plan
-
Continue regular diet
X-ray shows resolution of left pneumothorax
IR for chest tube management
Assessment/Plan
-
POD#1 infusaport placement with left sided pneumothorax with partial collapse of the left lung s/p chest tube
-Continue on a regular diet
-Labs pending
-X-ray this morning shows complete resolution of the left thorax
-IR for determination of left chest tube
Subjective Data
Subjective Data
Date of Service: June 27, 2024
Patient states she has left upper quadrant back pain that is worse today. Her left upper quadrant chest pain has improved. Otherwise she is tolerating diet.
Objective Data
-
Vital Signs
Temp Pulse Resp BP Pulse Ox
98.0 F 78 16 107/64 100
06/27/24 07:45 06/27/24 07:54 06/27/24 07:45 06/27/24 07:45 06/27/24 07:54
Intake & Output
06/26/24 06/27/24 06/28/24
06:59 06:59 06:59
Intake Total 1360 / 1360
Balance 1360 / 1360
Intake:
Oral fluids 360 / 360
IV fluids (Total) 1000 / 1000
Normosol 200 / 200
IV piggybacks 0 / 0
Other:
Number of approximated MODERATE 2
amounts of urine
Physical Exam
-
General: No Acute Distress and AOx3
Chest: Other (Left upper quadrant chest pain, left upper quadrant back pain)
Abdomen: Soft, Non Distended and Non Tender
Skin: Warm and Dry
Wound: No Signs of Infection
Incision: Clear, Dry, Intact
--- NOTE | 2024-06-27 10:25 | W.PN.HOSP.TC ---
Addendum entered and electronically signed by Sotero Yang MD 06/27/24 11:04:
notified by CRS/IR department for plan of water seal tonight, AM Xray and possible removal in AM
Original Note:
Today's Communication/Plan
-
IR managing CT; will d/w clamping, with repeat imaging and also possible removal with repeat imaging to facilitate dc possibly later today.
Assessment / Plan
Assessment / Plan
Assessment:
Large pneumothorax after left chest wall port insertion
- s/p CT tube placement 06/26
- serial X-rays with improvement
- IR managing CT; will d/w clamping, with repeat imaging and also possible removal with repeat imaging to facilitate dc possibly later today.
Acute hypoxic respiratory insufficiency on 2L
- wean O2 - currently on RA
Proximal jejunal adenocarcinoma
- s/p SBR 05/15, path showing solitary LN involvement per patient, PET clear. OP f/u with [facility] For adjuvant chemo
History of prior small bowel obstruction from adenocarcinoma status post prior lysis of adhesions
History of esophagitis/gastritis
Severe protein calorie malnutrition
Mild intermittent asthma
- continue albuterol
DVT ppx: SC Heparin
Code: Full
Anticipated Discharge: Today
Subjective/Interval History
-
Date of Service: June 27, 2024
denies any new complaints
Objective Data
-
Labs:
Laboratory Results
06/27/24
08:13
WBC Pending
Hgb Pending
Hct Pending
Plt Count Pending
Sodium Pending
Potassium Pending
Chloride Pending
Carbon Dioxide Pending
BUN Pending
Creatinine Pending
Glucose Pending
Calcium Pending
Vital Signs:
Vital Signs
Temp Pulse Resp BP Pulse Ox
98.0 F 78 16 107/64 100
06/27/24 07:45 06/27/24 07:54 06/27/24 07:45 06/27/24 07:45 06/27/24 07:54
I&O
06/26/24 06/27/24 06/28/24
06:59 06:59 06:59
Intake Total 1360 / 1360
Balance 1360 / 1360
Physical Exam
-
General: No Apparent Distress
HEENT: Normocephalic and Atraumatic
Respiratory: Clear to Auscultation and Chest Tubes; Negative Wheezes
Cardiac: Regular Rhythm and S1/S2
GI: Soft
Musculoskeletal: No Edema
Neuro: AO x 3
Hematologic / Lymphatic: No Lymphadenopathy
Psych: Calm
Data Reviewed
-
Total Time Spent with Patient (in minutes): 42
Labs: Labs Reviewed by me
--- NOTE | 2024-06-27 11:21 | CM ---
Reviewed the chart notes and spoke with the patient at the bedside. The patient resides with her spouse in a three story home with two steps to enter. The patient reports no DME/SNF in the past, but has had VN. Agency unknown. The patient
[facility] The patient anticipates being discharged to home with no needs. Patient's spouse will provide transportation. CM continues to be available to patient/family and is monitoring
medical plan for needs at discharge.
Plan: Discharge to home when medically stable.
[2024-06-27 12:10] VITALS: BP 108/61
[2024-06-27] MEDS: NSS IV (12:51)
[2024-06-27 14:32] LABS: Hematocrit 33.7 % (37.0-47.0); Hemoglobin 10.7 g/dL (12.0-16.0); Mean Corp Hgb Conc. 31.8 g/dL (33.0-37.0); Mean Corpuscular Hgb 32.7 pg (27.0-31.0); Mean Corpuscular Volume 103.1 fL (81.0-99.0); Mean Platelet Volume 11.5 fL (7.4-10.4); Platelet Count 211 10^3/uL (130-400); Red Blood Cell Count 3.27 10^6/uL (4.20-5.40); Red Cell Dist. Width 12.4 % (11.5-14.5); White Blood Cell Count 6.6 10^3/uL (4.8-10.8)
[2024-06-27 15:21] LABS: Blood Urea Nitrogen 17 mg/dl (7-17); Calcium 9.4 mg/dl (8.4-10.2); Carbon Dioxide 23 mmol/L (22-30); Chloride 107 mmol/L (98-107); Estimated Creatinine Clearance 97 ml/min; Glucose 100 mg/dl (70-99); Potassium 4.1 mmol/L (3.5-5.1); Sodium 142 mmol/L (135-145); eGFR > 60.00
[2024-06-27 19:50] VITALS: BP 122/62
[2024-06-27 23:30] VITALS: BP 119/61
[2024-06-28 03:18] VITALS: BP 119/71
[2024-06-28 07:40] VITALS: BP 114/74
[2024-06-28] MEDS: HEPARIN 5000 UNITS SC ×2 (08:18→15:51)
[2024-06-28] MEDS: TORADOL 15 MG IV ×2 (08:22→15:50)
--- NOTE | 2024-06-28 09:42 | W.PN.HOSP.TC ---
Today's Communication/Plan
-
dc today if successful clamp trial and removal of CT performed and surveillance Xrays show no PTX. d/w IR and CRS.
Assessment / Plan
Assessment / Plan
Assessment:
Large pneumothorax after left chest wall port insertion
- s/p CT tube placement 06/26
- serial X-rays with improvement
- s/p water seal, repeat Imaging without PTX. Will clamp now and repeat XR in 2 hours. Hopefully remove later today for DC home. d/w IR.
Acute hypoxic respiratory insufficiency on 2L
- wean O2 - currently on RA
Proximal jejunal adenocarcinoma
- s/p SBR 05/15, path showing solitary LN involvement per patient, PET clear. OP f/u with [facility] For adjuvant chemo
History of prior small bowel obstruction from adenocarcinoma status post prior lysis of adhesions
History of esophagitis/gastritis
Severe protein calorie malnutrition
Mild intermittent asthma
- continue albuterol
DVT ppx: SC Heparin
Code: Full
More than 30 minutes spent in discharge including
Final examination of the patient
Summarizing hospital stay
Instructions for continuing care to all relevant caregivers
Preparation of discharge records, prescriptions, and referral forms
Total time spent (in minutes): 41
Anticipated Discharge: Today
Subjective/Interval History
-
Date of Service: June 28, 2024
denies any new complaints at present
CT clamped this AM
Objective Data
-
Labs:
Laboratory Results
06/28/24
06:00
WBC Pending
Hgb Pending
Hct Pending
Plt Count Pending
Sodium Pending
Potassium Pending
Chloride Pending
Carbon Dioxide Pending
BUN Pending
Creatinine Pending
Glucose Pending
Calcium Pending
Vital Signs:
Vital Signs
Temp Pulse Resp BP Pulse Ox
98.4 F 77 16 114/74 97
06/28/24 07:40 06/28/24 07:40 06/28/24 07:40 06/28/24 07:40 06/28/24 07:40
I&O
06/27/24 06/28/24 06/29/24
06:59 06:59 06:59
Intake Total 1360 / 1360 1440 / 1440
Output Total
Balance 1360 / 1360 1439 / 1439
Physical Exam
-
General: No Apparent Distress
HEENT: Normocephalic and Atraumatic
Respiratory: Negative Wheezes
Cardiac: Regular Rhythm and S1/S2
GI: Soft and Nontender
Musculoskeletal: No Edema
Neuro: AO x 3
Hematologic / Lymphatic: No Lymphadenopathy
Psych: Calm
Data Reviewed
-
Total Time Spent with Patient (in minutes): 42
Labs: Labs Reviewed by me
--- NOTE | 2024-06-28 09:45 | W.DS.TRANS ---
DC Summary - [employer]
-
Discharge Instructions:
Sleep Apnea Risk Low
Discharge Diagnosis/Procedures L pneumothorax after PORT placement, required
chest tube to resolve
Diet Regular
Activity As tolerated
Bathing Restrictions None
Instructions:
Stand-Alone Forms:
Changes to Home Medications: No
Discharge Medications:
DC Medications w/original date entered in [employer]
albuterol sulfate 2.5 mg/0.5 mL solution for nebulization 5 mg inhalation Q4H Lung/Breathing Issues 05/11/24
fluticasone furoate 200 mcg-vilanterol 25 mcg/dose inhalation powder (Breo Ellipta) 1 inh inhalation DAILY Lung/Breathing Issues 05/11/24
Vitamin D3 1 dose PO DAILY Supplement 06/25/24
biotin 1 dose PO DAILY Supplement 06/25/24
Home Medication Changes
Pending Results: No
Total time spent discharging patient (in min): 41
--- NOTE | 2024-06-28 09:56 | W.PN.CRS1 ---
Today's Communication / Plan
-
Chest tube per IR
Okay for discharge from our standpoint if tube removed
Assessment/Plan
-
POD# 2 infusaport placement with left sided pneumothorax with partial collapse of the left lung s/p chest tube
-Continue on a regular diet
-Labs pending
-Okay to DC telemetry
-X-ray this morning shows again complete resolution of the left thorax
-Chest tube now clamped. Repeat x-ray for 12 PM. Removal by IR. Okay for discharge later today when tube is removed from our standpoint.
Subjective Data
Subjective Data
Date of Service: June 28, 2024
Patient states she feels well today. She still has left upper quadrant back pain but it is improving. She has been tolerating diet. She is ready to go home.
Objective Data
-
Vital Signs
Temp Pulse Resp BP Pulse Ox
98.4 F 77 16 114/74 97
06/28/24 07:40 06/28/24 07:40 06/28/24 07:40 06/28/24 07:40 06/28/24 07:40
Intake & Output
06/27/24 06/28/24 06/29/24
06:59 06:59 06:59
Intake Total 1360 / 1360 1440 / 1440
Output Total
Balance 1360 / 1360 1439 / 1439
Intake:
Oral fluids 360 / 360 1440 / 1440
IV fluids (Total) 1000 / 1000
Normosol 200 / 200
IV piggybacks 0 / 0
Output:
CT Output (Total)
Left Upper Anterior
Other:
Number of approximated MODERATE 2 3
amounts of urine
Physical Exam
-
General: No Acute Distress and AOx3
Abdomen: Soft, Non Distended and Non Tender
Incision: Clear, Dry, Intact
--- NOTE | 2024-06-28 10:03 | CM ---
Reviewed the chart notes. Patient to be discharged to home today. Patient's spouse will provide transportation.
Plan: Discharge to home today.
[2024-06-28 11:04] LABS: Hematocrit 35.8 % (37.0-47.0); Hemoglobin 11.3 g/dL (12.0-16.0); Mean Corp Hgb Conc. 31.6 g/dL (33.0-37.0); Mean Corpuscular Hgb 31.4 pg (27.0-31.0); Mean Corpuscular Volume 99.4 fL (81.0-99.0); Mean Platelet Volume 11.5 fL (7.4-10.4); Platelet Count 241 10^3/uL (130-400); Red Cell Dist. Width 12.9 % (11.5-14.5); White Blood Cell Count 4.4 10^3/uL (4.8-10.8)
[2024-06-28 11:40] VITALS: BP 106/64
[2024-06-28 11:51] LABS: Blood Urea Nitrogen 10 mg/dl (7-17); Calcium 9.6 mg/dl (8.4-10.2); Carbon Dioxide 25 mmol/L (22-30); Chloride 106 mmol/L (98-107); Estimated Creatinine Clearance 97 ml/min; Glucose 88 mg/dl (70-99); Potassium 4.2 mmol/L (3.5-5.1); Sodium 145 mmol/L (135-145); eGFR > 60.00
[2024-06-28 16:07] VITALS: BP 106/67
== END 2024-06-28 18:30 | disposition home or self-care (01) | DRG 166 ==
LOC: 2 SOUTH 18:30
PROVIDERS: Radiology Diagnostic Radiology; Surgery; ADMITTING PHYSICIAN Hospitalist; ATTENDING PHYSICIAN Internal Medicine; FAMILY PHYSICIAN Internal Medicine
PROC: 02HV33Z Insertion of Infusion Device into Superior Vena Cava, Percutaneous Approach (ICD-10-PCS; 2024-06-26)
PROC: 0W9B30Z Drainage of Left Pleural Cavity with Drainage Device, Percutaneous Approach (ICD-10-PCS; 2024-06-26)
PROC: 0JH60WZ Insertion of Totally Implantable Vascular Access Device into Chest Subcutaneous Tissue and Fascia, Open Approach (ICD-10-PCS; 2024-06-26)
DX: J95.811 Postprocedural pneumothorax (principal); E43 Unspecified severe protein-calorie malnutrition; C17.9 Malignant neoplasm of small intestine, unspecified; J45.20 Mild intermittent asthma, uncomplicated; Z68.21 Body mass index [BMI] 21.0-21.9, adult; R09.02 Hypoxemia; R06.89 Other abnormalities of breathing
CPT/HCPCS: 32557; 36415; 71045; 76000; 80048; 85027; 93005; C1788

== ENCOUNTER → 2024-11-21 09:46 | Outpatient (REF) | payer BC, SELFPAY | LOC: RAD 09:46 | PROVIDERS: ATTENDING PHYSICIAN Surgery | DX: R10.84 Generalized abdominal pain (principal); Z90.49 Acquired absence of other specified parts of digestive tract | CPT/HCPCS: 74177; Q9967 ==

== ENCOUNTER 2025-02-28 06:35 | Day surgery (SDC) | payer BC, SELFPAY | END 2025-02-28 10:13 | disposition home or self-care (01) | LOC: GI 06:35 | PROVIDERS: ATTENDING PHYSICIAN Internal Medicine | DX: Z12.11 Encounter for screening for malignant neoplasm of colon (principal); K64.8 Other hemorrhoids; K57.30 Diverticulosis of large intestine without perforation or abscess without bleeding; R63.4 Abnormal weight loss; R11.2 Nausea with vomiting, unspecified; K31.7 Polyp of stomach and duodenum; K31.89 Other diseases of stomach and duodenum | CPT/HCPCS: 43239; G0121; 88305; 88342 ==

== ENCOUNTER 2025-05-09 14:29 | Inpatient (IN) | payer BC, SELFPAY ==
[2025-05-09 08:56] VITALS: BP 135/91
--- NOTE | 2025-05-09 09:12 | ED.GENMED ---
History of Present Illness
<DUY Duncan Last Filed: 05/09/25 14:08>
General
Chief Complaint: Abdominal Symptoms
Source: patient
Exam Limitations: none
Time Seen by Provider: 05/09/25 09:02
History of Present Illness
History of Present Illness:
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
associated vomiting. This started yesterday. The pain does not radiate to the back. She does not drink alcohol. She did move her bowels yesterday. No fevers. No chest pain or shortness of breath. No other complaints at this time
Past History
<DUY Duncan Last Filed: 05/09/25 14:08>
Past History
ED Past Medical History: Other (Asthma, recent miscarriage 2 weeks ago)
Social History
Tobacco: Non-smoker
Alcohol: None
Family History
Family History: Other (Mother with history of Chiari malformation with decompression)
Phy Exam
<DUY Duncan Last Filed: 05/09/25 14:08>
Physical Exam
Physical Exam:
General: Well-appearing female in no acute distress HEENT: Normocephalic atraumatic
Heart: Regular rate and rhythm
Lungs: Clear no wheeze
Abdomen is tender to the mid abdomen mild guarding mildly distended
Extremities: No cyanosis
Course
<DUY Duncan Last Filed: 05/09/25 14:08>
Orders/Labs/Results
Orders:
Orders
05/09/25 09:10
Ketorolac [Toradol] 15 mg IV NOW STA
Ondansetron Injectable [Zofran] 4 mg IV NOW STA
05/09/25 09:14
0.9% Sodium Chloride 1000 ml [Nss] 1,000 ml IV BOLUS
05/09/25 09:34
CT Abd/pel W Iv And Oral Contr Urgent
Comment:
Reason For Exam: abdominal pain
Iohexol [Omnipaque] See Protocol PO NOW STA
05/09/25 09:35
Complete Blood Count/With Diff Urgent
Comprehensive Metabolic Panel Urgent
Lipase Urgent
05/09/25 Lunch
NPO
Allow oral meds: Yes
NPO Except Meds: Yes
Allow clear liquids: Sips of Clears
NPO with Ice Chips: Yes
Sips of clear liquids: Yes
05/09/25 14:01
Admit/Transfer Patient As Directed
Co-Sign Provider:
Level of Care: Inpatient admission
Assign to:: Medical/Surgical
Physician / Group: Ervin Vázquez
Diagnosis: SBO
Reason for Hospitalization: SBO
Expected length of stay greater than two midnights?: Yes
ELOS- Estimated Length of Stay in days: 5
I certify the patient meets the requirements for IP care: Yes
PRN Pain Medication Management As Directed
May give lesser potent ordered pain med per pt: Yes
preference::
Protocol:: Medication orders for pain may be administered in a
manner that supports deferring to patient preference
when the pt is:
- Requesting an ordered lesser potent pain medication.
Least to most potent pain medications are defined
as: acetaminophen < NSAID < tramadol < opioids
(morphine, oxycodone, hydromorphone).
- Requesting a lesser dose of the same medication IF
ORDERED.
- Requesting a less intrusive route of administration
if both routes are prescribed by the provider (PO <
IV).
05/09/25 14:03
Code Status As Directed
Resuscitation Status: Full Code
05/09/25 14:06
Activity As Directed
Activity Level: Out of Bed- Ad Linnea
Anti-embolism (YAKOV) Hose As Directed
Type: Knee high
Intake/ Output As Directed
Frequency: Per unit guidelines
Okay to Shower As Directed
Pneumatic Compression Sleeves As Directed
Type: Knee high
Rx Incentive Spirometry [RESP] Routine
Frequency: q1h while awake
# of times per hour: 10
DX Deep Vein Thrombosis Video Routine
05/09/25 14:28
Benzocaine 20% [Hurricaine Franklin] See Dose Instructions TOPICAL NOW STA
NG Tube [Gastrointestinal Tubes] As Directed
To suction?: Yes
Type of suction: Continuous- 80 mmHg
05/09/25 14:29
Phenol 1.4% Franklin [Chloraseptic/Sore Throat Franklin] See Dose Instructions PO Q2HPRN PRN
05/10/25 06:00
Basic Metabolic Panel IN AM
Abnormal Lab Results
05/09/25
09:35
MCH 32.3 H pg
(27.0-31.0)
MPV 10.9 H fL
(7.4-10.4)
Absolute Lymphs (auto) 0.7 L 10^3/uL
(1.2-3.4)
Neutrophils % 82.6 H %
(42.2-75.2)
Lymphocytes % 12.2 L %
(20.5-51.1)
BUN 23 H mg/dl
(7-17)
Glucose 113 H mg/dl
(70-99)
Calcium 10.3 H mg/dl
(8.4-10.2)
Total Bilirubin 2.3 H mg/dl
(0.2-1.3)
AST 52 H U/L
(14-36)
ALT 81 H U/L
(0-35)
Alkaline Phosphatase 193 H U/L
(38-126)
Total Protein 8.3 H g/dl
(6.3-8.2)
Albumin 5.1 H g/dl
(3.5-5.0)
05/09/25 09:35
05/09/25 09:35
Vital Signs
Initial and Last Documented VS:
Initial Vital Signs
Temp Pulse Resp BP Pulse Ox
98.2 F 119 16 135/91 98
05/09/25 08:56 05/09/25 08:56 05/09/25 08:56 05/09/25 08:56 05/09/25 08:56
Last Documented Vital Signs
Temp Pulse Resp BP Pulse Ox
98.2 F 103 16 127/75 98
05/09/25 08:56 05/09/25 13:33 05/09/25 13:33 05/09/25 13:33 05/09/25 13:33
<Leroy Salinas, DO - Last Filed: 05/09/25 14:50>
Orders/Labs/Results
Orders:
Orders
05/09/25 09:10
Ketorolac [Toradol] 15 mg IV NOW STA
Ondansetron Injectable [Zofran] 4 mg IV NOW STA
05/09/25 09:14
0.9% Sodium Chloride 1000 ml [Nss] 1,000 ml IV BOLUS
05/09/25 09:34
CT Abd/pel W Iv And Oral Contr Urgent
Comment:
Reason For Exam: abdominal pain
Iohexol [Omnipaque] See Protocol PO NOW STA
05/09/25 09:35
Complete Blood Count/With Diff Urgent
Comprehensive Metabolic Panel Urgent
Lipase Urgent
05/09/25 Lunch
NPO
Allow oral meds: Yes
NPO Except Meds: Yes
Allow clear liquids: Sips of Clears
NPO with Ice Chips: Yes
Sips of clear liquids: Yes
05/09/25 14:01
Admit/Transfer Patient As Directed
Co-Sign Provider:
Level of Care: Inpatient admission
Assign to:: Medical/Surgical
Physician / Group: Ervin Vázquez
Diagnosis: SBO
Reason for Hospitalization: SBO
Expected length of stay greater than two midnights?: Yes
ELOS- Estimated Length of Stay in days: 5
I certify the patient meets the requirements for IP care: Yes
PRN Pain Medication Management As Directed
May give lesser potent ordered pain med per pt: Yes
preference::
Protocol:: Medication orders for pain may be administered in a
manner that supports deferring to patient preference
when the pt is:
- Requesting an ordered lesser potent pain medication.
Least to most potent pain medications are defined
as: acetaminophen < NSAID < tramadol < opioids
(morphine, oxycodone, hydromorphone).
- Requesting a lesser dose of the same medication IF
ORDERED.
- Requesting a less intrusive route of administration
if both routes are prescribed by the provider (PO <
IV).
05/09/25 14:03
Code Status As Directed
Resuscitation Status: Full Code
05/09/25 14:06
Activity As Directed
Activity Level: Out of Bed- Ad Linnea
Anti-embolism (YAKOV) Hose As Directed
Type: Knee high
Intake/ Output As Directed
Frequency: Per unit guidelines
Okay to Shower As Directed
Pneumatic Compression Sleeves As Directed
Type: Knee high
Rx Incentive Spirometry [RESP] Routine
Frequency: q1h while awake
# of times per hour: 10
DX Deep Vein Thrombosis Video Routine
05/09/25 14:28
Benzocaine 20% [Hurricaine Franklin] See Dose Instructions TOPICAL NOW STA
NG Tube [Gastrointestinal Tubes] As Directed
To suction?: Yes
Type of suction: Continuous- 80 mmHg
05/09/25 14:29
Phenol 1.4% Franklin [Chloraseptic/Sore Throat Franklin] See Dose Instructions PO Q2HPRN PRN
05/10/25 06:00
Basic Metabolic Panel IN AM
Abnormal Lab Results
05/09/25
09:35
MCH 32.3 H pg
(27.0-31.0)
MPV 10.9 H fL
(7.4-10.4)
Absolute Lymphs (auto) 0.7 L 10^3/uL
(1.2-3.4)
Neutrophils % 82.6 H %
(42.2-75.2)
Lymphocytes % 12.2 L %
(20.5-51.1)
BUN 23 H mg/dl
(7-17)
Glucose 113 H mg/dl
(70-99)
Calcium 10.3 H mg/dl
(8.4-10.2)
Total Bilirubin 2.3 H mg/dl
(0.2-1.3)
AST 52 H U/L
(14-36)
ALT 81 H U/L
(0-35)
Alkaline Phosphatase 193 H U/L
(38-126)
Total Protein 8.3 H g/dl
(6.3-8.2)
Albumin 5.1 H g/dl
(3.5-5.0)
05/09/25 09:35
05/09/25 09:35
Vital Signs
Initial and Last Documented VS:
Initial Vital Signs
Temp Pulse Resp BP Pulse Ox
98.2 F 119 16 135/91 98
05/09/25 08:56 05/09/25 08:56 05/09/25 08:56 05/09/25 08:56 05/09/25 08:56
Last Documented Vital Signs
Temp Pulse Resp BP Pulse Ox
98.2 F 103 16 127/75 98
05/09/25 08:56 05/09/25 13:33 05/09/25 13:33 05/09/25 13:33 05/09/25 13:33
<Stevie Payton PA-C - Last Filed: 05/09/25 14:08>
MDM/Problems Addressed
Differential Diagnosis Includes:
Abdominal pain with history noted above. Consider small bowel obstruction versus pancreatitis versus gastritis versus biliary colic
Patient in significant pain and nauseous unable to tolerate p.o. contrast. Vascular access team notified to access port. Will check labs administer Toradol and Zofran
<Stevie Payton PA-C - Last Filed: 05/09/25 14:08>
*Pulse Oximetry
SaO2: 98
Oxygen Mode of Delivery: Room air
Patient hypoxic: no
*Critical Care Note
Total Time (30-74mins, 75-104mins- exclusive of procedures): Not Applicable
<Stevie Payton PA-C - Last Filed: 05/09/25 14:08>
Update Note
Update Note:
CT consistent with small bowel obstruction. Discussed findings with patient and . Also discussed findings with colorectal who was in to see the patient. They will admit the patient for further treatment
ED Attending Note
<Stevie Payton PA-C - Last Filed: 05/09/25 14:08>
-
Portions of this chart may have been created with voice recognition software.� Occasional wrong word or��sound alike� substitutions may have occurred due to the inherent limitations of voice recognition software.
<Leroy Salinas DO - Last Filed: 05/09/25 14:50>
ED Attending Note
Patient seen and examined by attending physician: Yes
I performed the substantive portion of visit, reviewed & personally made and approve the management plan that is documented in note by myself or AISHWARYA.: Yes
ED Attending Note:
I have seen and evaluated the patient with a [id number] encounter. I have spoken to the advance practicer provider and involved in the medical history, the physical exam, medical decision making.
Evaluation and management service: agree unless noted differently below.
Results interpretation: agree unless noted differently below.
Focused HPI: 49-year-old female presenting with abdominal pain and nausea. Patient has a history of bowel cancer that has been resected. Patient known to the colorectal surgical team
Physical exam: Mildly uncomfortable and mildly dry mucous membranes
Medical Decision Making: CT concerning for small bowel obstruction. Colorectal surgery involved in the case and believe it could be adhesions related. Per colorectal, will attempt to replace NG tube
Discharge Plan
Departure
Patient Disposition: Admit
Date of Disposition: 05/09/25
Time of Disposition: 14:07
Presentation/result/management discussed w/ accepting MD/: Gurpreet
Discharge Problem:
small bowel obstruction
Interventions
Interventions:
*Risk Screen - Suicide Last Done: 05/09/25 08:56
*General Assessment Last Done: 05/09/25 10:23
*Neglect/Abuse Screening Last Done: 05/09/25 08:56
*ED- Fall Risk Assessment Last Done: 05/09/25 10:23
*ED COVID-19 Vaccine History Last Done: 05/09/25 10:23
MS-Bvzpmd-Hpjlhmhsux Assessment Last Done: 05/09/25 10:23
[2025-05-09] MEDS: NSS 1000 IV (09:41)
[2025-05-09] MEDS: ZOFRAN 4 MG IV (09:42)
[2025-05-09] MEDS: OMNIPAQUE 50 ML PO (09:42)
[2025-05-09] MEDS: TORADOL 15 MG IV ×3 (09:42→23:38)
[2025-05-09 09:52] LABS: Hematocrit 41.4 % (37.0-47.0); Hemoglobin 13.9 g/dL (12.0-16.0); Mean Corp Hgb Conc. 33.6 g/dL (33.0-37.0); Mean Corpuscular Volume 96.3 fL (81.0-99.0); Nucleated Red Blood Cells % 0 %; Platelet Count 166 10^3/uL (130-400); Red Cell Dist. Width 12.1 % (11.5-14.5)
[2025-05-09 10:04] LABS: ALT (SGPT) 81 U/L (0-35); AST (SGOT) 52 U/L (14-36); Albumin 5.1 g/dl (3.5-5.0); Alkaline Phosphatase 193 U/L (38-126); Blood Urea Nitrogen 23 mg/dl (7-17); Calcium 10.3 mg/dl (8.4-10.2); Carbon Dioxide 25 mmol/L (22-30); Chloride 103 mmol/L (98-107); Glucose 113 mg/dl (70-99); Lipase 98 U/L (23-300); Potassium 4.0 mmol/L (3.5-5.1); Sodium 139 mmol/L (135-145); Total Protein 8.3 g/dl (6.3-8.2); eGFR > 60.00
--- NOTE | 2025-05-09 12:25 | CON.CRS ---
Consultation
-
Date/Time Consultation Requested: 05/09/2025, 9:32
Date/Time Consultation Performed: 05/09/2025, 10:30
Requesting Provider: Stevie Villalta
Performing Provider: Ervin Vázquez MD
Reason for Consultation: abdominal pain
Medical History
-
Chief Complaint: abdominal pain
History of Present Illness:
Please note: After writing this consult from the ER, patient is now being admitted to our service. This will serve as an H+P.
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 Vázquez, status post chemotherapy completed December 2024, presents to the ER complaining of abdominal pain since 1 PM
yesterday. She states that the pain felt like a stabbing sensation that would occur in waves almost like labor pain. She was up all night with a 10 out of 10 pain and vomited around 3 AM. The vomit itself was bilious in nature. Her last bowel
movement was yesterday and was normal. Denies bleeding. She has flatus today. She denies fever but noted that during the waves of pain she had chills. She currently is little nauseous but not much now. She is urinating without difficulty. She
had a Toradol in the ER which made her pain to a 0-1 out of 10. She had a blood work 3 weeks ago and states that 'things were going in the right direction' per her primary care physician. She had an upper endoscopy and colonoscopy by Dr. Gayle
in February 2025 and there were no acute findings. In the ER her WBC is 5.6. Given her past medical history, we have been consulted for further surgical opinion.
Past Medical History
Past Medical History: Asthma, Cancer (Adenocarcinoma of proximal jejunum), GERD and Other (chiari malformation)
Past Surgical History: Other (Small bowel resection by Dr. Vázquez on 05/15/2024. , RAL myomectomy in 2009, ex lap with HAY in 2009, port placement s/p chest tube (secondary to pneumothorax))
Social History
Tobacco: Non-Smoker
Family History
Family History: Reviewed & Not Pertinent
Allergies / Home Medications
Allergy/AdvReac Type Severity Reaction Status Date / Time
spironolactone Allergy 'heart Verified 05/09/25 08:59
races'
�Medication �Instructions �Recorded �Confirmed �Type
fluticasone furoate 200 1 inh inhalation R DAILY 05/11/24 05/09/25 History
mcg-vilanterol 25 mcg/dose Lung/Breathing Issues
inhalation powder (Breo Ellipta)
biotin 1 mg capsule 1 mg PO DAILY Supplement ##0 06/25/24 05/09/25 History
cholecalciferol (vitamin D3) 25 25 mcg PO DAILY Supplement ##0 06/25/24 05/09/25 History
mcg (1,000 unit) tablet (Vitamin
D3)
omeprazole 40 mg capsule,delayed 40 mg PO DAILY 05/09/25 05/09/25 History
release
Review of Systems
-
History Source: Patient
Abdomen/GI: Abdominal Pain, Nausea and Vomiting
A 10 point review of systems was completed, and was negative except as per HPI.
Physical Exam
Vital Signs
Temp 98.2 F 05/09/25 08:56
Pulse 119 05/09/25 08:56
Resp Rate 16 05/09/25 08:56
Blood pressure 135/91 05/09/25 08:56
SaO2 98 05/09/25 09:14
Lab Results / Allergies
05/09/25 09:35
05/09/25 09:35
WBC 5.6 10^3/uL (4.8-10.8) 05/09/25 09:35
Hgb 13.9 g/dL (12.0-16.0) 05/09/25 09:35
Hct 41.4 % (37.0-47.0) 09/04/25 09:35
Plt Count 166 10^3/uL (130-400) 05/09/25 09:35
Abs Immat Gran (auto) 0.0 10^3/uL (0-0.05) 05/09/25 09:35
Neutrophils % 82.6 % (42.2-75.2) H 05/09/25 09:35
Allergy/AdvReac Type Severity Reaction Status Date / Time
spironolactone Allergy 'heart Verified 05/09/25 08:59
races'
Physical Exam
General: Well Developed, Well Nourished and No Apparent Distress
GI: Soft, Tender (Very mild 2 cm above umbilicus) and Distended (mild)
Neuro: AO x 3
Psych: Calm
Data Reviewed
-
Labs: Labs Reviewed by me, Discussed with Physician and Discussed with Patient
Old Records: Reviewed
Assessment / Plan
-
Assessment: 49-year-old female status post partial small bowel resection almost 1 year ago secondary to an adenocarcinoma of the proximal jejunum and recently completed chemo presents to the ER with 10 out of 10 abdominal pain, vomiting, and some
mild abdominal distention
Plan:
- Remain n.p.o. with IV fluids
- Pain control
- CT p.o. and IV contrast abdomen and pelvis
- Plans to follow-up with CT
- Discussed with patient and at bedside.
[2025-05-09 13:33] VITALS: BP 127/75
[2025-05-09] MEDS: VERSED 1 MG IV (15:00)
[2025-05-09] MEDS: NEO-SYNEPHRINE 0.5% NASAL SPRAY 1 SPRAY NASAL (15:03)
[2025-05-09] MEDS: HURRICAINE SPRAY 1 APPLIC TOPICAL (15:03)
--- NOTE | 2025-05-09 16:09 | CM ---
Met with patient and at bedside in the ED
Pharmacy verified: [facility] @ [address] [place] [address]
Lives w/ and 13 yr old daughter; multilevel home; 2 steps to enter; 12 steps between floors; railings present
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
DME: [employer]
No SNF utilization history
Home Infusion w/ [facility] (chemo completed in December 2024)
Outpatient PT for neuropathy
will provide transport home
Discharge plan to be determined pending hospital course; case management will monitor for needs/services
[2025-05-09 17:05] VITALS: BP 127/85
[2025-05-09 17:16] VITALS: BMI 22.7
[2025-05-09] MEDS: NORMOSOL-R/PLASMALYTE-A 1000 IV (18:27)
[2025-05-09] MEDS: LOVENOX 40 MG SC (21:07)
[2025-05-09] MEDS: CHLORASEPTIC/SORE THROAT SPRAY 1 SPRAY PO (21:09)
[2025-05-09 23:00] VITALS: BP 136/74
[2025-05-09] MEDS: FLUSH (NSS) 2 FLUSH IV (23:39)
[2025-05-10] VITALS (13 sets, daily range): BP systolic 99–128; BP diastolic 60–79
[2025-05-10] MEDS: NORMOSOL-R/PLASMALYTE-A 1000 IV ×2 (03:04→19:19)
[2025-05-10 06:45] LABS: Hematocrit 37.6 % (37.0-47.0); Hemoglobin 12.5 g/dL (12.0-16.0); Mean Corp Hgb Conc. 33.2 g/dL (33.0-37.0); Mean Corpuscular Volume 97.4 fL (81.0-99.0); Nucleated Red Blood Cells % 0 %; Platelet Count 132 10^3/uL (130-400); Red Cell Dist. Width 12.3 % (11.5-14.5)
[2025-05-10 06:46] LABS: Blood Urea Nitrogen 30 mg/dl (7-17); Calcium 9.3 mg/dl (8.4-10.2); Carbon Dioxide 27 mmol/L (22-30); Chloride 102 mmol/L (98-107); Estimated Creatinine Clearance 73 ml/min; Glucose 121 mg/dl (70-99); Potassium 3.5 mmol/L (3.5-5.1); Sodium 139 mmol/L (135-145); eGFR > 60.00
[2025-05-10] MEDS: NSS (PRESERVATIVE FREE) 10 ML IV (08:13)
[2025-05-10] MEDS: TORADOL 15 MG IV ×2 (08:13→19:20)
[2025-05-10] MEDS: PROTONIX IV 40 MG IV (08:13)
[2025-05-10 09:49] LABS: INR 1.18; PT 15.3 Sec (11.4-14.6)
[2025-05-10 09:50] LABS: APTT 39.0 Sec (23.4-35.0)
--- NOTE | 2025-05-10 10:01 | W.PN.CRS1 ---
Addendum entered and electronically signed by Ervin Vázquez MD 05/10/25 23:35:
For CDI purposes: patient has partial SBO, possible complete SBO
Original Note:
Today's Communication / Plan
-
As below
Assessment/Plan
-
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
pain, distention, nausea and 1 episode of bilious vomiting. WBC 5.6, CT scan demonstrating relatively high-grade small bowel obstruction in the mid abdomen with adjacent areas of caliber transition
Tmax 100.5, HR mildly tachycardic to 100s, normotensive
WBC 11.9 from 5.6, Hb 12.5, CR 0.8
� High-grade SBO likely adhesive, less likely malignant
�Repeat AXR shows no improvement in SBO; HR remains mildly elevated and WBC increased; abdominal exam remains the same; due to my concern for small bowel volvulus, recommend proceeding with surgery
�Lengthy discussion regarding the risks benefits and alternatives; we can continue nonoperative measures, but I would be concerned about worsening clinical status and ischemia to the bowel; with surgery, risks include, but are not limited to,
bleeding, infection, damage to my structures, need for bowel resection, need for open incision, unexpected events and risks of anesthesia; all questions were answered and the patient and patient's spouse were appreciative; the patient agreed to
proceed with surgery and consent was signed
�Continue NGT and IVF
�Pain control with Toradol and Dilaudid as needed
�Encourage IS/OOB
� DVT PPx with Lovenox
�Ordered stat type and screen and coags
Subjective Data
Subjective Data
Date of Service: May 10, 2025
No issues overnight. Patient passed 1 episode of flatus, but continues having abdominal pain requiring Toradol. With Toradol, but is controlled. Denies any N/V or BMs.
Objective Data
-
Vital Signs
Temp Pulse Resp BP Pulse Ox
98.6 F 107 18 128/79 97
05/10/25 07:36 05/10/25 07:36 05/10/25 07:36 05/10/25 07:36 05/10/25 07:36
Intake & Output
05/09/25 05/10/25 05/11/25
06:59 06:59 06:59
Intake Total 1230 / 1230
Output Total 750 / 750
Balance 480 / 480
Intake:
IV fluids (Total) 1200 / 1200
Amount instilled into GI Tube ( 30 / 30
Total)
[place] Sump 30 / 30
Output:
Gastrointestinal tube output ( 750 / 750
Total)
[place] Sump 750 / 750
Other:
Number of approximated MODERATE 1
amounts of urine
Number of approximated LARGE 1
amounts of urine
Lab Results
05/10/25 06:08
05/10/25 06:07
Physical Exam
-
General: No Acute Distress and AOx3
HEENT: Grossly Normal
Abdomen: Soft, Distended (Mildly distended with subtle tympany), Tender (Minimally diffusely tender), No Guarding and No Rebound
Skin: Warm and Dry
--- NOTE | 2025-05-10 10:57 | PN.CDI ---
CDI
- -
CDI:
Physician Documentation Request
Admit Date: 05/09/25 14:29
Dear Doctor/PA,
Please review the following and provide your response in the progress notes.
Clinical Indicators:
Pt admitted with SBO likely 2/2 adhesions
Abdominal xray 05/10, ' Increased number of distended loops of small bowel with associated air-fluid level suggestive of small bowel obstruction. This may be partial considering there is air in the rectum which is increased....'
Please specify the suspected extent of the documented SBO:
Partial
Complete
Other ( please specify)
Use of terms such as suspected, likely, concern for, or probable (associated with a specific diagnosis that is being evaluated, monitored, or treated as if it exists) are acceptable and can be coded in the inpatient setting, when documented at the
time of discharge.
Thank you,
Denisse Tijerina RN
CDI Specialist
[facility]
Please use your independent medical judgment in providing your response.
--- NOTE | 2025-05-10 13:36 | W.IMMPOSTOP ---
Addendum entered and electronically signed by Ervin Vázquez MD 05/10/25 14:06:
discussed with over the phone
Original Note:
Surgical Immed Post Op Note
-
Primary Surgeon: Ervin Vázquez MD
Assisting Surgeon: VIDYA Dee
Pre-op Diagnosis: Small bowel obstruction due to small bowel volvulus
Post-op Diagnosis: Small bowel obstruction due to small bowel volvulus
Procedure Performed: Laparoscopic lysis of adhesions, conversion to midline laparotomy, adhesiolysis greater than 1 hour, tap block
Anesthesia Type: General
Specimen / Cultures: None
Estimated Blood Loss: 20 mL
IV fluids: 1.2 L
UOP: 100 mL
Complications: None
Operative Findings: Obtained access via Veress needle and Optiview technique; multiple loops of dilated small bowel; no evidence of peritoneal disease on the liver or peritoneum; placed 2 additional ports under direct visualization; identified point
of transition with loop of small bowel volvulized 180 degrees; complete length of small bowel visible appeared healthy and well-perfused; attempted laparoscopic lysis of adhesions; however, there were numerous adhesions at multiple different points
and with the small bowel distention, I elected to convert to open; performed a lower midline incision through prior scar; lysed additional adhesions and untwisted the bowel; ran the small bowel twice from the ligament of Treitz to the ligament of
Treves and no injuries identified; prior anastomosis healthy without any evidence of narrowing or disease; performed TAP block with 20 cc of 0.2% Marcaine with epi and 0.2 mg of Decadron bilaterally; placed Seprafilm under incision; closed with 0
PDS and 4-0 Monocryl; Dermabond to incisions; left NGT and Gilbert in place
--- NOTE | 2025-05-10 13:41 | OR.RPT ---
Operative Report
Operative Report
DATE OF OPERATION: 05/10/2025
SURGEON: Ervin Vázquez MD
PREOPERATIVE DIAGNOSIS: Small bowel obstruction due to small bowel volvulus
POSTOPERATIVE DIAGNOSIS: Small bowel obstruction due to small bowel volvulus
OPERATION: Laparoscopic lysis of adhesions, conversion to midline laparotomy, adhesiolysis greater than 1 hour, TAP block
ASSISTANTS:
1. VIDYA Stoddard
ANESTHESIA: General
ESTIMATED BLOOD LOSS: 20 mL
UOP: 100 mL
IVF: 1.2 L
FINDINGS:
1. Numerous adhesions and dilated loops of bowel precluding safe laparoscopic adhesiolysis, converted to open
2. Identified volvulized loop of mid-jejunum due to interloop adhesions; bowel remained healthy after adhesiolysis without any injury
SPECIMENS:
1. None
DRAINS: None
COMPLICATIONS: No immediate complications.
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 She presented to the [place] ED with acute onset abdominal pain associated
with bilious vomiting. A CT scan was done showing a high-grade small bowel obstruction with the possibility of small bowel volvulus. There was no obvious peritoneal disease and NGT was placed so the etiology was felt to be less likely adhesive.
After 12 hours of decompression, she had a low-grade fever with slight worsening of tachycardia and no improvement of small bowel distention seen on abdominal x-ray. I discussed the risks of continued nonoperative measures and the risks of surgery
and the patient elected to proceed with surgery. The operation was discussed with the patient in detail, including the risks, benefits and alternatives. Risks described included, but not limited to, bleeding, infection, possibility of small bowel
resection, anastomotic leak if performed, damage to nearby structures, recurrence of small bowel obstruction, conversion to open and anesthetic risks. The patient understood and agreed to proceed.
PROCEDURE IN DETAIL: The patient was taken to the operating room and placed on the operating table in supine position. Sequential compression devices were placed bilaterally. General anesthesia was induced and the patient was intubated without
complication. The patient was placed in supine position with the left arm tucked. Gilbert catheter was placed with sterile technique. NG tube was placed pre-operatively. Pre-incision antibiotics were given. The abdomen was prepped and draped in a
sterile fashion. A marking pen was used to kuldip out the midline. A time-out was performed verifying the correct patient, procedure, operative site, positioning, and special equipment.
I made a 5 mm incision at Burnham's point. I gained access to the abdomen with the Veress needle. After 3 clicks, insufflation was connected and opening pressure was less than 8 mmHg. The abdomen was insufflated to 15 mmHg and the patient
tolerated insufflation well. I advanced a 5 mm port via Optiview technique and intra-abdominal placement was confirmed. The abdomen was explored. No injury from Veress needle or port entry was identified. The stomach was adequately decompressed.
There was no evidence of peritoneal disease on the surface of the liver or visible peritoneum. There were 3 obvious distended loops of small bowel with a transition point due to apparent interloop adhesions. I placed 2 additional 5 mm ports in
the left lower quadrant and left mid abdomen, taking care to avoid injury to the epigastric vessels. The patient was placed in slight Trendelenburg with right side up. No visible bowel appeared unhealthy or necrotic. I began lysing adhesions with
the laparoscopic LigaSure. After lysing a few visible adhesions, I was able to partially untwist the concerning loop of bowel. However, I identified more intra-loop adhesions as I moved along. I continued lysing these adhesions, but it was clear
that the adhesions were quite extensive. I attempted to run the bowel proximally, but the distended loop turned under another adhesion, likely representing the second transition point as seen on the CT scan. At this point, I felt that further
attempt at laparoscopic adhesiolysis would be technically difficult and put the patient at undue risk for iatrogenic injury.
I created a lower midline incision through the patient's prior midline scar using electrocautery. I took this through the subcutaneous tissue down to the fascia. Hemostasis was assured. I incised the linea alba and identified preperitoneal fat.
I bluntly dissected through the peritoneum and entry into the abdomen was confirmed. The abdomen decompressed. No injuries from entry were identified. The fascia was opened to the length of the skin. A Prolene stitch along the linea alba was
encountered from her previous laparotomy and removed. An Juan Manuel retractor was placed. The small bowel was gently eviscerated and additional interloop adhesions were taken down. These adhesions were extensive but filmy. I was able to untwist the
loop of small bowel and free up both transition points. I identified the terminal ileum and cecum. I ran the small bowel from the ligament of Treves to the ligament of Treitz. The terminal ileum was decompressed. There were numerous interloop
adhesions along the distal ileum, but were not concerning for future obstruction and were left in place. The remainder of the small bowel was freed from adhesions and appeared healthy without any evidence of injury. I ran the bowel once more from
the ligament of Treitz to the ligament of Treves and again identified no injuries. The entire length of the bowel was well-perfused.
I raised small subcutaneous flaps 1 to 2 cm around the fascia. The local I used was 30 mm of 0.25% Marcaine with epinephrine mixed with 0.3 mg of Decadron. I injected 10 cc of this bilaterally for a transversus abdominis plane block. I placed
Seprafilm under the incision. I closed the fascia starting at the corners and ending in the middle with running 0 PDS. I injected the remainder of the local around the incisions. I closed the skin with 4-0 Monocryl in a running subcuticular
fashion. I closed the 3 port sites with interrupted subcuticular 4 Monocryl. The incisions were dressed with Dermabond.
At this point, the procedure was complete. The patient was awoken and extubated without complication. All needle, sponge and instrument counts were reported as correct. The patient tolerated the procedure well and was transferred to the recovery
room in stable condition with the nasogastric tube and Gilbert in place.
Of note, Rebeca DASILVA, project assistant, was necessary during this procedure for traction, countertraction, and exploratory purposes. I was present for the entire duration of the case.
DICTATED BY: Ervin Vázquez MD
[2025-05-10] MEDS: DILAUDID 0.5 MG IV (14:03)
--- NOTE | 2025-05-10 14:50 | PTCARENOTE ---
1445 Pt arrived 1445 from PACU. VSS. 100% on 2LO2. Midline incision open to air with glue and 2 puncture lap sites. bed locked and in lowest position. call hernandez with in reach. care ongoing.
--- NOTE | 2025-05-10 15:18 | CM ---
CM following re: discharge planning.
Reviewed pt's chart, met with pt.
Pt is POD#0 Laparoscopic lysis of adhesions, conversion to midline laparotomy, continue supportive care.
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
D/C plan: hoe with anticipated no needs. to transport at discharge.
CM will follow with discharge plan updates as hospitalization progresses
[2025-05-10] MEDS: LOVENOX 40 MG SC (17:03)
[2025-05-11 03:03] VITALS: BP 107/68
[2025-05-11] MEDS: ANESTHETIC LOZENGE 1 LOZENGE PO ×3 (05:07→19:02)
[2025-05-11] MEDS: NORMOSOL-R/PLASMALYTE-A 1000 IV ×2 (05:07→15:45)
[2025-05-11] MEDS: TORADOL 15 MG IV ×4 (05:07→23:14)
[2025-05-11 05:17] LABS: Blood Urea Nitrogen 24 mg/dl (7-17); Calcium 8.3 mg/dl (8.4-10.2); Carbon Dioxide 29 mmol/L (22-30); Chloride 106 mmol/L (98-107); Estimated Creatinine Clearance 97 ml/min; Glucose 112 mg/dl (70-99); Potassium 4.2 mmol/L (3.5-5.1); Sodium 139 mmol/L (135-145); eGFR > 60.00
[2025-05-11 05:21] LABS: Hematocrit 29.5 % (37.0-47.0); Hemoglobin 9.9 g/dL (12.0-16.0); Mean Corp Hgb Conc. 33.6 g/dL (33.0-37.0); Mean Corpuscular Volume 99.0 fL (81.0-99.0); Nucleated Red Blood Cells % 0 %; Platelet Count 112 10^3/uL (130-400); Red Cell Dist. Width 11.9 % (11.5-14.5)
[2025-05-11 06:00] VITALS: BMI 23.3
[2025-05-11 07:00] VITALS: BP 113/64
[2025-05-11] MEDS: PROTONIX IV 40 MG IV (08:20)
[2025-05-11] MEDS: NSS (PRESERVATIVE FREE) 10 ML IV (08:20)
[2025-05-11] MEDS: OFIRMEV 100 IV ×3 (08:21→20:02)
--- NOTE | 2025-05-11 09:44 | W.PN.CRS1 ---
Today's Communication / Plan
-
N.p.o., IV fluids, NG tube to low intermittent wall suction.
Pain control
Out of bed and ambulate.
Okay for ice chips and chewing gum
DVT PPx with Lovenox
Colorectal surgery will continue to follow
Assessment/Plan
-
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
pain, distention, nausea and 1 episode of bilious vomiting. WBC 5.6, CT scan demonstrating relatively high-grade small bowel obstruction.
POD #1 from a lap converted to open lysis of adhesions.
N.p.o., IV fluids, NG tube to low intermittent wall suction.
Pain control
Out of bed and ambulate.
Okay for ice chips and chewing gum
DVT PPx with Lovenox
Colorectal surgery will continue to follow
Subjective Data
Procedure
05/10/2025 laparoscopic converted to exploratory laparotomy lysis of adhesions
Subjective Data
Date of Service: May 11, 2025
Interval Events:
No acute events overnight. Slept well. Pain Controlled. Denies Nausea/Vomiting, -bowel function. NG with bilious output
Objective Data
-
Vital Signs
Temp Pulse Resp BP Pulse Ox
98.4 F 91 16 113/64 96
05/11/25 07:00 05/11/25 07:00 05/11/25 07:00 05/11/25 07:00 05/11/25 07:00
Intake & Output
05/10/25 05/11/25 05/12/25
06:59 06:59 06:59
Intake Total 1230 / 1230 230 / 230 90 / 90
Output Total 750 / 750 1175 / 1175 600 / 600
Balance 480 / 480 -945 / -945 -510 / -510
Intake:
Oral fluids 0 / 0
IV fluids (Total) 1200 / 1200 200 / 200
Normosol 200 / 200
Amount instilled into GI Tube ( 30 30
Total)
Yell Sump / 30
Output:
Gastrointestinal tube output ( 750 / 750 525 / 525 350 / 350
Total)
Yell Sump 750 / 750 525 / 525 350 / 350
Urine, Gilbert 650 / 650 250 / 250
Other:
Number of approximated MODERATE 1 1
amounts of urine
Number of approximated LARGE 1
amounts of urine
Lab Results
05/11/25 04:06
Physical Exam
-
General: No Acute Distress and AOx3
HEENT: Grossly Normal
Abdomen: Soft, Distended (Mildly distended with subtle tympany), Tender (Minimally diffusely tender), No Guarding and No Rebound
Skin: Warm and Dry
Incision: Clear, Dry, Intact
Data Reviewed
-
CT Scan: Image Reviewed
Total Time Spent with Patient (in minutes): 20
[2025-05-11 11:50] VITALS: BP 106/61
[2025-05-11 12:20] LABS: Hematocrit 28.4 % (37.0-47.0); Hemoglobin 9.7 g/dL (12.0-16.0); Mean Corp Hgb Conc. 34.2 g/dL (33.0-37.0); Mean Corpuscular Volume 98.6 fL (81.0-99.0); Platelet Count 104 10^3/uL (130-400); Red Cell Dist. Width 12.0 % (11.5-14.5)
[2025-05-11 16:23] VITALS: BP 105/57
[2025-05-11] MEDS: LOVENOX 40 MG SC (17:40)
--- NOTE | 2025-05-11 17:57 | PTCARENOTE ---
Pt ambulatory in the halls. Pt reports passing flatus. Care ongoing.
[2025-05-11] MEDS: NORMOSOL-R/PLASMALYTE-A IV (20:17)
[2025-05-11 23:00] VITALS: BP 116/63
[2025-05-12] MEDS: OFIRMEV 100 IV ×4 (02:13→23:14)
[2025-05-12] MEDS: NORMOSOL-R/PLASMALYTE-A 1000 IV (02:13)
[2025-05-12 05:23] LABS: Hematocrit 27.3 % (37.0-47.0); Hemoglobin 9.0 g/dL (12.0-16.0); Mean Corp Hgb Conc. 33.0 g/dL (33.0-37.0); Mean Corpuscular Volume 101.1 fL (81.0-99.0); Platelet Count 85 10^3/uL (130-400); Red Cell Dist. Width 11.8 % (11.5-14.5)
[2025-05-12 05:52] LABS: Blood Urea Nitrogen 18 mg/dl (7-17); Calcium 8.3 mg/dl (8.4-10.2); Carbon Dioxide 24 mmol/L (22-30); Chloride 107 mmol/L (98-107); Estimated Creatinine Clearance 97 ml/min; Glucose 53 mg/dl (70-99); Magnesium 2.2 mg/dl (1.6-2.3); Potassium 3.6 mmol/L (3.5-5.1); Sodium 138 mmol/L (135-145); eGFR > 60.00
[2025-05-12 06:04] LABS: Glucose - Point of Care 50 mg/dl (70-99)
[2025-05-12] MEDS: DEXTROSE 50% SYRINGE 12.5 GRAMS IV (06:05)
--- NOTE | 2025-05-12 06:08 | PTCARENOTE ---
Critical lab glucose 53, finger stick 5, DELIVERY PROFESSIONAL notified, per protocol for NPO pt, 25ml/ 50% dextrose given IV. Pt educated on medication and not to ambulate at this time, in room with pt. Pt was easily arousable from sllep denied any symptoms @
that time of hypoglycemia, recheck in 15 min.
--- NOTE | 2025-05-12 06:19 | W.PN.UPDATE ---
Update Note
Progress Note Update
Pt with low glucose on am lab (53). finger stick also 50. Add hypoglycemic medication and accuchecks q6h until BG>90 x 24 hr.
[2025-05-12 06:26] LABS: Glucose - Point of Care 126 mg/dl (70-99)
--- NOTE | 2025-05-12 06:27 | PTCARENOTE ---
pt blood glucose after 15 min of receiving Dextrose 126, still denies any symptoms.
[2025-05-12 07:00] VITALS: BP 111/66
[2025-05-12] MEDS: PROTONIX IV 40 MG IV (08:16)
[2025-05-12] MEDS: NSS (PRESERVATIVE FREE) 10 ML IV (08:16)
[2025-05-12] MEDS: TORADOL 15 MG IV ×3 (08:20→21:35)
--- NOTE | 2025-05-12 10:23 | W.PN.GS2 ---
Today's Communication / Plan
-
NGT clamp trial
Assessment / Plan
-
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
obstruction d/t adhesions.
POD #2 from a lap converted to open lysis of adhesions.
Starting to pass flatus
AFVSS
Hypoglycemic this am
Acute blood loss anemia present secondary to expected losses with hemodilution component. Stable.
Plan:
NPO with sips/chips
NGT clamp trial, will remove this pm if tolerates
Change IVF to D5LR given hypoglycemia
Pain control, wishes to avoid narcotics: scheduled ofirmev and prn toradol (dilaudid ordered if needed)
Out of bed and ambulate.
DVT PPx with Lovenox
Subjective Data
-
Date of Service: May 12, 2025
Pt seen and examined at bedside with Dr. Kapadia. Has started passing some flatus. Denies n/v. Does feel bloated and puffy.
Objective Data
-
Intake and Output
05/11/25 05/12/25 05/13/25
06:59 06:59 06:59
Intake Total 230 / 230 3330 / 3330
Output Total 1175 / 1175 1550 / 1550
Balance -945 / -945 1780 / 1780
Intake:
Oral fluids 0 / 0 360 / 360
IV fluids (Total) 200 / 200 2300 / 2300
Normosol 200 / 200
IV piggybacks 400 / 400
Amount instilled into GI Tube ( 30 / 30 270 / 270
Total)
[place] Sump 30 / 30 270 / 270
Output:
Gastrointestinal tube output ( 525 / 525 1100 / 1100
Total)
[place] Sump 525 / 525 1100 / 1100
Urine, Gilbert 650 / 650 250 / 250
Urine, Voided 200 / 200
Other:
Number of approximated MODERATE 1 2
amounts of urine
Vital Signs
Temp Pulse Resp BP Pulse Ox
98.2 F 94 16 111/66 97
05/12/25 07:00 05/12/25 07:00 05/12/25 07:00 05/12/25 07:00 05/12/25 07:00
Lab Results
05/12/25 04:48
05/12/25 04:48
Calcium 8.3 mg/dl (8.4-10.2) L 05/12/25 04:48
Magnesium 2.2 mg/dl (1.6-2.3) 05/12/25 04:48
Total Bilirubin 2.3 mg/dl (0.2-1.3) H 05/09/25 09:35
AST 52 U/L (14-36) H 05/09/25 09:35
ALT 81 U/L (0-35) H 05/09/25 09:35
Alkaline Phosphatase 193 U/L (38-126) H 05/09/25 09:35
Total Protein 8.3 g/dl (6.3-8.2) H 05/09/25 09:35
Albumin 5.1 g/dl (3.5-5.0) H 05/09/25 09:35
Physical Exam
-
Gen: NAD
Abd: soft, mild tenderness, mild distension, tympany, non-peritoneal, incisions c/d/i - no erythema, ecchymosis or drainage
NGT with gastric outputs
[2025-05-12] MEDS: D5LR 1000 IV ×2 (11:45→23:14)
[2025-05-12] MEDS: OFIRMEV IV ×2 (11:47→13:13)
[2025-05-12 15:00] VITALS: BP 109/60
[2025-05-12] MEDS: LOVENOX 40 MG SC (17:37)
[2025-05-12 18:04] LABS: Glucose - Point of Care 75 mg/dl (70-99)
--- NOTE | 2025-05-12 21:15 | PTCARENOTE ---
Pt received w/NGT clamped. Cautious about having removed. Denies nausea, increased pain, reports feeling 'bloated', + flatus. TT to Dr. Kapadia requesting clarification if NGT should be removed. Instructed to connect to suction for 1H and if
residual < 200 mL light yellow/green in color, ok to pull. Output over 1H <100 mL, light yellow. NGT pulled, small amount of blood from R nare when removed. Pt reports traumatic insertion.
[2025-05-12 23:01] VITALS: BP 105/60
[2025-05-13 00:13] LABS: Glucose - Point of Care 85 mg/dl (70-99)
[2025-05-13 03:56] LABS: Glucose - Point of Care 92 mg/dl (70-99)
[2025-05-13] MEDS: TORADOL 15 MG IV ×3 (04:15→19:39)
[2025-05-13 06:00] VITALS: BMI 23.4
[2025-05-13] MEDS: OFIRMEV 100 IV (06:09)
--- NOTE | 2025-05-13 06:18 | PTCARENOTE ---
R pedal area swollen, +2. Instructed YAKOV hose should be over toes. Reports no pain/discomfort. Ambulating halls.
[2025-05-13 06:46] LABS: Glucose - Point of Care 84 mg/dl (70-99)
[2025-05-13 07:36] VITALS: BMI 23.4
[2025-05-13 08:00] VITALS: BP 116/67
[2025-05-13] MEDS: NSS (PRESERVATIVE FREE) 10 ML IV (08:44)
[2025-05-13] MEDS: PROTONIX IV 40 MG IV (08:44)
--- NOTE | 2025-05-13 11:08 | W.PN.CRS1 ---
Today's Communication / Plan
-
clears
Assessment/Plan
-
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
obstruction d/t adhesions.
POD #3 from a lap converted to open lysis of adhesions.
Starting to pass flatus
AFVSS
Plan:
- NGT removed last night. Advanced to clears.
-On D5LR given hypoglycemia
-Pain control, wishes to avoid narcotics: scheduled ofirmev and prn toradol (dilaudid ordered if needed)
-Out of bed and ambulate.
-DVT PPx with Lovenox
-OR pathology pending
Subjective Data
Procedure
05/10/2025 laparoscopic converted to exploratory laparotomy lysis of adhesions
Subjective Data
Date of Service: May 13, 2025
Patient states she has some flatus. She feels a little bloated. Denies nausea or vomiting. She has not had a bowel movement yet.
Objective Data
-
Vital Signs
Temp Pulse Resp BP Pulse Ox
98.1 F 70 18 116/67 98
05/13/25 08:00 05/13/25 08:00 05/13/25 08:00 05/13/25 08:00 05/13/25 08:45
Intake & Output
05/12/25 05/13/25 05/14/25
06:59 06:59 06:59
Intake Total 3330 / 3330 2140 / 2140
Output Total 1550 / 1550 20 / 20
Balance 1780 / 1780 2120 / 2120
Intake:
Oral fluids 360 / 360
IV fluids (Total) 2300 / 2300 1940 / 1940
IV piggybacks 400 / 400 200 / 200
Amount instilled into GI Tube ( 270 / 270
Total)
[place] Sump 270 / 270
Output:
Gastrointestinal tube output ( 1099 / 1099
Total)
[place] Sump 1099 / 1099
Urine, Gilbert 250 / 250
Urine, Voided 200 / 200
Other:
Number of approximated MODERATE 2
amounts of urine
Number of approximated LARGE 1
amounts of urine
Lab Results
05/12/25 04:48
05/12/25 04:48
Physical Exam
-
General: No Acute Distress and AOx3
Abdomen: Soft, Non Distended and Tender (mild lower incision)
Skin: Warm and Dry
Incision: Clear, Dry, Intact
[2025-05-13] MEDS: D5LR 1000 IV (12:57)
--- NOTE | 2025-05-13 13:57 | CM ---
CM following re: discharge planning.
Reviewed pt's chart, met with pt.
Pt is POD#3 Laparoscopic lysis of adhesions, conversion to midline laparotomy, continue supportive care. NGT removed yesterday, advancing diet.
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
D/C plan: hoe with anticipated no needs. to transport at discharge.
CM will follow with discharge plan updates as hospitalization progresses
[2025-05-13 15:37] VITALS: BP 120/66
[2025-05-13] MEDS: LOVENOX 40 MG SC (18:21)
[2025-05-13 23:00] VITALS: BP 108/67
[2025-05-14] MEDS: D5LR 1000 IV (01:11)
[2025-05-14] MEDS: TORADOL 15 MG IV ×3 (03:11→15:17)
[2025-05-14 06:00] VITALS: BMI 23.0
[2025-05-14 06:37] LABS: Hematocrit 29.2 % (37.0-47.0); Hemoglobin 9.7 g/dL (12.0-16.0); Mean Corp Hgb Conc. 33.2 g/dL (33.0-37.0); Mean Corpuscular Volume 96.1 fL (81.0-99.0); Nucleated Red Blood Cells % 0 %; Platelet Count 122 10^3/uL (130-400); Red Cell Dist. Width 11.4 % (11.5-14.5)
[2025-05-14 06:43] LABS: Blood Urea Nitrogen 5 mg/dl (7-17); Calcium 8.7 mg/dl (8.4-10.2); Carbon Dioxide 31 mmol/L (22-30); Chloride 104 mmol/L (98-107); Estimated Creatinine Clearance 97 ml/min; Glucose 105 mg/dl (70-99); Potassium 3.3 mmol/L (3.5-5.1); Sodium 138 mmol/L (135-145); eGFR > 60.00
[2025-05-14 08:05] VITALS: BP 125/78
[2025-05-14] MEDS: NSS (PRESERVATIVE FREE) 10 ML IV (08:08)
[2025-05-14] MEDS: PROTONIX IV 40 MG IV (08:09)
--- NOTE | 2025-05-14 08:19 | W.PN.CRS1 ---
Today's Communication / Plan
-
regular diet
possible d/c later today
Assessment/Plan
-
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
obstruction d/t adhesions.
POD #4 from a lap converted to open lysis of adhesions.
Starting to pass flatus
AFVSS
Plan:
-Advance diet to regular
-DC IVFs.
-Pain control, wishes to avoid narcotics: scheduled ofirmev and prn toradol. DC IV Dilaudid.
-Out of bed and ambulate.
-DVT PPx with Lovenox
-OR pathology pending
-Possible discharge later today if tolerating a diet. All discharge instructions discussed with patient including medications, activity levels, and follow up. All questions addressed.
Subjective Data
Procedure
05/10/2025 laparoscopic converted to exploratory laparotomy lysis of adhesions
Subjective Data
Date of Service: May 14, 2025
Patient states she feels less bloated today. She is having bowel movements and passing flatus. She is 'ready to go home!'. She is sore but her pain is controlled.
Objective Data
-
Vital Signs
Temp Pulse Resp BP Pulse Ox
98.2 F 74 16 108/67 99
05/13/25 23:00 05/13/25 23:00 05/13/25 23:00 05/13/25 23:00 05/13/25 23:00
Intake & Output
05/13/25 05/14/25 05/15/25
06:59 06:59 06:59
Intake Total 0 / 2140 216 / 2159
Output Total
Balance 2119
Intake:
Oral fluids 1200 / 1200
IV fluids (Total) 1939 960 / 960
IV piggybacks 200 / 200
Output:
Gastrointestinal tube output (
Total)
[place] Sump
Other:
Number of approximated MODERATE 5
amounts of urine
Number of approximated LARGE 1
amounts of urine
Lab Results
05/14/25 05:33
05/14/25 05:33
Physical Exam
-
General: No Acute Distress and AOx3
Abdomen: Soft, Non Distended and Tender (mild around incision)
Skin: Warm and Dry
Incision: Clear, Dry, Intact
--- NOTE | 2025-05-14 13:04 | CM ---
Patient seen at bedside on with patient spouse. Patient plan is for discharge home with no needs. Patient with questions about dietary but plan is for discharge home later today. CM will continue to follow for discharge planning
needs.
Plan; home with no needs.
--- NOTE | 2025-05-14 14:20 | PN.CDI ---
CDI
- -
CDI:
Physician Documentation Request
Admit Date: 05/09/25 14:29
Dear Doctor/PA,
Please review the following and provide your response in the progress notes.
Clinical Indicators:
Pt admitted with pSBO due to adhesions s/p surgery on 05/10
Progress note 05/12, ' Acute blood loss anemia present secondary to expected losses with hemodilution component...'
Trended Blood counts below
05/11/25 05/11/25 05/12/25
04:06 12:12 04:48
WBC 4.7 L 4.6 L 3.7 L
Hgb 9.9 L D 9.7 L 9.0 L
Hct 29.5 L 28.4 L 27.3 L
Plt Count 112 L 104 L 85 L
05/14/25
05:33
WBC 3.5 L
Hgb 9.7 L
Hct 29.2 L
Plt Count 122 L D
Please provide a diagnosis for the above laboratory findings:
Pancytopenia
ABLA only
Other ( please specify)
Use of terms such as suspected, likely, concern for, or probable (associated with a specific diagnosis that is being evaluated, monitored, or treated as if it exists) are acceptable and can be coded in the inpatient setting, when documented at the
time of discharge.
Thank you,
Denisse Tijerina RN
CDI Specialist
[place] [facility]
Please use your independent medical judgment in providing your response.
[2025-05-14 15:00] VITALS: BP 111/71
[2025-05-14] MEDS: D5LR IV (15:16)
== END 2025-05-14 16:22 | disposition home or self-care (01) | DRG 336 ==
LOC: 2 SOUTH 14:29
PROVIDERS: Physician Assistant; Radiology Neuroradiology; Registered Nurse; ADMITTING PHYSICIAN Surgery; EMERGENCY PHYSICIAN Student in an Organized Health Care Education/Training Program; FAMILY PHYSICIAN Internal Medicine
PROC: 0D9670Z Drainage of Stomach with Drainage Device, Via Natural or Artificial Opening (ICD-10-PCS; 2025-05-09)
PROC: 0DN80ZZ Release Small Intestine, Open Approach (ICD-10-PCS; 2025-05-10)
DX: K56.52 Intestinal adhesions [bands] with complete obstruction (principal); D62 Acute posthemorrhagic anemia; J45.998 Other asthma; K56.2 Volvulus; K21.9 Gastro-esophageal reflux disease without esophagitis; E16.2 Hypoglycemia, unspecified; Z92.21 Personal history of antineoplastic chemotherapy; Z85.068 Personal history of other malignant neoplasm of small intestine; Z90.49 Acquired absence of other specified parts of digestive tract; Z53.31 Laparoscopic surgical procedure converted to open procedure; Z88.8 Allergy status to other drugs, medicaments and biological substances
CPT/HCPCS: 71045; 74019; 74177; 80048; 80053; 82962; 83605; 83690; 83735; 85025; 85027; 85610; 85730; 93005; 96374; 96375; 99285; J1335; Q9967